=== PATIENT | female | born 1965 ===

== ENCOUNTER 2017-02-28 09:10 | Inpatient (IN) | payer OTHER, MEDICAID ==
[2017-02-28 09:15] VITALS: BMI 37.0
--- NOTE | 2017-02-28 09:19 | ED PDOC ---
Arrival/HPI - General Time Seen by Provider: 02/28/17 09:13 Historian: Patient - History of Present Illness Narrative History of Present Illness (Text): 02/28/17 09:18 51 y/o female, pmh including htn/open heart surgery with mechanical valve in 2006 which she is on the coumadin, nkda, c/o abdominal/chest pain with diarrhea and left leg pain with no fall or trauma, no recent traveling or use any oral antibiotic for the past 2-3 weeks. Pt. stated that she woke up yesterday morning around 7am, feeling nauseous/chest pain with multiple episodes of waterry stool throughout the day which the diarrhea has decrease today, no dizziness, no headache, no numbness or tingling but she started to developed lt. lower leg pain but able to bear weight and walk to the ER without limping. Pt. has no palpitation, no other medical or psychological complaints. Past Medical History - Provider Review Nursing Documentation Reviewed: Yes - Infectious Disease Hx of Infectious Diseases: None - Tetanus Immunization Tetanus Immunization: Unknown - Cardiac Hx Cardiac Disorders: Yes Hx Internal Defibrillator: Yes Hx Mitral Valve Prolapse: Yes Other/Comment: LEFT CHEST WALL IMPLANT FOR ARRYTHMIAS - Pulmonary Hx Respiratory Disorders: Yes Hx Sleep Apnea: Yes - Neurological Hx Neurological Disorder: No - HEENT Hx HEENT Disorder: No - Renal Hx Renal Disorder: No - Endocrine/Metabolic Hx Endocrine Disorders: No - Hematological/Oncological Hx Blood Disorders: Yes Other/Comment: BLOOD TRANSFUSIONS - Integumentary Hx Dermatological Disorder: No - Musculoskeletal/Rheumatological Hx Falls: No - Gastrointestinal Hx Gastrointestinal Disorders: No - Genitourinary/Gynecological Hx Genitourinary Disorders: No - Psychiatric Hx Psychophysiologic Disorder: Yes Hx Depression: Yes Hx Substance Use: No - Surgical History Hx Hysterectomy: Yes Hx Open Heart Surgery: Yes Hx Valve Replacement: Yes - Anesthesia Hx Anesthesia Reactions: No Hx Malignant Hyperthermia: No - Suicidal Assessment Feels Threatened In Home Enviroment: No Family/Social History - Physician Review Nursing Documentation Reviewed: Yes Family/Social History: Unknown Family HX Smoking Status: Never Smoked Hx Alcohol Use: No Hx Substance Use: No Hx Substance Use Treatment: No Allergies/Home Meds Allergies/Adverse Reactions: Allergies No Known Allergies Allergy (Verified 02/28/17 09:18) Home Medications: Home Meds Medication Instructions Recorded Confirmed Warfarin [Coumadin] 5 mg PO DAILY 07/31/12 02/28/17 Acetaminophen/Oxycodone Hydr 1 tab PO PRN PRN 08/22/15 02/28/17 [Percocet 10/325 mg Tab] Furosemide [Lasix] 40 mg PO .THREETIMESPER WEEK PRN 08/22/15 02/28/17 Albuterol Sulfate [Proair Hfa] 1 inh INH PRN PRN 02/02/17 02/28/17 Carvedilol [Coreg] 3.125 mg PO BID 02/02/17 02/28/17 Lisinopril [Zestril] 5 mg PO DAILY 02/02/17 02/28/17 Zolpidem [Ambien] 10 mg PO HS 02/28/17 02/28/17 Review of Systems - Review of Systems Constitutional: Fatigue. absent: Fevers Eyes: absent: Vision Changes ENT: absent: Hearing Changes Respiratory: absent: SOB, Cough Cardiovascular: Chest Pain Gastrointestinal: Abdominal Pain, Diarrhea, Nausea. absent: Constipation, Vomiting, Hematochezia Genitourinary Female: absent: Dysuria, Frequency Musculoskeletal: Myalgias. absent: Arthralgias, Back Pain, Neck Pain, Joint Swelling Skin: absent: Rash, Pruritis, Skin Lesions, Laceration, Abscess, Ulcer, Cellulitis Neurological: absent: Headache, Dizziness, Focal Weakness, Gait Changes, Speech Changes, Facial Droop, Disequilibrium, Seizure Psychiatric: absent: Anxiety, Depression, Suicidal Ideation Physical Exam Vital Signs Reviewed: Yes Vital Signs Temp Pulse Resp BP Pulse Ox 02/28/17 13:00 86 18 113/79 98 02/28/17 11:00 111/85 98 02/28/17 09:59 111/83 02/28/17 09:15 97.9 F 92 H 16 99/76 L 97 Temperature: Afebrile Pulse: Regular Respiratory Rate: Normal Appearance: Positive for: Well-Appearing, Non-Toxic, Uncomfortable Pain Distress: Mild Mental Status: Positive for: Alert and Oriented X 3 - Systems Exam Head: Present: Atraumatic, Normocephalic Pupils: Present: PERRL Extroacular Muscles: Present: EOMI Conjunctiva: Present: Normal Mouth: Present: Moist Mucous Membranes Pharnyx: No: ERYTHEMA, EXUDATE, TONSILS ENLARGED, Uvular Deviation, Muffled/ Hoarse Voice, Soft Palate/Uvular Edema Nose (External): Present: Atraumatic. No: Abrasion, Contusion, Laceration Nose (Internal): Present: Normal Inspection. No: No Active Bleeding, Rhinorrhea , Septal Hematoma, Epistaxis Neck: Present: Normal Range of Motion, Trachea Midline. No: MIDLINE TENDERNESS , Lymphadenopathy Respiratory/Chest: Present: Clear to Auscultation, Good Air Exchange. No: Respiratory Distress, Accessory Muscle Use, Wheezes, Decreased Breath Sounds, Rales, Retracting, Rhonchi Cardiovascular: Present: Regular Rate and Rhythm, Normal S1, S2. No: Murmurs Abdomen: Present: Tenderness (mild epigastric and lt. sided abdominal tenderness ), Normal Bowel Sounds. No: Distention, Peritoneal Signs, Rebound, Guarding Back: Present: Normal Inspection. No: CVA Tenderness, Midline Tenderness Upper Extremity: Present: Normal Inspection. No: Cyanosis, Edema Lower Extremity: Present: Normal Inspection, Other (LLE: there is no joint bony tenderness or deformity, no ecchymosis, FROM without limitation, sensation intact, motor 5/5, +DPPT pulses, capillary refill< 2 seconds, neurovascular intact. ). No: Edema Neurological: Present: GCS=15, Speech Normal, Motor Func Grossly Intact, Gait Normal, Memory Normal Skin: Present: Warm, Dry, Normal Color. No: Rashes Lymphatic: No: Cervical Adenopathy Psychiatric: Present: Alert, Oriented x 3, Normal Insight, Normal Concentration Medical Decision Making ED Course and Treatment: 02/28/17 09:17 -labs/ua/influenza/inr level -chest x-ray/CT abdomen and pelvis/LLE venuous doppler -IVF/pepcid/zofran -Observe and reassess 02/28/17 09:48 -EKG: NSR @ 86 BPM, no ST elevation or depression, no T wave inversion, compared with previous ekg. -Chest x-ray show no active disease. -Influenza negative -Labs are non-significant except lactate dehydrogenase 1011 from 868, Troponin 0.03 from 0.01 which is indeterminate level, aspirin 325mg po ordered as the INR is 2.17 which is subtherapeutic for mechanical MVP. -UA show +UTI, IV rocephine and urine culture added. -Pt. request more pain med, IV morphine 4mg/2L nasal ordered for the patient. -Pt. will need admission to tele for further evaluation as she has indeterminate troponin level which will require series of cardiac enzyme. 02/28/17 12:42 -CT abdomen and pelvis: concerning for enteritis/colitis, IV flagyl with stool culture and c.diff added. -I offered morphine for pain medicine for her condition and problem. -I explained to the patient about the admission which she agreed to be admitted for further evaluation. -Hospitalist non destructive testing supervisor paged, pending for call back 02/28/17 13:01 -I spoke to Dr. Yuval Wood, discussed about the case/labs/radiology results, agreed on the admission to the tele floor due to troponin 0.03 which is indeterminant with normal ekg. -I discussed with DR. Vicente about the case and discussion with Dr. Wood, he will put in the admission. - Lab Interpretations Lab Results: 02/28/17 09:50 02/28/17 09:50 Lab Results 02/28/17 10:38: Urine Color Dark yellow, Urine Appearance Sl cloudy, Urine pH 5.5, Ur Specific [place] >= 1.030, Urine Protein Trace H, Urine Glucose (UA) Negative, Urine Ketones Trace H, Urine Blood Negative, Urine Nitrate Negative, Urine Bilirubin Negative, Urine Urobilinogen 0.2, Ur Leukocyte Esterase Trace H , Urine RBC 0 - 2, Urine WBC 20 - 25, Ur Epithelial Cells 6 - 8, Urine Bacteria Mod 02/28/17 09:50: WBC 6.2 D, RBC 5.18, Hgb 15.2, Hct 45.6, MCV 88.0, MCH 29.3, MCHC 33.3, RDW 15.6 H, Plt Count 279, MPV 11.4 H, Gran % 58.5, Lymph % (Auto) 30.5, Brown % (Auto) 8.1 H, Eos % (Auto) 2.3, Baso % (Auto) 0.6, Gran # 3.63, Lymph # 1.9, Brown # 0.5, Eos # 0.1, Baso # 0.04, PT 23.4 H, INR 2.17 H, APTT 43.6 H, Sodium 140, Potassium 4.2, Chloride 102, Carbon Dioxide 26, Anion Gap 16 , BUN 17, Creatinine 0.9, Est GFR ( Amer) > 60, Est GFR (Non-Af Amer) > 60, Random Glucose 79, Calcium 10.3, Total Bilirubin 0.7, AST 64 H, ALT 50, Alkaline Phosphatase 125, Lactate Dehydrogenase 1011 H, Total Creatine Kinase 78 , Troponin I 0.03 D, NT-Pro-B Natriuret Pep 185, Total Protein 9.3 H, Albumin 4.8, Globulin 4.5, Albumin/Globulin Ratio 1.1, Lipase 93, Influenza Typ A,B (EIA ) Negative for flu a/b - RAD Interpretation Radiology Orders: 02/28/17 09:35 ABD & PELVIS IV CONTRAST ONLY [CT] Stat 02/28/17 09:37 CHEST PORTABLE [RAD] Stat 02/28/17 09:40 DUPLEX LOWER EXTRM VEIN LEFT [US] Stat CT Abdomen and pelvis: PROCEDURE: CT Abdomen and Pelvis with contrast HISTORY: Generalized abdominal pain with diarrhea COMPARISON: None. TECHNIQUE: CT scan of the abdomen and pelvis was performed after intravenous administration of contrast. Oral contrast was not administered. Coronal and sagittal reformatted images were obtained. Contrast dose: 100 mL Omnipaque 350 Radiation dose: Total exam DLP = 1173.46 mGy-cm. This CT exam was performed using one or more of the following dose reduction techniques: Automated exposure control, adjustment of the mA and/or kV according to patient size, and/or use of iterative reconstruction technique. FINDINGS: LOWER THORAX: The lung bases are clear. LIVER: The liver is normal in size. There is homogeneous enhancement. There is mild intrahepatic biliary ductal dilatation and moderate diffuse dilatation of the common bile duct with smooth tapering without choledocholithiasis. GALLBLADDER AND BILE DUCTS: Surgically absent. PANCREAS: The pancreas is normal in size and there is homogeneous enhancement without ductal dilatation or focal mass. SPLEEN: The spleen is normal in size and there is homogeneous enhancement without focal lesion. ADRENALS: Both adrenal glands are normal in size without discrete nodule. KIDNEYS AND URETERS: Both kidneys are normal in size and there is homogeneous enhancement without hydronephrosis or nephrolithiasis. There is cortical scarring in the right lower pole. There are small cortical cysts in the left kidney. VASCULATURE: There are atherosclerotic aortoiliac calcifications. There is no aortic aneurysm. BOWEL: Status post gastric sleeve. The small bowel loops are normal in caliber and fluid-filled. There is apparent mild diffuse mural thickening and enhancement in the colon. There is no evidence of bowel obstruction. There is mild sigmoid diverticulosis without CT evidence for acute diverticulitis. APPENDIX: Normal appendix. PERITONEUM: No free fluid. No free air. LYMPH NODES: No enlarged lymph nodes. BLADDER: Partially decompressed. REPRODUCTIVE: The uterus is surgically absent. BONES: No acute fracture. Within normal limits for the patient's age. OTHER FINDINGS: There is a small sliding hiatal hernia be There is a small fat containing umbilical hernia. IMPRESSION: 1. Findings are concerning for nonspecific infectious/ inflammatory enteritis and colitis. 2. Mild intrahepatic biliary dilatation and moderate diffuse dilatation of the common bile duct is likely in keeping with postcholecystectomy status. Chest x-ray: HISTORY: medical clearance COMPARISON: 02/02/2017 FINDINGS: LUNGS: The lungs are well inflated and clear. PLEURA: No significant pleural effusion identified, no pneumothorax apparent. CARDIOVASCULAR: The heart is normal in size. Status post median sternotomy and prosthetic valve replacement. There is a left-sided transvenous permanent pacing device. OSSEOUS STRUCTURES: No significant abnormalities. VISUALIZED UPPER ABDOMEN: Normal. OTHER FINDINGS: None. IMPRESSION: No active pulmonary disease. Lt. lower venuous doppler: as per preliminary report: no acute DVT Photoengraving Machine Operator/Tender: Radiologist - EKG Interpretation EKG Interpretation (Text): 02/28/17 09:47 EKG: NSR @ 86 BPM, no ST elevation or depression, no T wave inversion, compared with previous ekg. Interpreted by ED Physician: Yes Type: 12 lead EKG Comparison: Com.w/previous EKG - Medication Orders Current Medication Orders: Sodium Chloride (Sodium Chloride 0.9%) 1,000 mls @ 500 mls/hr IV .Q2H ALYSA Last Admin: 02/28/17 10:09 Dose: 500 MLS/HR eMAR Start Stop Document 02/28/17 10:09 SS (Rec: 02/28/17 10:10 SS [id number]) Intravenous Solution Start Date 02/28/17 Start Time 10:10 End Date 02/28/17 End time 12:10 Total Infusion Time 120 Discontinued Medications Aspirin (Aspirin) 325 mg PO STAT STA Stop: 02/28/17 10:33 Last Admin: 02/28/17 11:27 Dose: 325 MG Famotidine (Pepcid) 20 mg PO STAT STA Stop: 02/28/17 09:36 Last Admin: 02/28/17 10:09 Dose: 20 MG Ceftriaxone Sodium (Rocephin 1 Gram Ivpb) 100 mls @ 200 mls/hr IVPB STAT STA PRN Reason: Protocol Stop: 02/28/17 12:05 Last Admin: 02/28/17 12:33 Dose: 200 MLS/HR eMAR Start Stop Document 02/28/17 12:33 SS (Rec: 02/28/17 12:34 SS [id number]) Intravenous Solution Start Date 02/28/17 Start Time 12:00 End Date 02/28/17 End time 12:30 Total Infusion Time 30 Metronidazole (Flagyl) 100 mls @ 100 mls/hr IVPB STAT STA PRN Reason: Protocol Stop: 02/28/17 13:35 Last Admin: 02/28/17 13:04 Dose: 100 MLS/HR eMAR Start Stop Document 02/28/17 13:04 SS (Rec: 02/28/17 13:05 SS [id number]) Intravenous Solution Start Date 02/28/17 Start Time 13:05 End Date 02/28/17 End time 14:05 Total Infusion Time 60 Iohexol (Omnipaque 350 100 Ml) Confirm Administered Dose 350 mg .ROUTE .STK-MED ONE Stop: 02/28/17 10:47 Morphine Sulfate (Morphine) 4 mg IVP STAT STA Stop: 02/28/17 10:29 Last Admin: 02/28/17 13:05 Dose: 4 MG MAR Pain Assessment Document 02/28/17 13:05 SS (Rec: 02/28/17 13:06 [id number][facility] Pain Reassessment Is this a pain reassessment? No Sleep Is patient sleeping during reassessment? No Presence of Pain Presence of Pain Yes Pain Scale Used Pain Scale Used Numeric Description Intensity of Pain at present 10 Pain Behavior Restlessness Alleviating Factors/Management Medication Techniques IVP Administration Document 02/28/17 13:05 SS (Rec: 02/28/17 13:06 [facility] [id number]) Charges for Administration # of IVP Administrations 1 Ondansetron HCl (Zofran Inj) 4 mg IVP STAT STA Stop: 02/28/17 09:36 Last Admin: 02/28/17 10:09 Dose: 4 MG IVP Administration Document 02/28/17 10:09 SS (Rec: 02/28/17 10:09 [facility] [id number]) Charges for Administration # of IVP Administrations 1 - PA / DUMPSTER OPERATOR / Resident Statement MD/DO has reviewed & agrees with the documentation as recorded. Disposition/Present on Arrival - Present on Arrival Any Indicators Present on Arrival: No History of DVT/PE: No History of Uncontrolled Diabetes: No Urinary Catheter: No History of Decub. Ulcer: No History Surgical Site Infection Following: None - Disposition Have Diagnosis and Disposition been Completed?: Yes Diagnosis: Chest pain, Colitis Disposition: HOSPITALIZED Disposition Time: 10:30 Patient Plan: Admission, Telemetry Patient Problems: Current Active Problems Problem Status Diagnosed Chest pain Acute Colitis Acute Condition: STABLE
[2017-02-28 10:01] LABS: ADD MANUAL DIFF? NO
[2017-02-28 10:05] LABS: BASO # 0.04 K/mm3 (0.0-2.0); BASO % 0.6 % (0.0-3.0); EOS # 0.1 (0.0-0.7); EOS % 2.3 % (1.5-5.0); GRAN # 3.63 (1.4-6.5); GRAN % 58.5 % (50.0-68.0); HEMATOCRIT 45.6 % (36.0-48.0); LYMPH # 1.9 (1.2-3.4); LYMPH % 30.5 % (22.0-35.0); MEAN CORPUSCULAR HEMOGLOBIN 29.3 pg (25.0-35.0); MEAN CORPUSCULAR HGB CONC 33.3 g/dl (31.0-37.0); MEAN PLATELET VOLUME 11.4 fl (7.0-11.0); MONO # 0.5 (0.1-0.6); MONO % 8.1 % (1.0-6.0); PLATELET COUNT 279 10^3/uL (120.0-450.0); RED CELL DISTRIBUTION WIDTH 15.6 % (11.5-14.5); WHITE BLOOD COUNT 6.2 10^3/ul (4.5-11.0)
[2017-02-28] MEDS: Sodium Chloride 0.9% 1,000 ML IV SCH ×2 (10:09→16:34)
[2017-02-28 10:14] LABS: ALB/GLOB RATIO 1.1 (1.1-1.8); ALKALINE PHOSPHATASE 125 U/L (38-133); ALT/SGPT 50 U/L (7-56); AST/SGOT 64 U/L (15-39); BILIRUBIN,TOTAL 0.7 mg/dL (0.2-1.3); BLOOD UREA NITROGEN 17 mg/dL (7-21); CALCIUM 10.3 mg/dL (8.4-10.5); CARBON DIOXIDE 26 mmol/L (21-33); CHLORIDE 102 mmol/L (98-107); GFR AFRICAN-AMERICAN > 60; GLUCOSE,RANDOM 79 mg/dL (70-110); LIPASE 93 U/L (23-300); POTASSIUM 4.2 mmol/L (3.6-5.0); SODIUM 140 mmol/L (132-148); TOTAL PROTEIN 9.3 g/dL (5.8-8.3)
[2017-02-28 10:15] LABS: INR 2.17 (0.93-1.08); PARTIAL THROMBOPLASTIN TIME 43.6 Seconds (23.7-30.8)
[2017-02-28 10:25] LABS: TROPONIN I 0.03 ng/mL
--- NOTE | 2017-02-28 10:34 | RAD ---
HISTORY: medical clearance COMPARISON: 02/02/2017 FINDINGS: LUNGS: The lungs are well inflated and clear. PLEURA: No significant pleural effusion identified, no pneumothorax apparent. CARDIOVASCULAR: The heart is normal in size. Status post median sternotomy and prosthetic valve replacement. There is a left-sided transvenous permanent pacing device. OSSEOUS STRUCTURES: No significant abnormalities. VISUALIZED UPPER ABDOMEN: Normal. OTHER FINDINGS: None. IMPRESSION: No active pulmonary disease.
[2017-02-28] MEDS ORDERED: Iohexol 350 MG/100 ML VIAL ONE (10:46)
[2017-02-28] MEDS: Morphine 4 mg/ml ISec IVP STA ×2 (10:48→13:05)
[2017-02-28 10:51] LABS: PH,URINE 5.5 (4.7-8.0); URINE APPEARANCE SL CLOUDY (CLEAR); URINE BILIRUBIN NEGATIVE (NEGATIVE); URINE BLOOD NEGATIVE (NEGATIVE); URINE COLOR DARK YELLOW (YELLOW); URINE GLUCOSE (UA) NEGATIVE (NEGATIVE); URINE KETONE TRACE mg/dL (NEGATIVE); URINE LEUKOCYTE ESTERASE TRACE Leu/uL (NEGATIVE); URINE PROTEIN TRACE mg/dL (<30 mg/dL); URINE UROBILINOGEN 0.2 E.U./dL (<1 E.U./dL)
[2017-02-28 11:05] LABS: URINE RBC 0 - 2 /hpf (0-2); URINE WBC 20 - 25 /hpf (0-6)
[2017-02-28 11:06] LABS: URINE BACTERIA MOD (NEG)
[2017-02-28] MEDS ORDERED: cefTRIAXone 1 gm 100 ML IVPB STA (11:36)
--- NOTE | 2017-02-28 12:25 | CT ---
PROCEDURE: CT Abdomen and Pelvis with contrast HISTORY: Generalized abdominal pain with diarrhea COMPARISON: None. TECHNIQUE: CT scan of the abdomen and pelvis was performed after intravenous administration of contrast. Oral contrast was not administered. Coronal and sagittal reformatted images were obtained. Contrast dose: 100 mL Omnipaque 350 Radiation dose: Total exam DLP = 1173.46 mGy-cm. This CT exam was performed using one or more of the following dose reduction techniques: Automated exposure control, adjustment of the mA and/or kV according to patient size, and/or use of iterative reconstruction technique. FINDINGS: LOWER THORAX: The lung bases are clear. LIVER: The liver is normal in size. There is homogeneous enhancement. There is mild intrahepatic biliary ductal dilatation and moderate diffuse dilatation of the common bile duct with smooth tapering without choledocholithiasis. GALLBLADDER AND BILE DUCTS: Surgically absent. PANCREAS: The pancreas is normal in size and there is homogeneous enhancement without ductal dilatation or focal mass. SPLEEN: The spleen is normal in size and there is homogeneous enhancement without focal lesion. ADRENALS: Both adrenal glands are normal in size without discrete nodule. KIDNEYS AND URETERS: Both kidneys are normal in size and there is homogeneous enhancement without hydronephrosis or nephrolithiasis. There is cortical scarring in the right lower pole. There are small cortical cysts in the left kidney. VASCULATURE: There are atherosclerotic aortoiliac calcifications. There is no aortic aneurysm. BOWEL: Status post gastric sleeve. The small bowel loops are normal in caliber and fluid-filled. There is apparent mild diffuse mural thickening and enhancement in the colon. There is no evidence of bowel obstruction. There is mild sigmoid diverticulosis without CT evidence for acute diverticulitis. APPENDIX: Normal appendix. PERITONEUM: No free fluid. No free air. LYMPH NODES: No enlarged lymph nodes. BLADDER: Partially decompressed. REPRODUCTIVE: The uterus is surgically absent. BONES: No acute fracture. Within normal limits for the patient's age. OTHER FINDINGS: There is a small sliding hiatal hernia be There is a small fat containing umbilical hernia. IMPRESSION: 1. Findings are concerning for nonspecific infectious/ inflammatory enteritis and colitis. 2. Mild intrahepatic biliary dilatation and moderate diffuse dilatation of the common bile duct is likely in keeping with postcholecystectomy status.
[2017-02-28] MEDS ORDERED: metroNIDAZOLE IV 500 mg/100 ml 100 ML IVPB STA (12:36)
--- NOTE | 2017-02-28 12:55 | US ---
PROCEDURE: Left lower extremity venous US HISTORY: Leg pain and swelling. Evaluate for DVT. PHYSICIAN(S): Naseem Blackburn MD. TECHNIQUE: Duplex sonography and color-flow Doppler with graded compression were used to evaluate the deep venous system of the left lower extremity. FINDINGS: The visualized deep venous system of the left lower extremity is sonographically normal and compressible. Normal wave forms and augmentation are seen. There is no sonographic evidence for deep venous thrombosis in the visualized segments of the left lower extremity. IMPRESSION: 1. No sonographic evidence for deep venous thrombosis in the visualized segments of the left lower extremity.
--- NOTE | 2017-02-28 13:45 | CARD ---
APPROVED REPORT EKG Measurement Heart [id number] <Conclusion> Normal sinus rhythm NSSTW changes Small Q in 3, F
[2017-02-28] MEDS ORDERED: HYDROmorphone 1 mg/ml ISec IVP PRN (14:27)
[2017-02-28] MEDS ORDERED: Albuterol 0.083% Inhal Sol (2.5 mg/3 mL) UD IH PRN (14:44)
[2017-02-28] MEDS ORDERED: Albuterol HFA 90 mcg/actuation (8 g) INH PRN (14:44)
--- NOTE | 2017-02-28 15:05 | CP.PCM.HP ---
<Ángel Gilman - Last Filed: 02/28/17 14:49> History of Present Illness - History of Present Illness History of Present Illness: CC: Diarrhea, nausea, vomiting HPI: Patient is a 51 y/o F with past medical hx of COPD, CHF, Rheumatic heart disease, s/p tricuspid valve repair and mitral valve replacement , cardiomyopathy, defibrillator placement, who presents with 2 days of nausea, vomiting, and diarrhea. She states she woke up yesterday morning with nausea and vomiting which was non-bloody, bilious, with food products. She continued to wretch and developed non-bloody, water, diarrhea. She reports having almost 30 bowel movements, abdominal cramping, chest heaviness, and was unable to keep down liquids. She reports she normally has bilateral edema; however due to the diarrhea, her leg swelling has improved. She reports taking an Imodium this morning which alleviated her diarrhea symptoms. She denies any changes in diet, sick contacts, or recent hospitalizations. She has not had any recent travel. A gastric sleeve was performed in 2013 and she continues to have a structured diet. She reports eating a banana, some buttered bread, and boiled chicken the night before she got sick. She complained of some left leg and back pain. She denies any SOB, new palpitations, leg swelling, headache, or fever but reports some chills and generalized weakness. PMD: Dr. Carl Saul Cardio: Dr. Moreno Quiros Pulm: Dr. Solis Past Medical hx: COPD, CHF, Rheumatic heart disease, cardiomyopathy, Surg hx: tricuspid valve repair and mitral valve replacement,defibrillator placement, cholecystectomy, gastric sleeve Family hx: DM and heart disease Social hx: denies tobacco, alcohol, or drug use Allergies: none Present on Admission - Present on Admission Any Indicators Present on Admission: No Review of Systems - Constitutional Constitutional: Chills, Weakness. absent: Fever - EENT Eyes: Change in Vision (vision getting worse over past 3 months) Ears: absent: Decreased Hearing, Tinnitus, Dizziness Nose/Mouth/Throat: Sore Throat (from vomiting). absent: Neck Pain, Neck Mass - Cardiovascular Cardiovascular: Leg Edema. absent: Chest Pain, Dyspnea - Respiratory Respiratory: Dyspnea on Exertion. absent: Cough, Dyspnea - Gastrointestinal Gastrointestinal: Abdominal Pain, Cramping, Diarrhea, Nausea, Vomiting. absent : Hematemesis, Hematochezia - Genitourinary Genitourinary: absent: Change in Urinary Stream, Difficulty Urinating, Dysuria - Musculoskeletal Musculoskeletal: Back Pain, Muscle Cramps (left leg). absent: Neck Pain, Stiffness - Integumentary Integumentary: absent: Lesions, Rash - Neurological Neurological: Weakness. absent: Dizziness, Vertigo - Psychiatric Psychiatric: absent: Anxiety, Depression - Endocrine Endocrine: Palpitations Past Patient History - Infectious Disease Hx of Infectious Diseases: None - Tetanus Immunizations Tetanus Immunization: Unknown - Past Social History Smoking Status: Never Smoked Alcohol: None Drugs: Denies Home Situation {Lives}: With Family - CARDIAC Hx Cardiac Disorders: Yes Hx Internal Defibrillator: Yes Hx Mitral Valve Prolapse: Yes Other/Comment: LEFT CHEST WALL IMPLANT FOR ARRYTHMIAS - PULMONARY Hx Respiratory Disorders: Yes Hx Sleep Apnea: Yes - NEUROLOGICAL Hx Neurological Disorder: No - HEENT Hx HEENT Problems: No - RENAL Hx Chronic Kidney Disease: No - ENDOCRINE/METABOLIC Hx Endocrine Disorders: No - HEMATOLOGICAL/ONCOLOGICAL Hx Blood Disorders: Yes Other/Comment: BLOOD TRANSFUSIONS - INTEGUMENTARY Hx Dermatological Problems: No - MUSCULOSKELETAL/RHEUMATOLOGICAL Hx Falls: No - GASTROINTESTINAL Hx Gastrointestinal Disorders: No - GENITOURINARY/GYNECOLOGICAL Hx Genitourinary Disorders: No - PSYCHIATRIC Hx Psychophysiologic Disorder: Yes Hx Depression: Yes Hx Substance Use: No - SURGICAL HISTORY Hx Hysterectomy: Yes Hx Open Heart Surgery: Yes Hx Valve Replacement: Yes - ANESTHESIA Hx Anesthesia Reactions: No Hx Malignant Hyperthermia: No Meds Allergies/Adverse Reactions: Allergies Allergy/AdvReac Type Severity Reaction Status Date / Time No Known Allergies Allergy Verified 02/28/17 09:18 Physical Exam - Constitutional Appears: Non-toxic, No Acute Distress, Other (overweight) - Head Exam Head Exam: ATRAUMATIC, NORMOCEPHALIC - Eye Exam Eye Exam: EOMI, Normal appearance, PERRL. absent: Conjunctival injection, Scleral icterus Pupil Exam: NORMAL ACCOMODATION, PERRL - Neck Exam Neck exam: Positive for: Lymphadenopathy (submandibular nodes swollen). Negative for: Tenderness, Thyromegaly - Respiratory Exam Respiratory Exam: NORMAL BREATHING PATTERN. absent: Rales, Rhonchi, Wheezes - Cardiovascular Exam Cardiovascular Exam: REGULAR RHYTHM, +S1, +S2 Additional comments: prominent heart sounds due to valve replacement - GI/Abdominal Exam GI & Abdominal Exam: Normal Bowel Sounds, Soft, Tenderness (suprapubic and epigastric) - Extremities Exam Extremities exam: Positive for: normal capillary refill, tenderness (left thigh and calf), pedal pulses present. Negative for: pedal edema - Back Exam Back exam: NORMAL INSPECTION. absent: rash noted, tenderness - Neurological Exam Neurological exam: Alert, CN II-XII Intact, Oriented x3 - Psychiatric Exam Psychiatric exam: Normal Affect, Normal Mood - Skin Skin Exam: Dry, Intact, Warm Results - Vital Signs Recent Vital Signs: Last Vital Signs Temp 97.9 F 02/28/17 09:15 Pulse 86 02/28/17 13:00 Resp 18 02/28/17 13:00 BP 113/79 02/28/17 13:00 Pulse Ox 98 02/28/17 13:00 - Labs Result Diagrams: 02/28/17 09:50 02/28/17 09:50 Assessment & Plan - Assessment and Plan (Free Text) Assessment: 51 y/o F with past medical hx of COPD, CHF, Rheumatic heart disease, s /p tricuspid valve repair and mitral valve replacement, cardiomyopathy, defibrillator placement, gastric sleeve, who presents with 2 days of nausea, vomiting, and diarrhea with diffuse abdominal and chest pain. Ct showed findings concerning for colitis/ enteritis. Plan: 1) Enteritis/Colitis * CT of the abdomen: finding concerning for nonspecific infectious/inflammatory enteritis and colitis, mild intrahepatic biliary diliateion and moderate diffuse dilation of the common bile duct [see full report] * Started on IV fluid hydration Ns 80mls/hr * Start Flagyl 500mg IVPB Q8H, and Rocephin 1gm IVPB daily * Zofran for nausea * clear liquid diet * f/u stool cultures, c. diff, and ova/parasites 2) Chest pain * Patient has extensive cardiac history * Cardiolgy consulted, help appreciated * Initial torponin negative, continue to trend * EKG showed NSR w NSSTW changes * Chest xray showed no active pulmonary disease * Continue home Coreg and Zofran * Continue home coumadin * F/u INR * F/U lipid panel * F/U thyroid function 3) UTI * urinalysis +LE and WBC * F/U urine culture * started on Rocephin IVPB daily 4) COPD * Continue home proair and Ventolin 5) Leg pain * Ultrasound showed no evidence of DVT [see full report] * pain control with tylenol 650mg mild pain, Morphine 1mg IVP moderate pain 6) PPX * anticoagulated on coumadin * SCD's * Protonix Assessment and plan discussed with attending physician. <Abhi Williamson - Last Filed: 02/28/17 15:41> Results - Vital Signs Recent Vital Signs: Last Vital Signs Temp 97.9 F 02/28/17 09:15 Pulse 86 02/28/17 13:00 Resp 18 02/28/17 13:00 BP 113/79 02/28/17 13:00 Pulse Ox 98 02/28/17 13:00 - Labs Result Diagrams: 02/28/17 09:50 02/28/17 09:50 Attending/Attestation - Attestation I have personally seen and examined this patient.: Yes I have fully participated in the care of the patient.: Yes I have reviewed all pertinent clinical information: Yes Notes (Text): 02/28/17 15:35 51 year old females with past medical history of CHF, RHD, history of cardiomyopathy s/p defribrillator, s/p tricuspid and mitral valve replacement, s /p gastric sleeve and COPD who presents with complaint of nausea, vomiting, abdominal pain and diarrhea x [address] abd/pelvis showed findings of colitis/ enteritis. Will start on iv fluids, antiemetics and antibiotics with liquid diet for now and advance as tolerated. Stool workup is ordered. UA shows trace LE with 20-25 wbcs. Continue with antibiotics while awaiting urine culture. She also complains of chest pain and palpitations. Will obtain serial cardiac enzymes and request cardiology evaluation. TSH level is also ordered. Continue with home medications for COPD. She is on coumadin for anticoagulation. Abhi Williamson MD Hospitalist.
[2017-02-28] MEDS ORDERED: Pneumococcal 23-Valent Vaccine IM ONE (16:10)
[2017-02-28] MEDS: Morphine 2 mg/ml ISec IVP PRN ×2 (16:34→21:48)
[2017-02-28 18:54] LABS: TROPONIN I 0.02 ng/mL
[2017-02-28 19:21] LABS: FREE T4 0.98 ng/dL (0.78-2.19)
[2017-02-28 19:34] LABS: THYROID STIMULATING HORMONE 3.4 mIU/mL (0.46-4.68)
[2017-02-28] MEDS: metroNIDAZOLE IV 500 mg/100 ml 100 ML IVPB SCH (21:49)
[2017-03-01 02:32] LABS: TROPONIN I 0.02 ng/mL
[2017-03-01] MEDS: Morphine 2 mg/ml ISec IVP PRN ×4 (05:06→21:43)
[2017-03-01] MEDS: metroNIDAZOLE IV 500 mg/100 ml 100 ML IVPB SCH ×3 (05:22→22:14)
[2017-03-01 06:23] LABS: ADD MANUAL DIFF? NO
[2017-03-01 06:46] LABS: ALB/GLOB RATIO 1.2 (1.1-1.8); ALKALINE PHOSPHATASE 92 U/L (38-133); ALT/SGPT 47 U/L (7-56); AST/SGOT 44 U/L (15-39); BILIRUBIN,TOTAL 0.4 mg/dL (0.2-1.3); BLOOD UREA NITROGEN 12 mg/dL (7-21); CALCIUM 8.8 mg/dL (8.4-10.5); CARBON DIOXIDE 25 mmol/L (21-33); CHLORIDE 106 mmol/L (95-110); CHOLESTEROL 170 mg/dL (130-200); GFR AFRICAN-AMERICAN > 60; GLUCOSE,RANDOM 66 mg/dL (70-110); MAGNESIUM 1.8 mg/dL (1.7-2.2); PHOSPHOROUS 3.6 mg/dL (2.5-4.5); SODIUM 139 mmol/L (132-148); TOTAL PROTEIN 6.7 g/dL (5.8-8.3)
[2017-03-01 06:47] LABS: INR 2.53 (0.93-1.08); PARTIAL THROMBOPLASTIN TIME 43.7 Seconds (23.7-30.8)
[2017-03-01 06:54] LABS: BASO # 0.03 K/mm3 (0.0-2.0); BASO % 0.6 % (0.0-3.0); EOS # 0.2 (0.0-0.7); EOS % 3.6 % (1.5-5.0); GRAN # 1.89 (1.4-6.5); GRAN % 40.4 % (50.0-68.0); HEMATOCRIT 39.6 % (36.0-48.0); LYMPH # 2.1 (1.2-3.4); LYMPH % 43.9 % (22.0-35.0); MEAN CORPUSCULAR HEMOGLOBIN 28.4 pg (25.0-35.0); MEAN CORPUSCULAR HGB CONC 32.3 g/dl (31.0-37.0); MEAN PLATELET VOLUME 12.1 fl (7.0-11.0); MONO # 0.5 (0.1-0.6); MONO % 11.5 % (1.0-6.0); PLATELET COUNT 229 10^3/uL (120.0-450.0); RED CELL DISTRIBUTION WIDTH 15.8 % (11.5-14.5); WHITE BLOOD COUNT 4.7 10^3/ul (4.5-11.0)
[2017-03-01] MEDS: Sodium Chloride 0.9% 1,000 ML IV SCH ×3 (07:34→17:09)
[2017-03-01] MEDS ORDERED: cefTRIAXone 1 gm 100 ML IVPB ONE (08:00)
[2017-03-01] MEDS ORDERED: metroNIDAZOLE IV 500 mg/100 ml 100 ML IVPB ONE (08:00)
--- NOTE | 2017-03-01 08:23 | CON ---
DATE: 02/28/2017 REASON FOR CONSULTATION: Cardiac evaluation for chest pain; history of MVR, mechanical, and tricuspi d repair; admitted with diarrhea, nausea and chest pain. BRIEF CLINICAL HISTORY: This is a 51-year-old Telugu-speaking female with past medical history sign ificant for COPD, CHF, rheumatic heart disease, status post tricuspid valve repair and mechanical hui ral valve replacement, cardiomyopathy, status post defibrillator in 06/2016, history of a loop record er link placement on 08/25/2015, who since yesterday has been feeling nauseous and abdominal pain, cr amps and 30 times she went into the bathroom so came to the Emergency Room. She lost 10 pounds of we ight since yesterday. Denies any chest pain but feels a discomfort in the chest starting from abdome n and goes to the chest. Denies any shortness of breath, any palpitation. PAST MEDICAL HISTORY: Significant for status post tricuspid repair, status post mechanical mitral va lve replacement in 2007, open heart surgery. Normal coronaries at that time. Cardiomyopathy, rheuma tic heart valve disease, cardiomyopathy, defibrillator since 06/[address] Moreno Quiros and since the n the defibrillator went off 3 times, status post link loop recorder placement by va on 08/25/2015 at [facility], cardiomyopathy. CARDIAC WORKUP: The patient had echo on 07/2015: Ejection fraction 50%, mild MR, mild TR, MILD AR. Bilateral carotid 07/2015 showed 20-39% bilateral carotid artery noted. A stress test of 07/2015: Preserved LV function, no reversible ischemia, dated 07/2015. A right heart catheterization in 11/09 15: Pulmonary hypertension was reported. No details is available. CURRENT MEDICATIONS: The patient is taking Ambien, warfarin, lisinopril, Lasix, Coreg 3.125 mg, Prov entil inhaler. SOCIAL HISTORY: Denies smoking. Denies any history of alcohol abuse. PAST SURGICAL HISTORY: Significant for open heart surgery 2007, mechanical mitral valve replacement, tricuspid repair; cholecystectomy, gastric sleeve operation; status post loop recorder, ____ placeme nt on 08/25/2015, status post defibrillator done by Dr. Moreno Quiros at [facility] in 06/2016. REVIEW OF SYSTEMS: As per HPI. PHYSICAL EXAMINATION: VITAL SIGNS: Temperature afebrile, heart rate 86, blood pressure 113/79. HEENT: PERRLA. Extraocular muscles intact. NECK: Supple. No carotid bruits. No thyromegaly. CHEST: Clear to auscultation. HEART: S1, S2 regular. ABDOMEN: Soft. EXTREMITIES: Clubbing and cyanosis negative. BLOOD WORKUP: WBC 6.2, hemoglobin 15.____, hematocrit 45.6, platelet count 279. Chemistry shows sod ium 140, potassium 4.2, chloride 102, carbon dioxide 26, anion gap of 16, BUN 17, creatinine 0.9. La ctate 1011. Troponin 0.3. IMPRESSION: Obesity, body mass 37 kg/m2; diarrhea, rule out gastroenteritis. No documented coronary artery disease, status post open heart surgery for valvular dysfunction secondary to rheumatic heart disease; mechanical mitral valve placement, tricuspid repair 2007, status post arrhythmia, defibrill ator shock 3 times, status post defibrillator placed in 06/2016, status post loop recorder on 015; hypertension, hyperlipidemia. EKG shows normal sinus. No acute ST-T changes noted. RECOMMENDATION: Continue IV fluid. Check for orthostatic hypotension. Continue anticoagulation. T he patient has mechanical valve. INR is 2. Follow up INR with antibiotic to prevent overshooting. Will get echo to assess LV function. GI workup as per GI health management consultant. We will follow with you. Thank you, Dr. Yuval Wood, for providing this opportunity in taking care of this patient. At this t vicki, it does not sound as any acute cardiac problem. Will follow closely. Will follow with you. Moreno Chauhan MD cc: [id number] TT: 02/28/2017 18:43:32 Confirmation # [id number] Dictation # [id number] mn 03/01/2017 07:22:55
[2017-03-01] MEDS: Pantoprazole 40 mg EC Tab PO SCH (09:13)
[2017-03-01] MEDS: cefTRIAXone 1 gm 100 ML IVPB SCH (09:15)
--- NOTE | 2017-03-01 11:57 | PN ---
DATE: 03/01/2017 REASON FOR CONSULTATION AND FOLLOWUP: Cardiac evaluation for chest pain, history of MVR, mechanical tricuspid valve, admitted with diarrhea, nausea and abdominal pain radiating to the chest. BRIEF CLINICAL HISTORY: This is a 51-year-old Cymraes-speaking female with a past medical history si gnificant for COPD, CHF, rheumatic heart disease, status post mitral mechanical valve replacement and tricuspid repair in 2007, status post defibrillator done 08/25/2015, admitted with diarrhea. Denies any chest pain, shortness of breath, any palpitation. PHYSICAL EXAMINATION: VITAL SIGNS: Temperature afebrile, heart rate 57, blood pressure 119/49. HEENT: PERRLA. Extraocular muscles intact. NECK: Supple. No carotid bruits. No thyromegaly. CHEST: Clear to auscultation. HEART: S1, S2 regular. ABDOMEN: Soft. EXTREMITIES: Clubbing and cyanosis negative. LABORATORY DATA: Blood workup as follows: WBC 4.3, hemoglobin 12.8, hematocrit 39.6, platelet count 229. Chemistry shows sodium 130, potassium 4, chloride 106, carbon dioxide 25, anion gap of 12, BUN 12, creatinine 0.7. Troponin remains negative. IMPRESSION: Atypical chest pain, diarrhea, pain radiated from the epigastrium, cardiomyopathy, statu s post automatic implantable cardioverter-defibrillator, history of rheumatic heart valve disease, st atus post mitral mechanical valve replacement, tricuspid repair. INR therapeutic. RECOMMENDATION: Continue IV fluid, continue antibiotic. GI evaluation. We will discontinue telemet ry. We will decrease the dose of Coumadin because the patient is on ceftriaxone and Keflex. It will cause ____ and increase the Coumadin level, so we will decrease to 3 mg today and we will check PT/I NR tomorrow. Moreno Chauhan MD cc: [id number] TT: 03/01/2017 11:56:00 Confirmation # [id number] Dictation # [id number] tn
[2017-03-01 14:40] VITALS: RESP 20
--- NOTE | 2017-03-01 16:10 | CP.PCM.PN ---
Addendum entered and electronically signed by Ángel Gilman DO 03/01/17 16:25: Zestril held due to hypotension. Patient no longer on telemetry. C.diff negative. Original Note: <Ángel Gilman - Last Filed: 03/01/17 16:04> Subjective - Date & Time of Evaluation Date of Evaluation: 03/01/17 Time of Evaluation: 07:30 - Subjective Subjective: Dr. Gilman PGY 1 Hospitalist note Patient seen and evaluated at bedside. She states she did not sleep well over night due to frequent labs and vitals being taken. She complains of diffuse abdominal pain which has improved but continues to have waves of nausea and dizziness. She reports having a bowel movement that was more formed today as well as dark urine. She says she has difficulty drinking drinking fluids as she becomes nauseous. She currently denies any chest pain, SOB, cough, fever, or chills. She was reassured about her lab results. No adverse events were reported by nursing. Objective - Vital Signs/Intake and Output Vital Signs (last 24 hours): Temp Pulse Resp BP Pulse Ox 98 F 66 20 99/69 L 95 03/01/17 12:00 03/01/17 12:00 03/01/17 12:00 03/01/17 12:00 03/01/17 06:00 Intake and Output: 03/01/17 03/01/17 06:59 18:59 Intake Total 180 1260 Output Total 400 300 Balance -220 960 - Medications Medications: Current Medications Acetaminophen (Tylenol 325mg Tab) 650 mg PO Q6 PRN PRN Reason: Pain, Mild (1-3) Albuterol Sulfate (Albuterol 0.083% Inhal Ronda (2.5 Mg/3 Ml) Ud) 2.5 mg IH [id number] PRN PRN Reason: Wheezing Carvedilol (Coreg) 3.125 mg PO BID [facility] Last Admin: 03/01/17 09:13 Dose: 3.125 mg Sodium Chloride (Sodium Chloride 0.9%) 1,000 mls @ 80 mls/hr IV .[id number] [facility] Last Admin: 03/01/17 07:34 Dose: Not Given Ceftriaxone Sodium (Rocephin 1 Gram Ivpb) 100 mls @ 100 mls/hr IVPB DAILY [facility] PRN Reason: Protocol Last Admin: 03/01/17 09:15 Dose: 100 mls/hr Metronidazole (Flagyl) 100 mls @ 100 mls/hr IVPB Q8 [facility] PRN Reason: Protocol Last Admin: 03/01/17 14:32 Dose: 100 mls/hr Lisinopril (Zestril) 5 mg PO DAILY [facility] Last Admin: 03/01/17 09:13 Dose: 5 mg Morphine Sulfate (Morphine) 2 mg IVP Q6H PRN PRN Reason: Pain, severe (8-10) Last Admin: 03/01/17 11:13 Dose: 2 mg Ondansetron HCl (Zofran Inj) 4 mg IVP Q4 PRN PRN Reason: Nausea/Vomiting Pantoprazole Sodium (Protonix Ec Tab) 40 mg PO DAILY [facility] Last Admin: 03/01/17 09:13 Dose: 40 mg Warfarin Sodium (Coumadin) 3 mg PO 1800 [facility] PRN Reason: Protocol Zolpidem Tartrate (Ambien) 5 mg PO HS [facility] PRN Reason: Protocol Last Admin: 02/28/17 23:47 Dose: 5 mg - Labs Labs: 03/01/17 06:00 03/01/17 06:00 PT 27.3 Seconds (9.9-11.8) H 03/01/17 06:00 INR 2.53 (0.93-1.08) H 03/01/17 06:00 APTT 43.7 Seconds (23.7-30.8) H 03/01/17 06:00 - Constitutional Appears: Non-toxic, No Acute Distress - Head Exam Head Exam: ATRAUMATIC, NORMOCEPHALIC - Eye Exam Eye Exam: EOMI, Normal appearance, PERRL Pupil Exam: NORMAL ACCOMODATION, PERRL - ENT Exam ENT Exam: Mucous Membranes Moist, Normal Exam - Neck Exam Neck Exam: Normal Inspection - Respiratory Exam Respiratory Exam: Clear to Ausculation Bilateral, NORMAL BREATHING PATTERN. absent: Rales, Rhonchi, Wheezes - Cardiovascular Exam Cardiovascular Exam: REGULAR RHYTHM, +S1, +S2, Murmur Additional comments: audible valve replacement - GI/Abdominal Exam GI & Abdominal Exam: Soft, Tenderness (epigastric region), Normal Bowel Sounds - Extremities Exam Extremities Exam: Full ROM, Normal Capillary Refill, Normal Inspection. absent : Pedal Edema, Tenderness - Back Exam Back Exam: NORMAL INSPECTION. absent: CVA tenderness (L), CVA tenderness (R), tenderness, vertebral tenderness - Neurological Exam Neurological Exam: Alert, Awake, CN II-XII Intact - Psychiatric Exam Psychiatric exam: Normal Affect, Normal Mood - Skin Skin Exam: Dry, Intact, Normal Color, Warm Assessment and Plan - Assessment and Plan (Free Text) Assessment: 51 y/o F with past medical hx of COPD, CHF, Rheumatic heart disease, s /p tricuspid valve repair and mitral valve replacement, cardiomyopathy, defibrillator placement, gastric sleeve, who presents with 2 days of nausea, vomiting, and diarrhea with diffuse abdominal and chest pain. Ct showed findings concerning for colitis/ enteritis. Patient's nausea, vomiting, and diarrhea improving. She continue to be hypotensive and requiring IV fluid hydration. Plan: 1) Enteritis/Colitis * CT of the abdomen: finding concerning for nonspecific infectious/inflammatory enteritis and colitis, mild intrahepatic biliary diliateion and moderate diffuse dilation of the common bile duct [see full report] * Patient is afebrile without leukocytosis but elevated lymphocytes * Continue IV fluid hydration Ns 80mls/hr * Continue Flagyl 500mg IVPB Q8H, and Rocephin 1gm IVPB daily * Zofran for nausea- increased dose to 4mg Q4H PRN * Advance diet as tolerated * f/u stool cultures, c. diff * Influenza negative 2) Chest pain * Patient has extensive cardiac history * Cardiolgy consulted, help appreciated * Cardiac enzymes negative x3 * EKG showed NSR w NSSTW changes * Chest xray showed no active pulmonary disease * Continue home Coreg and Zestril * Continue home coumadin * Coumadin decreased by cardiology to 3mg PO daily * INR 2.5 today * Lipid panel wnl * TSH and T4 wnl * F/U official echo report 3) UTI * urinalysis +LE and WBC * F/U urine culture * started on Rocephin IVPB daily 4) COPD * Continue home proair and Ventolin 5) Leg pain * Ultrasound showed no evidence of DVT [see full report] * pain control with tylenol 650mg mild pain, Morphine 2mg IVP severe pain 6) PPX * anticoagulated on coumadin * SCD's * Protonix Assessment and plan discussed with attending physician. <Teri,Anwar A - Last Filed: 03/01/17 16:33> Objective - Vital Signs/Intake and Output Vital Signs (last 24 hours): Temp Pulse Resp BP Pulse Ox 98 F 66 20 99/69 L 95 03/01/17 12:00 03/01/17 12:00 03/01/17 12:00 03/01/17 12:00 03/01/17 06:00 Intake and Output: 03/01/17 03/01/17 06:59 18:59 Intake Total 180 1260 Output Total 400 300 Balance -220 960 - Medications Medications: Current Medications Acetaminophen (Tylenol 325mg Tab) 650 mg PO Q6 PRN PRN Reason: Pain, Mild (1-3) Albuterol Sulfate (Albuterol 0.083% Inhal Ronda (2.5 Mg/3 Ml) Ud) 2.5 mg IH [id number] PRN PRN Reason: Wheezing Carvedilol (Coreg) 3.125 mg PO BID [facility] Last Admin: 03/01/17 09:13 Dose: 3.125 mg Sodium Chloride (Sodium Chloride 0.9%) 1,000 mls @ 80 mls/hr IV .[id number] [facility] Last Admin: 03/01/17 07:34 Dose: Not Given Ceftriaxone Sodium (Rocephin 1 Gram Ivpb) 100 mls @ 100 mls/hr IVPB DAILY [facility] PRN Reason: Protocol Last Admin: 03/01/17 09:15 Dose: 100 mls/hr Metronidazole (Flagyl) 100 mls @ 100 mls/hr IVPB Q8 [facility] PRN Reason: Protocol Last Admin: 03/01/17 14:32 Dose: 100 mls/hr Lisinopril (Zestril) 5 mg PO DAILY [facility] Last Admin: 03/01/17 09:13 Dose: 5 mg Morphine Sulfate (Morphine) 2 mg IVP Q6H PRN PRN Reason: Pain, severe (8-10) Last Admin: 03/01/17 11:13 Dose: 2 mg Ondansetron HCl (Zofran Inj) 4 mg IVP Q4 PRN PRN Reason: Nausea/Vomiting Pantoprazole Sodium (Protonix Ec Tab) 40 mg PO DAILY [facility] Last Admin: 03/01/17 09:13 Dose: 40 mg Warfarin Sodium (Coumadin) 3 mg PO 1800 [facility] PRN Reason: Protocol Zolpidem Tartrate (Ambien) 5 mg PO HS [facility] PRN Reason: Protocol Last Admin: 02/28/17 23:47 Dose: 5 mg - Labs Labs: 03/01/17 06:00 03/01/17 06:00 PT 27.3 Seconds (9.9-11.8) H 03/01/17 06:00 INR 2.53 (0.93-1.08) H 03/01/17 06:00 APTT 43.7 Seconds (23.7-30.8) H 03/01/17 06:00 Attending/Attestation - Attestation I have personally seen and examined this patient.: Yes I have fully participated in the care of the patient.: Yes I have reviewed all pertinent clinical information, including history, physical exam and plan: Yes Notes (Text): 03/01/17 16:30 51 year old females with past medical history of CHF, RHD, history of cardiomyopathy s/p defribrillator, s/p tricuspid and mitral valve replacement, s /p gastric sleeve and COPD who presented with complaint of nausea, vomiting, abdominal pain and diarrhea x [address] abd/pelvis was suggestive of colitis/ enteritis. She is on iv fluids, antiemetics and antibiotics. She is on clear liquid diet. Today she still complaints of nausea, poor po intake and dizziness. Will continue with iv fluids and hold zestril. Stool for cdif was negative. Advance diet possibly to full liquid at dinner if she tolertes. UA showed trace LE with 20-25 wbcs. She is on antibiotics while awaiting urine culture. Chest pain and palpitations have resolved. Serial cardiac enzymes were negative. TFTs were normal. Cardiology evaluation was appreciated. Echocariogram is pending. Continue with home medications for COPD. She is on coumadin for anticoagulation. Abhi Williamson MD Hospitalist.
[2017-03-02] MEDS: Sodium Chloride 0.9% 1,000 ML IV SCH (05:07)
[2017-03-02] MEDS: metroNIDAZOLE IV 500 mg/100 ml 100 ML IVPB SCH ×2 (05:17→13:42)
[2017-03-02 06:40] LABS: HEMATOCRIT 36.1 % (36.0-48.0); MEAN CELL VOLUME 87.2 fL (80.0-105.0); MEAN CORPUSCULAR HEMOGLOBIN 28.5 pg (25.0-35.0); MEAN CORPUSCULAR HGB CONC 32.7 g/dl (31.0-37.0); MEAN PLATELET VOLUME 11.3 fl (7.0-11.0); PLATELET COUNT 202 10^3/uL (120.0-450.0); RED CELL DISTRIBUTION WIDTH 15.7 % (11.5-14.5); WHITE BLOOD COUNT 4.3 10^3/ul (4.5-11.0)
[2017-03-02 06:47] LABS: INR 2.81 (0.93-1.08)
[2017-03-02 06:50] LABS: ALB/GLOB RATIO 1.2 (1.1-1.8); ALKALINE PHOSPHATASE 83 U/L (38-133); ALT/SGPT 43 U/L (7-56); AST/SGOT 33 U/L (15-39); BILIRUBIN,TOTAL 0.3 mg/dL (0.2-1.3); BLOOD UREA NITROGEN 8 mg/dL (7-21); CALCIUM 8.4 mg/dL (8.4-10.5); CARBON DIOXIDE 26 mmol/L (21-33); CHLORIDE 106 mmol/L (95-110); GFR AFRICAN-AMERICAN > 60; GLUCOSE,RANDOM 68 mg/dL (70-110); POTASSIUM 3.7 mmol/L (3.6-5.0); SODIUM 140 mmol/L (132-148); TOTAL PROTEIN 6.2 g/dL (5.8-8.3)
[2017-03-02 06:59] LABS: ADD MANUAL DIFF? YES
[2017-03-02 07:19] VITALS: BP 107/70; PULSE 56; TEMP 98.2; O2SAT 98
[2017-03-02 08:22] LABS: EOSINOPHIL 2 % (0.0-3.0); NEUTROPHIL 38 % (50.0-70.0)
[2017-03-02 08:23] LABS: ANISOCYTOSIS SLIGHT; HYPOCHROMIA SLIGHT; PLATELET ESTIMATE NORMAL (NORMAL)
[2017-03-02] MEDS: cefTRIAXone 1 gm 100 ML IVPB SCH (09:06)
[2017-03-02] MEDS: Morphine 2 mg/ml ISec IVP PRN (09:13)
[2017-03-02] MEDS: Pantoprazole 40 mg EC Tab PO SCH (09:14)
--- NOTE | 2017-03-02 12:53 | PN ---
DATE: 03/02/2017 The patient in room 261, bed 2. REASON FOR CONSULTATION AND FOLLOWUP: Chest pain, history of mitral valve replacement, tricuspid matt ve repair. Admitted with diarrhea, nausea and abdominal pain radiating to the chest. HISTORY OF PRESENT ILLNESS: The patient is a 51-year-old Kinyar[place]-speaking female with past medical h istory significant for COPD, CHF, rheumatic heart disease, status post replacement of mitral valve wi th mechanical valve and the repair of tricuspid valve in 2007, status post AICD insertion 08/25/2015. Admitted with diarrhea, abdominal discomfort. Denies any chest pain, shortness of breath, or palpi tation. The patient is sitting comfortably in bed at present without any cardiac symptoms. PHYSICAL EXAMINATION: VITAL SIGNS: Blood pressure 107/70, respirations 20, pulse 56, temperature 98.2. HEAD: Normocephalic. EYES: Pupils normal. Conjunctivae normal. NOSE AND THROAT: Normal. NECK: JVP low. Carotid equal. THORAX: AP diameter normal. LUNGS: Clear. CARDIOVASCULAR: S1, S2, mechanical cardiac mitral valve sounds. No rub. ABDOMEN: Soft, no tenderness, no organomegaly. EXTREMITIES: No clubbing, no cyanosis. LABORATORY DATA: WBC 4.3, hemoglobin 11.8, hematocrit 36.1, platelet 202, sodium 140, potassium 3.7, BUN 8, creatinine 0.7. AST, ALT normal. Total protein and albumin normal. DIAGNOSES: Abdominal pain with diarrhea with atypical chest pain. Actually, pain radiated from the epigastrium toward the chest so this is gastrointestinal origin pain, cardiomyopathy, status post aut omatic implantable cardioverter-defibrillator insertion, history of rheumatic heart disease, status p ost replacement of mitral valve with mechanical valve and repair of tricuspid valve. The patient's p rothrombin time 30.3, INR 2.81, which is therapeutic. PLAN: The patient has therapeutic INR and prothrombin time. Continue Coreg 3.125 b.i.d., warfarin 3 mg p.o. daily, metronidazole 500 mg IV q.8 hours, Protonix 40 daily, Rocephin 1 gram IV daily, lisin opril 5 mg daily. The patient getting IV fluid therapy. The patient had echo yesterday, report is p ending. We will follow with you. Moreno Gallegos MD cc: [id number] TT: 03/02/2017 12:52:38 Confirmation # [id number] Dictation # [id number] sn
--- NOTE | 2017-03-02 13:34 | CP.PCM.DIS ---
<Ángel Gilman - Last Filed: 03/02/17 16:49> Provider - Provider Date of Admission: 03/01/17 14:25 Attending physician: Abhi Williamson MD Primary care physician: Carl Saul MD Consults: Dr. Moreno Chauhan Time Spent in preparation of Discharge (in minutes): 35 Hospital Course - Lab Results Lab Results: Most Recent Lab Values WBC 4.3 10^3/ul (4.5-11.0) L 03/02/17 06:00 RBC 4.14 10^6/uL (3.5-6.1) 03/02/17 06:00 Hgb 11.8 gm/dL (12.0-16.0) L 03/02/17 06:00 Hct 36.1 % (36.0-48.0) 03/02/17 06:00 MCV 87.2 fL (80.0-105.0) 03/02/17 06:00 MCH 28.5 pg (25.0-35.0) 03/02/17 06:00 MCHC 32.7 g/dl (31.0-37.0) 03/02/17 06:00 RDW 15.7 % (11.5-14.5) H 03/02/17 06:00 Plt Count 202 10^3/uL (120.0-450.0) 03/02/17 06:00 MPV 11.3 fl (7.0-11.0) H 03/02/17 06:00 Gran % 40.4 % (50.0-68.0) L 03/01/17 06:00 Lymph % (Auto) 43.9 % (22.0-35.0) H 03/01/17 06:00 [place] % (Auto) 11.5 % (1.0-6.0) H 03/01/17 06:00 Eos % (Auto) 3.6 % (1.5-5.0) 03/01/17 06:00 Baso % (Auto) 0.6 % (0.0-3.0) 03/01/17 06:00 Gran # 1.89 (1.4-6.5) 03/01/17 06:00 Lymph # 2.1 (1.2-3.4) 03/01/17 06:00 [place] # 0.5 (0.1-0.6) 03/01/17 06:00 Eos # 0.2 (0.0-0.7) 03/01/17 06:00 Baso # 0.03 K/mm3 (0.0-2.0) 03/01/17 06:00 Neutrophils % (Manual) 38 % (50.0-70.0) L 03/02/17 06:00 Lymphocytes % (Manual) 52 % (22.0-35.0) H 03/02/17 06:00 Monocytes % (Manual) 8 % (1.0-6.0) H 03/02/17 06:00 Eosinophils % (Manual) 2 % (0.0-3.0) 03/02/17 06:00 Platelet Evaluation Normal (NORMAL) 03/02/17 06:00 Hypochromasia Slight 03/02/17 06:00 Anisocytosis (manual) Slight 03/02/17 06:00 PT 30.3 Seconds (9.9-11.8) H* 03/02/17 06:00 INR 2.81 (0.93-1.08) H 03/02/17 06:00 APTT 43.7 Seconds (23.7-30.8) H 03/01/17 06:00 Sodium 140 mmol/L (132-148) 03/02/17 06:00 Potassium 3.7 mmol/L (3.6-5.0) 03/02/17 06:00 Chloride 106 mmol/L (95-110) 03/02/17 06:00 Carbon Dioxide 26 mmol/L (21-33) 03/02/17 06:00 Anion Gap 12 (10-20) 03/02/17 06:00 BUN 8 mg/dL (7-21) 03/02/17 06:00 Creatinine 0.7 mg/dL (0.5-1.4) 03/02/17 06:00 Est GFR ( Amer) > 60 03/02/17 06:00 Est GFR (Non-Af Amer) > 60 03/02/17 06:00 Random Glucose 68 mg/dL (70-110) L 03/02/17 06:00 Hemoglobin A1c 5.6 % (4.2-6.5) 03/01/17 06:00 Calcium 8.4 mg/dL (8.4-10.5) 03/02/17 06:00 Phosphorus 3.6 mg/dL (2.5-4.5) 03/01/17 06:00 Magnesium 1.8 mg/dL (1.7-2.2) 03/01/17 06:00 Total Bilirubin 0.3 mg/dL (0.2-1.3) 03/02/17 06:00 AST 33 U/L (15-39) 03/02/17 06:00 ALT 43 U/L (7-56) 03/02/17 06:00 Alkaline Phosphatase 83 U/L (38-133) 03/02/17 06:00 Lactate Dehydrogenase 758 U/L (333-699) H 03/01/17 02:00 Total Creatine Kinase 70 U/L (35-230) 03/01/17 02:00 Troponin I 0.02 ng/mL 03/01/17 02:00 NT-Pro-B Natriuret Pep 185 pg/mL (0-450) 02/28/17 09:50 Total Protein 6.2 g/dL (5.8-8.3) 03/02/17 06:00 Albumin 3.3 g/dL (3.0-4.8) 03/02/17 06:00 Globulin 2.9 gm/dL 03/02/17 06:00 Albumin/Globulin Ratio 1.2 (1.1-1.8) 03/02/17 06:00 Triglycerides 49 mg/dL (35-160) 03/01/17 06:00 Cholesterol 170 mg/dL (130-200) 03/01/17 06:00 LDL Cholesterol Direct 121 mg/dL (0-129) 03/01/17 06:00 HDL Cholesterol 39 mg/dL (29-60) 03/01/17 06:00 Lipase 93 U/L (23-300) 02/28/17 09:50 Free T4 0.98 ng/dL (0.78-2.19) 02/28/17 18:28 TSH 3rd Generation 3.40 mIU/mL (0.46-4.68) 02/28/17 18:28 Urine Color Dark yellow (YELLOW) 02/28/17 10:38 Urine Appearance Sl cloudy (CLEAR) 02/28/17 10:38 Urine pH 5.5 (4.7-8.0) 02/28/17 10:38 Ur Specific [place] >= 1.030 (1.005-1.035) 02/28/17 10:38 Urine Protein Trace mg/dL (<30 mg/dL) H 02/28/17 10:38 Urine Glucose (UA) Negative mg/dL (NEGATIVE) 02/28/17 10:38 Urine Ketones Trace mg/dL (NEGATIVE) H 02/28/17 10:38 Urine Blood Negative (NEGATIVE) 02/28/17 10:38 Urine Nitrate Negative (NEGATIVE) 02/28/17 10:38 Urine Bilirubin Negative (NEGATIVE) 02/28/17 10:38 Urine Urobilinogen 0.2 E.U./dL (<1 E.U./dL) 02/28/17 10:38 Ur Leukocyte Esterase Trace Noah/uL (NEGATIVE) H 02/28/17 10:38 Urine RBC 0 - 2 /hpf (0-2) 02/28/17 10:38 Urine WBC 20 - 25 /hpf (0-6) 02/28/17 10:38 Ur Epithelial Cells 6 - 8 /hpf (0-5) 02/28/17 10:38 Urine Bacteria Mod (NEG) 02/28/17 10:38 Influenza Typ A,B (EIA) Negative for flu a/b (NEGATIVE) 02/28/17 09:50 - Hospital Course Hospital Course: HPI: Patient is a 51 y/o F with past medical hx of COPD, CHF, Rheumatic heart disease, s/p tricuspid valve repair and mitral valve replacement , cardiomyopathy, defibrillator placement, who presents with 2 days of nausea, vomiting, and diarrhea. She states she woke up yesterday morning with nausea and vomiting which was non-bloody, bilious, with food products. She continued to wretch and developed non-bloody, water, diarrhea. She reports having almost 30 bowel movements, abdominal cramping, chest heaviness, and was unable to keep down liquids. She reports she normally has bilateral edema; however due to the diarrhea, her leg swelling has improved. She reports taking an Imodium this morning which alleviated her diarrhea symptoms. She denies any changes in diet, sick contacts, or recent hospitalizations. She has not had any recent travel. A gastric sleeve was performed in 2013 and she continues to have a structured diet. She reports eating a banana, some buttered bread, and boiled chicken the night before she got sick. She complained of some left leg and back pain. She denies any SOB, new palpitations, leg swelling, headache, or fever but reports some chills and generalized weakness. Patient is a 51 y/o F who presnted to the hospital with complaint of nausea, vomiting, diarrhea, and diffuse abdominal pain. A CT of the abdomen showed findings concerning for nonspecific infectious/inflammatory enteritis and colitis, mild intrahepatic biliary dilation and moderate diffuse dilation of the common bile duct. He she was started on Iv fluid hydration for dehydration, Flagyl, and Rocephin. A urinalysis was performed positive for leukocyte esterase and WBC, however she was asymptomatic for UTI. She complained of leg pain and an ultrasound was performed showing no evidence of DVT. Due to her extensive cardiac history, cardiology was consulted. An initial EKG showed NSR with non-specific ST wave changes. Her cardiac enzymes were negative. During her stay, she remained afebrile without leukocytosis. Stool cultures were negative and she was negative for c.diff. Evidence pointed to viral gastro-enteritis as lymphocytes were mildly elevated. Her symptoms improved with IV hydration and was able to tolerate a full liquid diet. She was determined medically stable for discharge. As her condition was likely viral and her urine culture had multiple species and she was asymptomatic for UTI, she did not require antibiotic. She was advised to:follow-up with her primary care physician and personal care worker within a week; follow up with Dr. Chauhan for Cardiology; discharged home with prescription for Zofran; take as prescribed only when needed for nausea;resume home medications; and if her condition worsens or new symptoms arise, please return to the emergency room. She verbalized understanding and was discharged home. - Date & Time of H&P Date of H&P: 02/28/17 Time of H&P: 14:49 Discharge Exam - Head Exam Head Exam: ATRAUMATIC, NORMOCEPHALIC Discharge Plan - Discharge Medications Prescriptions: Ondansetron ODT [Zofran ODT] 4 mg PO Q4H PRN #18 odt PRN Reason: Nausea/Vomiting - Follow Up Plan Condition: STABLE Disposition: HOME/ ROUTINE Instructions: Chest Pain (DC), Clear Liquid Diet (DC), Ulcerative Colitis (DC) , Full Liquid Diet (DC) Additional Instructions: You are medically stable for discharge. Please follow-up with your primary care physician and personal care worker within a week. You may also follow up with Dr. Chauhan for Cardiology. You are discharged home with prescription for Zofran. Please take as prescribed only when needed for nausea. Please resume home medications. If your condition worsens or new symptoms arise, please return to the emergency room. Referrals: Moreno Chauhan MD [Staff Provider] - Carl Saul MD [Primary Care Provider] - <Abhi Williamson - Last Filed: 03/02/17 17:23> Provider - Provider Date of Admission: 03/01/17 14:25 Attending physician: Abhi Williamson MD Primary care physician: Carl Saul MD Hospital Course - Lab Results Lab Results: Most Recent Lab Values WBC 4.3 10^3/ul (4.5-11.0) L 03/02/17 06:00 RBC 4.14 10^6/uL (3.5-6.1) 03/02/17 06:00 Hgb 11.8 gm/dL (12.0-16.0) L 03/02/17 06:00 Hct 36.1 % (36.0-48.0) 03/02/17 06:00 MCV 87.2 fL (80.0-105.0) 03/02/17 06:00 MCH 28.5 pg (25.0-35.0) 03/02/17 06:00 MCHC 32.7 g/dl (31.0-37.0) 03/02/17 06:00 RDW 15.7 % (11.5-14.5) H 03/02/17 06:00 Plt Count 202 10^3/uL (120.0-450.0) 03/02/17 06:00 MPV 11.3 fl (7.0-11.0) H 03/02/17 06:00 Gran % 40.4 % (50.0-68.0) L 03/01/17 06:00 Lymph % (Auto) 43.9 % (22.0-35.0) H 03/01/17 06:00 [place] % (Auto) 11.5 % (1.0-6.0) H 03/01/17 06:00 Eos % (Auto) 3.6 % (1.5-5.0) 03/01/17 06:00 Baso % (Auto) 0.6 % (0.0-3.0) 03/01/17 06:00 Gran # 1.89 (1.4-6.5) 03/01/17 06:00 Lymph # 2.1 (1.2-3.4) 03/01/17 06:00 [place] # 0.5 (0.1-0.6) 03/01/17 06:00 Eos # 0.2 (0.0-0.7) 03/01/17 06:00 Baso # 0.03 K/mm3 (0.0-2.0) 03/01/17 06:00 Neutrophils % (Manual) 38 % (50.0-70.0) L 03/02/17 06:00 Lymphocytes % (Manual) 52 % (22.0-35.0) H 03/02/17 06:00 Monocytes % (Manual) 8 % (1.0-6.0) H 03/02/17 06:00 Eosinophils % (Manual) 2 % (0.0-3.0) 03/02/17 06:00 Platelet Evaluation Normal (NORMAL) 03/02/17 06:00 Hypochromasia Slight 03/02/17 06:00 Anisocytosis (manual) Slight 03/02/17 06:00 PT 30.3 Seconds (9.9-11.8) H* 03/02/17 06:00 INR 2.81 (0.93-1.08) H 03/02/17 06:00 APTT 43.7 Seconds (23.7-30.8) H 03/01/17 06:00 Sodium 140 mmol/L (132-148) 03/02/17 06:00 Potassium 3.7 mmol/L (3.6-5.0) 03/02/17 06:00 Chloride 106 mmol/L (95-110) 03/02/17 06:00 Carbon Dioxide 26 mmol/L (21-33) 03/02/17 06:00 Anion Gap 12 (10-20) 03/02/17 06:00 BUN 8 mg/dL (7-21) 03/02/17 06:00 Creatinine 0.7 mg/dL (0.5-1.4) 03/02/17 06:00 Est GFR ( Amer) > 60 03/02/17 06:00 Est GFR (Non-Af Amer) > 60 03/02/17 06:00 Random Glucose 68 mg/dL (70-110) L 03/02/17 06:00 Hemoglobin A1c 5.6 % (4.2-6.5) 03/01/17 06:00 Calcium 8.4 mg/dL (8.4-10.5) 03/02/17 06:00 Phosphorus 3.6 mg/dL (2.5-4.5) 03/01/17 06:00 Magnesium 1.8 mg/dL (1.7-2.2) 03/01/17 06:00 Total Bilirubin 0.3 mg/dL (0.2-1.3) 03/02/17 06:00 AST 33 U/L (15-39) 03/02/17 06:00 ALT 43 U/L (7-56) 03/02/17 06:00 Alkaline Phosphatase 83 U/L (38-133) 03/02/17 06:00 Lactate Dehydrogenase 758 U/L (333-699) H 03/01/17 02:00 Total Creatine Kinase 70 U/L (35-230) 03/01/17 02:00 Troponin I 0.02 ng/mL 03/01/17 02:00 NT-Pro-B Natriuret Pep 185 pg/mL (0-450) 02/28/17 09:50 Total Protein 6.2 g/dL (5.8-8.3) 03/02/17 06:00 Albumin 3.3 g/dL (3.0-4.8) 03/02/17 06:00 Globulin 2.9 gm/dL 03/02/17 06:00 Albumin/Globulin Ratio 1.2 (1.1-1.8) 03/02/17 06:00 Triglycerides 49 mg/dL (35-160) 03/01/17 06:00 Cholesterol 170 mg/dL (130-200) 03/01/17 06:00 LDL Cholesterol Direct 121 mg/dL (0-129) 03/01/17 06:00 HDL Cholesterol 39 mg/dL (29-60) 03/01/17 06:00 Lipase 93 U/L (23-300) 02/28/17 09:50 Free T4 0.98 ng/dL (0.78-2.19) 02/28/17 18:28 TSH 3rd Generation 3.40 mIU/mL (0.46-4.68) 02/28/17 18:28 Urine Color Dark yellow (YELLOW) 02/28/17 10:38 Urine Appearance Sl cloudy (CLEAR) 02/28/17 10:38 Urine pH 5.5 (4.7-8.0) 02/28/17 10:38 Ur Specific [place] >= 1.030 (1.005-1.035) 02/28/17 10:38 Urine Protein Trace mg/dL (<30 mg/dL) H 02/28/17 10:38 Urine Glucose (UA) Negative mg/dL (NEGATIVE) 02/28/17 10:38 Urine Ketones Trace mg/dL (NEGATIVE) H 02/28/17 10:38 Urine Blood Negative (NEGATIVE) 02/28/17 10:38 Urine Nitrate Negative (NEGATIVE) 02/28/17 10:38 Urine Bilirubin Negative (NEGATIVE) 02/28/17 10:38 Urine Urobilinogen 0.2 E.U./dL (<1 E.U./dL) 02/28/17 10:38 Ur Leukocyte Esterase Trace Noah/uL (NEGATIVE) H 02/28/17 10:38 Urine RBC 0 - 2 /hpf (0-2) 02/28/17 10:38 Urine WBC 20 - 25 /hpf (0-6) 02/28/17 10:38 Ur Epithelial Cells 6 - 8 /hpf (0-5) 02/28/17 10:38 Urine Bacteria Mod (NEG) 02/28/17 10:38 Influenza Typ A,B (EIA) Negative for flu a/b (NEGATIVE) 02/28/17 09:50 Attending/Attestation - Attestation I have personally seen and examined this patient.: Yes I have fully participated in the care of the patient.: Yes I have reviewed all pertinent clinical information, including history, physical exam and plan: Yes Notes (Text): 03/02/17 17:19 51 year old females with past medical history of CHF, RHD, history of cardiomyopathy s/p defribrillator, s/p tricuspid and mitral valve replacement, s /p gastric sleeve and COPD who presented with complaint of nausea, vomiting, abdominal pain and diarrhea x [address] abd/pelvis was suggestive of colitis/ enteritis. She was treated with iv fluids, antiemetics and antibiotics. She was on liquid diet. Her symptoms slowly improved. Vomiting/diarrhea resolved. UCx was contaminated; stool was negative for C dif. Symptoms were likely secondary to viral enteritis and antibiotics were discontinued. She was also seen by cardiology for chest pain and palpitations which resolved. Serial cardiac enzymes were negative and TFTs were normal. She is on coumadin for anticoagulation and she was encouraged to monitor INR levels closely as outpatient. Patient is discharged home to follow up with pmd and personal care worker. Recommend to advance diet as tolerated at home. Abhi Williamson MD Hospitalist.
--- NOTE | 2017-03-02 17:28 | CARD ---
APPROVED REPORT EXAM: Two-dimensional and M-mode echocardiogram with Doppler and color Doppler. INDICATION Chest Pain LVFX 2D DIMENSIONS Left Atrium (2D)4.4 (1.6-4.0cm)IVSd1.1 (0.7-1.1cm) LVDd4.0 (3.9-5.9cm)PWd1.2 (0.7-1.1cm) LVDs2.8 (2.5-4.0cm)FS (%) 30.7 % LVEF (%)58.8 (>50%) M-Mode DIMENSIONS Aortic Root2.70 (2.2-3.7cm)Aortic Cusp Exc.1.50 (1.5-2.0cm) Aortic Valve AoV Peak Hisjzumi805.0cm/Abhilash Peak GR.14mmHgLVOT Peak Hmsylnyj90.3cm/s LVOT VTI23.00cm Mitral Valve MV E Zquyyyrb709.0cm/sMV A Fdhjdwck02.7cm/sE/A ratio1.2 TDI Lateral E' Peak V8.29cm/sMedial E' Peak V7.80cm/sE/Lateral E'13.6 E/Medial E'14.5 Pulmonary Valve PV Peak Ziywpmut16.6cm/sPV Peak Grad.2mmHg Tricuspid Valve TR Peak Pglrplkf859oa/sRAP OULSCDJT28paMmSU Peak Gr.33mmHg APSO20riWx LEFT VENTRICLE The left ventricle is normal size. There is borderline to mild concentric left ventricular hypertrophy. The left ventricular function is normal.EF-55-60% There is normal LV segmental wall motion. Transmitral Doppler flow pattern is Grade II-pseudonormal filling dynamics. No left ventricle thrombus noted on this study. There is no ventricular septal defect visualized. There is no left ventricular aneurysm. There is no mass noted in the left ventricle. RIGHT VENTRICLE The right ventricle is normal size. There is normal right ventricular wall thickness. The right ventricular systolic function is normal. ATRIA The left atrium is mildly dilated. The right atrium size is normal. The interatrial septum is intact with no evidence for an atrial septal defect. AORTIC VALVE The aortic valve is thickened but opens well. There is trace to mild aortic regurgitation. There is no aortic valvular stenosis. There is no aortic valvular vegetation. MITRAL VALVE Prosthetic mitral valve appears normal. There are no vegetationspresent on this prosthetic mitral valve. TRICUSPID VALVE The tricuspid valve leaflets are thickened , but open well. There is mild to moderate tricuspid regurgitation.RVSP-42 mmof Hg. There is no tricuspid valve stenosis. There is no tricuspid valve prolapse or vegetation. PULMONIC VALVE The pulmonic valve is borderline thickened. There is trace to mild pulmonic valvular regurgitation. There is no pulmonic valvular stenosis. GREAT VESSELS The aortic root is normal in size. The ascending aorta is normal in size. The pulmonary artery is normal. The IVC is normal in size and collapses >50% with inspiration. PERICARDIAL EFFUSION There is no pleural effusion. There is no pericardial effusion. <Conclusion> The left ventricle is normal size. There is borderline to mild concentric left ventricular hypertrophy. The left ventricular function is normal.EF-55-60% There is trace to mild aortic regurgitation. There is no aortic valvular stenosis. Prosthetic mitral valve appears normal. There are no vegetationspresent on this prosthetic mitral valve. There is mild to moderate tricuspid regurgitation.RVSP-42 mmof Hg. There is no tricuspid valve stenosis. The IVC is normal in size and collapses >50% with inspiration. There is no pericardial effusion.
== END 2017-03-02 14:01 | disposition home or self-care (01) | DRG 392 ==
LOC: ED 09:10 → ERH 13:04 → 2RNO 14:38 → OBSVTOIN 03-01 14:25 → 5RNO 03-01 21:48
PROVIDERS: ADMIT Hospitalist; ATTEND Internal Medicine
DX: A08.4 Viral intestinal infection, unspecified (principal); I11.0 Hypertensive heart disease with heart failure; I42.9 Cardiomyopathy, unspecified; I95.9 Hypotension, unspecified; I27.2 Other secondary pulmonary hypertension; I50.9 Heart failure, unspecified; N39.0 Urinary tract infection, site not specified; E78.5 Hyperlipidemia, unspecified; E66.9 Obesity, unspecified; Z68.37 Body mass index [BMI] 37.0-37.9, adult; E86.0 Dehydration; G47.30 Sleep apnea, unspecified; I09.9 Rheumatic heart disease, unspecified; I34.1 Nonrheumatic mitral (valve) prolapse; J44.9 Chronic obstructive pulmonary disease, unspecified; Z79.01 Long term (current) use of anticoagulants; Z79.899 Other long term (current) drug therapy; Z83.3 Family history of diabetes mellitus; Z90.710 Acquired absence of both cervix and uterus; Z95.2 Presence of prosthetic heart valve; Z95.810 Presence of automatic (implantable) cardiac defibrillator; Z98.84 Bariatric surgery status; R40.2412 Glasgow coma scale score 13-15, at arrival to emergency department; K44.9 Diaphragmatic hernia without obstruction or gangrene; K42.9 Umbilical hernia without obstruction or gangrene; F32.89 Other specified depressive episodes; M79.605 Pain in left leg; R07.89 Other chest pain

== ENCOUNTER 2017-03-24 18:39 | Observation (INO) | payer OTHER, MEDICAID ==
[2017-03-24 18:56] VITALS: BMI 35.4
--- NOTE | 2017-03-24 19:51 | ED PDOC ---
Arrival/HPI - General Chief Complaint: Lower Extremity Problem/Injury Time Seen by Provider: 03/24/17 19:11 Historian: Patient - History of Present Illness Narrative History of Present Illness (Text): 03/24/17 19:50 51 y.o. female whose PMHx includes Rheumatic Heart Disease s/p mitral and tricuspid valve repair, cardiomyopthy/CHF with AICD placement, and COPD who was recently hospitalized and discharged about 3 weeks ago who now returns with persisting LLE pain that she says is worse with walking and elevation and improves mildly with rest and lowering it to the ground. She says it has been swollen x 4-5 days. She has also been having upper epigastric / lower chest pain associated with palpitations, sob, and SAINI. No n/v/d or headache or fever. Past Medical History - Infectious Disease Hx of Infectious Diseases: None - Tetanus Immunization Tetanus Immunization: Unknown - Cardiac Hx Cardiac Disorders: Yes Hx Cardiac Arrhythmia: Yes Hx Hypertension: Yes Hx Internal Defibrillator: Yes (06/2016) Hx Mitral Valve Prolapse: Yes Other/Comment: open heart for tricispid valve repair, mitral valve replacement [facility] [place] 09/18/2008, hx rheumatic fever as a child, pt has a non functioning loop recorder in lower left chest - Pulmonary Hx Respiratory Disorders: Yes Hx Asthma: Yes Hx Sleep Apnea: Yes Other/Comment: has not been using home cpap, no snoring after gastric sleeve sx 2013 - Neurological Hx Neurological Disorder: No - HEENT Hx HEENT Disorder: No - Renal Hx Renal Disorder: No - Endocrine/Metabolic Hx Endocrine Disorders: No - Hematological/Oncological Hx Blood Disorders: Yes Other/Comment: BLOOD TRANSFUSIONS 2008 - Integumentary Hx Dermatological Disorder: No - Musculoskeletal/Rheumatological Hx Falls: Yes (2009) - Gastrointestinal Hx Gastroesophageal Reflux: Yes - Genitourinary/Gynecological Hx Genitourinary Disorders: No - Psychiatric Hx Psychophysiologic Disorder: Yes Hx Depression: Yes Hx Substance Use: No - Surgical History Hx Hysterectomy: Yes (2010) Hx Open Heart Surgery: Yes Hx Valve Replacement: Yes Other/Comment: gastric sleeve 2013, pt fell and shattered r ankle 2009 had plate and 16 screws inplanted 10 screws have since been removed - Anesthesia Hx Anesthesia Reactions: No Hx Malignant Hyperthermia: No - Suicidal Assessment Feels Threatened In Home Enviroment: No Family/Social History Family/Social History: Unknown Family HX Smoking Status: Never Smoked Hx Alcohol Use: No Hx Substance Use: No Hx Substance Use Treatment: No Allergies/Home Meds Allergies/Adverse Reactions: Allergies No Known Allergies Allergy (Verified 03/24/17 18:56) Home Medications: Home Meds Medication Instructions Recorded Confirmed Warfarin [Coumadin] 5 mg PO DAILY 07/31/12 02/28/17 Acetaminophen/Oxycodone Hydr 1 tab PO PRN PRN 08/22/15 02/28/17 [Percocet 10/325 mg Tab] Furosemide [Lasix] 40 mg PO .THREETIMESPER WEEK PRN 08/22/15 02/28/17 Albuterol Sulfate [Proair Hfa] 1 inh INH PRN PRN 02/02/17 02/28/17 Carvedilol [Coreg] 3.125 mg PO BID 02/02/17 02/28/17 Lisinopril [Zestril] 5 mg PO DAILY 02/02/17 02/28/17 Zolpidem [Ambien] 10 mg PO HS 02/28/17 02/28/17 Review of Systems - Review of Systems Constitutional: absent: Fevers Eyes: Normal ENT: Normal Respiratory: SOB. absent: Cough Cardiovascular: Chest Pain Gastrointestinal: absent: Abdominal Pain, Diarrhea, Nausea, Vomiting Genitourinary Female: absent: Dysuria Musculoskeletal: Other (LLE pain) Neurological: Dizziness. absent: Headache Endocrine: Normal Physical Exam Vital Signs Temp Pulse Resp BP Pulse Ox 03/24/17 18:57 98.5 F 75 16 160/99 H 98 Temperature: Afebrile Blood Pressure: Hypertensive Pulse: Regular Respiratory Rate: Normal Appearance: Positive for: Well-Appearing, Non-Toxic, Comfortable Pain Distress: None Mental Status: Positive for: Alert and Oriented X 3 - Systems Exam Head: Present: Atraumatic, Normocephalic Pupils: Present: PERRL Conjunctiva: Present: Normal Mouth: Present: Moist Mucous Membranes Pharnyx: Present: Normal. No: ERYTHEMA, EXUDATE Neck: Present: Normal Range of Motion Respiratory/Chest: Present: Clear to Auscultation, Good Air Exchange. No: Respiratory Distress, Accessory Muscle Use Cardiovascular: Present: Regular Rate and Rhythm, Murmurs, Normal S1, S2 Abdomen: Present: Normal Bowel Sounds. No: Tenderness, Distention, Peritoneal Signs Back: Present: Normal Inspection Upper Extremity: Present: Normal Inspection. No: Cyanosis, Edema Lower Extremity: Present: Normal Inspection, Edema (trace), NORMAL PULSES Neurological: Present: GCS=15, CN II-XII Intact, Speech Normal Skin: Present: Warm, Dry, Normal Color. No: Rashes Psychiatric: Present: Alert, Oriented x 3, Normal Insight, Normal Concentration Medical Decision Making ED Course and Treatment: 03/24/17 21:33 Patient with noted history of RHD with valve repair on coumadin and cardiomyopathy with AICD and leg pain. Patient has a palpable DP pulse, but symptoms include claudication and rest pain and will need vascular consult. LE doppler is negative for DVT and CXR is unremarkable. Labs are nondiagnostic. EKG is nondiagnostic as well. Given chest pain and palpitations with AICD history; she will need cardiology eval and AICD interrogation. She will also need a vascular consult for her leg given her symptoms. Case was discussed with Dr. Buitrago, covering the on-call medicine physician, Dr. Geller. - Lab Interpretations Lab Results: 03/24/17 19:48 03/24/17 19:48 Lab Results 03/24/17 20:53: Urine Color Yellow, Urine Appearance Cloudy, Urine pH 6.5, Ur Specific [place] 1.025, Urine Protein Negative, Urine Glucose (UA) Negative, Urine Ketones Negative, Urine Blood Negative, Urine Nitrate Negative, Urine Bilirubin Negative, Urine Urobilinogen 1.0 H, Ur Leukocyte Esterase Small H, Urine RBC 0 - 2, Urine WBC 20 - 25, Ur Epithelial Cells 1 - 3, Urine Bacteria Few 03/24/17 19:48: Sodium 141, Potassium 4.6, Chloride 102, Carbon Dioxide 31, Anion Gap 13, BUN 17, Creatinine 0.8, Est GFR ( Amer) > 60, Est GFR (Non- Af Amer) > 60, Random Glucose 79, Calcium 9.4, Magnesium 2.1, Total Bilirubin 0.8, AST 43 H, ALT 31, Alkaline Phosphatase 92, Lactate Dehydrogenase 1006 H, Total Creatine Kinase 94, Troponin I 0.02, NT-Pro-B Natriuret Pep 368, Total Protein 8.5 H, Albumin 4.6, Globulin 3.9, Albumin/Globulin Ratio 1.2, Lipase 279 03/24/17 19:48: PT 27.6 H, INR 2.56 H, APTT 42.2 H 03/24/17 19:48: WBC 7.8 D, RBC 4.58, Hgb 13.2, Hct 40.6, MCV 88.6, MCH 28.8, MCHC 32.5, RDW 15.6 H, Plt Count 309, MPV 12.0 H, Gran % 45.6 L, Lymph % (Auto) 43.8 H, [place] % (Auto) 7.2 H, Eos % (Auto) 2.9, Baso % (Auto) 0.5, Gran # 3.56, Lymph # 3.4, [place] # 0.6, Eos # 0.2, Baso # 0.04 - RAD Interpretation Narrative RAD Interpretations (Text): 03/24/17 21:38 CXR: no change as read by me. Radiology Orders: 03/24/17 19:30 CHEST PORTABLE [RAD] Stat 03/24/17 19:31 DUPLEX LOWER EXTRM VEIN BILAT [US] Stat - EKG Interpretation EKG Interpretation (Text): 03/24/17 21:37 NSR @ 62; no ST/T changes; normal intervals, normal axis. Interpreted by ED Physician: Yes Type: 12 lead EKG - Medication Orders Current Medication Orders: Ceftriaxone Sodium (Rocephin 1 Gram Ivpb) 100 mls @ 200 mls/hr IV ONCE STA PRN Reason: Protocol Stop: 03/24/17 22:01 Discontinued Medications Oxycodone/Acetaminophen (Percocet 5/325 Mg Tab) 1 tab PO STAT STA Stop: 03/24/17 21:18 Disposition/Present on Arrival - Present on Arrival Any Indicators Present on Arrival: No History of DVT/PE: No History of Uncontrolled Diabetes: No Urinary Catheter: No History of Decub. Ulcer: No History Surgical Site Infection Following: None - Disposition Have Diagnosis and Disposition been Completed?: Yes Diagnosis: Chest pain, Urinary tract infection, Claudication Disposition: HOSPITALIZED Disposition Time: 21:20 Patient Plan: Observation, Telemetry Condition: FAIR Discharge Instructions (ExitCare): Chest Pain (ED) Referrals: Carl Saul MD [Primary Care Provider] - Follow up with primary
[2017-03-24 19:57] LABS: ADD MANUAL DIFF? NO
[2017-03-24 20:20] LABS: BASO # 0.04 K/mm3 (0.0-2.0); BASO % 0.5 % (0.0-3.0); EOS # 0.2 (0.0-0.7); EOS % 2.9 % (1.5-5.0); GRAN # 3.56 (1.4-6.5); GRAN % 45.6 % (50.0-68.0); HEMATOCRIT 40.6 % (36.0-48.0); LYMPH # 3.4 (1.2-3.4); LYMPH % 43.8 % (22.0-35.0); MEAN CELL VOLUME 88.6 fL (80.0-105.0); MEAN CORPUSCULAR HEMOGLOBIN 28.8 pg (25.0-35.0); MEAN CORPUSCULAR HGB CONC 32.5 g/dl (31.0-37.0); MONO # 0.6 (0.1-0.6); MONO % 7.2 % (1.0-6.0); PLATELET COUNT 309 10^3/uL (120.0-450.0); RED CELL DISTRIBUTION WIDTH 15.6 % (11.5-14.5); WHITE BLOOD COUNT 7.8 10^3/ul (4.5-11.0)
[2017-03-24 20:27] LABS: ALB/GLOB RATIO 1.2 (1.1-1.8); ALKALINE PHOSPHATASE 92 U/L (38-133); ALT/SGPT 31 U/L (7-56); AST/SGOT 43 U/L (15-39); BILIRUBIN,TOTAL 0.8 mg/dL (0.2-1.3); BLOOD UREA NITROGEN 17 mg/dL (7-21); CALCIUM 9.4 mg/dL (8.4-10.5); CARBON DIOXIDE 31 mmol/L (21-33); CHLORIDE 102 mmol/L (98-107); GFR AFRICAN-AMERICAN > 60; GLUCOSE,RANDOM 79 mg/dL (70-110); LIPASE 279 U/L (23-300); MAGNESIUM 2.1 mg/dL (1.7-2.2); SODIUM 141 mmol/L (132-148); TOTAL PROTEIN 8.5 g/dL (5.8-8.3)
[2017-03-24 20:28] LABS: POTASSIUM 4.6 mmol/L (3.6-5.0)
[2017-03-24 20:37] LABS: TROPONIN I 0.02 ng/mL
[2017-03-24 20:49] LABS: INR 2.56 (0.93-1.08); PARTIAL THROMBOPLASTIN TIME 42.2 Seconds (23.7-30.8)
[2017-03-24 21:12] LABS: PH,URINE 6.5 (4.7-8.0); URINE BILIRUBIN NEGATIVE (NEGATIVE); URINE BLOOD NEGATIVE (NEGATIVE); URINE GLUCOSE (UA) NEGATIVE (NEGATIVE); URINE KETONE NEGATIVE (NEGATIVE); URINE LEUKOCYTE ESTERASE SMALL Leu/uL (NEGATIVE); URINE PROTEIN NEGATIVE mg/dL (<30 mg/dL)
[2017-03-24] MEDS ORDERED: Oxycodone/Acetaminophen 5/325 mg Tab PO STA (21:17)
[2017-03-24 21:20] LABS: URINE APPEARANCE CLOUDY (CLEAR); URINE COLOR YELLOW (YELLOW)
[2017-03-24 21:27] LABS: URINE BACTERIA FEW (NEG); URINE RBC 0 - 2 /hpf (0-2); URINE WBC 20 - 25 /hpf (0-6)
[2017-03-24] MEDS ORDERED: cefTRIAXone 1 gm 1 GM/100 ML BAG IV STA (21:32)
--- NOTE | 2017-03-25 01:58 | CP.PCM.PN ---
Subjective - Date & Time of Evaluation Date of Evaluation: 03/25/17 Time of Evaluation: 01:57 - Subjective Subjective: Patient was seen at bedside because she requested few of her home meds that she has not had yet. States that she got percocet 5/325 for pain in her leg in the ER but it did not help much. She also requested her coumadin which she takes for her heart valve surgery. Also, she complains of insomnia. states that she takes ambien at home. She has left leg pain. Has no other complaints at this time. This 51 year old woman was admitted with left lower extremity pain,palpitation, sob,chest pain, UTI ,claudication. Has PMH of rheumatic heart disease, mitral & tricuspid valve repair, AICD, cardiomyopathy, COPD, HTN, asthma, obesity. Objective - Vital Signs/Intake and Output Vital Signs (last 24 hours): Temp Pulse Resp BP Pulse Ox 98.5 F 63 16 122/72 98 03/24/17 18:57 03/24/17 23:50 03/24/17 23:55 03/24/17 23:50 03/24/17 23:55 - Labs Labs: PT 27.6 Seconds (9.9-11.8) H 03/24/17 19:48 INR 2.56 (0.93-1.08) H 03/24/17 19:48 APTT 42.2 Seconds (23.7-30.8) H 03/24/17 19:48 - Constitutional Appears: Well, No Acute Distress - Head Exam Head Exam: ATRAUMATIC, NORMAL INSPECTION, NORMOCEPHALIC Additional comments: obese - Eye Exam Eye Exam: Normal appearance - ENT Exam ENT Exam: Normal External Ear Exam - Neck Exam Neck Exam: Normal Inspection - Respiratory Exam Respiratory Exam: NORMAL BREATHING PATTERN - Cardiovascular Exam Cardiovascular Exam: absent: JVD - GI/Abdominal Exam GI & Abdominal Exam: absent: Distended - Rectal Exam Rectal Exam: Deferred - Extremities Exam Extremities Exam: Calf Tenderness (Left side +), Pedal Edema (Left leg swollen.) , Tenderness (left leg positive.) - Back Exam Back Exam: NORMAL INSPECTION - Neurological Exam Neurological Exam: Alert, Oriented x3 - Psychiatric Exam Psychiatric exam: Normal Affect, Normal Mood - Skin Skin Exam: Normal Color Assessment and Plan - Assessment and Plan (Free Text) Assessment: A/P: Left leg pain. Insomnia. S/P MVR. HTN. Obesity. Ultram 50 mg PO x 1. Coumadin 5 mg PO x 1. Ambien 10 mg PO x 1.
[2017-03-25] MEDS ORDERED: Pneumococcal 23-Valent Vaccine IM ONE (02:13)
[2017-03-25 02:30] LABS: TROPONIN I 0.02 ng/mL
[2017-03-25] MEDS ORDERED: Oxycodone/Acetaminophen 10/325 mg Tab PO STA (05:24)
[2017-03-25 05:45] VITALS: O2SAT 99
--- NOTE | 2017-03-25 08:47 | RAD ---
HISTORY: palpitations, shortness of breath, chest pain COMPARISON: 02/02/2017. FINDINGS: LUNGS: The lungs are well inflated and clear. PLEURA: No significant pleural effusion identified, no pneumothorax apparent. CARDIOVASCULAR: There is persistent mild cardiomegaly. Status post CABG. There is stable position of a left-sided AICD. OSSEOUS STRUCTURES: No significant abnormalities. VISUALIZED UPPER ABDOMEN: Normal. OTHER FINDINGS: None. IMPRESSION: No acute findings.
--- NOTE | 2017-03-25 10:01 | CP.PCM.CON ---
<Adelso Hurley - Last Filed: 03/25/17 10:32> History of Present Illness - History of Present Illness History of Present Illness: PGY4 GI Fellow Consult Note Patient is a 51yo female with PMHx significant for rheumatic heart disease requiring mitral valve replacement (mechanical on coumadin) and tricuspid valve repair, CHF, COPD, PUD, diverticulosis, obesity who presented to the hospital with complaint of LLE pain as well as epigastric/chest pain. The patient was recently admitted and treated for acute enteritis 3 weeks prior to this admission. She returns with complaint of 4 days of pressure-like epigastric abdominal/chest pain. In this same time frame she admits to constipation with increased effort, need for pushing/straining during stooling. She has had similar symptoms in the past and uses omeprazole PRN but did not have much relief in the past few days. Admits to one episode of nausea/vomiting this morning after breakfast but has not regularly had this symptom. Denies any weight loss, hematochezia, melena, dysphagia, odynophagia. She does admit to a history of palpitations, dyspnea with onset of these symptoms. PMHx: See HPI PSHx: Mitral valve replacement (mechanical), Tricuspid valve repair, gastric sleeve, right ankle fracture repair, total abdominal hysterectomy, AICD, cholecystectomy FHx: Sister - cardiac disease; grandmother - leukemia; aunt - breast cancer Social: Denies tobacco, EtOH or illicit drug use Endo: Colonoscopy 2 years ago - diverticulosis; EGD prior to gastric sleeve - unremarkable Review of Systems - Constitutional Constitutional: absent: Anorexia, Chills, Fatigue, Fever - EENT Eyes: absent: Change in Vision Nose/Mouth/Throat: absent: Sore Throat - Cardiovascular Cardiovascular: absent: Chest Pain, Dyspnea, Edema - Respiratory Respiratory: absent: Cough, Dyspnea, Excessive Mucous Production - Gastrointestinal Gastrointestinal: Abdominal Pain, Nausea, Vomiting. absent: Bloating, Constipation, Cramping, Diarrhea, Dyspepsia, Dysphagia, Heartburn, Hematemesis, Hematochezia, Loose Stools, Melena - Genitourinary Genitourinary: absent: Dysuria, Urinary Frequency, Urinary Urgency - Musculoskeletal Musculoskeletal: absent: Back Pain, Neck Pain - Integumentary Integumentary: absent: New Lesions, Rash - Neurological Neurological: absent: Dizziness, Numbness, Focal Weakness - Psychiatric Psychiatric: absent: Anxiety, Depression - Endocrine Endocrine: absent: Polydipsia, Polyphagia, Polyuria - Hematologic/Lymphatic Hematologic: absent: Easy Bleeding, Easy Bruising, Lymphadenopathy Past Patient History - Infectious Disease Hx of Infectious Diseases: None - Tetanus Immunizations Tetanus Immunization: Unknown - Past Social History Smoking Status: Never Smoked - CARDIAC Hx Cardiac Disorders: Yes (Cardiomyopathy) Hx Congestive Heart Failure: Yes Hx Hypertension: Yes Hx Internal Defibrillator: Yes (06/2016) Hx Mitral Valve Prolapse: Yes Other/Comment: open heart for tricispid valve repair, mitral valve replacement [facility] [place] 09/18/2008, hx rheumatic fever as a child, pt has a non functioning loop recorder in lower left chest currently not recording. - PULMONARY Hx Respiratory Disorders: Yes Hx Asthma: Yes Hx Sleep Apnea: Yes (has not been using home cpap, no snoring after gastric sleeve sx 2013) - NEUROLOGICAL Hx Neurological Disorder: Yes Hx Dizziness: Yes - HEENT Hx HEENT Problems: Yes (Reading glasses) - RENAL Hx Chronic Kidney Disease: No - ENDOCRINE/METABOLIC Hx Endocrine Disorders: No - HEMATOLOGICAL/ONCOLOGICAL Hx Blood Disorders: Yes Other/Comment: BLOOD TRANSFUSION 2008 - INTEGUMENTARY Hx Dermatological Problems: No - MUSCULOSKELETAL/RHEUMATOLOGICAL Hx Falls: Yes - GASTROINTESTINAL Hx Gastrointestinal Disorders: Yes Hx Gastroesophageal Reflux: Yes - GENITOURINARY/GYNECOLOGICAL Hx Genitourinary Disorders: No - PSYCHIATRIC Hx Substance Use: No - SURGICAL HISTORY Hx Surgeries: Yes Hx Hysterectomy: Yes (2010) Hx Open Heart Surgery: Yes Hx Valve Replacement: Yes Other/Comment: gastric sleeve 2013, pt fell and shattered r ankle 2009 had plate and 16 screws inplanted 10 screws have since been removed - ANESTHESIA Hx Anesthesia Reactions: No Hx Malignant Hyperthermia: No Meds Allergies/Adverse Reactions: Allergies Allergy/AdvReac Type Severity Reaction Status Date / Time No Known Allergies Allergy Verified 03/24/17 18:56 - Medications Medications: Current Medications Carvedilol (Coreg) 3.125 mg PO BID [facility] Last Admin: 03/25/17 09:10 Dose: 3.125 mg Ketorolac Tromethamine (Toradol) 30 mg IVP Q6 PRN PRN Reason: Pain, moderate (4-7) Last Admin: 03/25/17 07:29 Dose: 30 mg Lisinopril (Zestril) 5 mg PO DAILY [facility] Last Admin: 03/25/17 09:11 Dose: 5 mg Pantoprazole Sodium (Protonix Ec Tab) 40 mg PO 0630 ALYSA Warfarin Sodium (Coumadin) 5 mg PO 1800 [facility] PRN Reason: Protocol Zolpidem Tartrate (Ambien) 5 mg PO HS ALYSA Physical Exam - Constitutional Appears: Non-toxic, No Acute Distress - Eye Exam Eye Exam: EOMI, PERRL - ENT Exam ENT Exam: Mucous Membranes Moist - Respiratory Exam Respiratory Exam: Clear to Auscultation Bilateral. absent: Rales, Rhonchi, Wheezes - Cardiovascular Exam Cardiovascular Exam: Clicks (left 2nd intercostal space), RRR, +S1, +S2 - GI/Abdominal Exam GI & Abdominal Exam: Normal Bowel Sounds, Soft. absent: Distended, Firm, Guarding, Organomegaly, Rigid, Tenderness - Extremities Exam Additional comments: left thigh swelling noted; 2+ pedal and post tib pulses - Neurological Exam Neurological exam: Alert, Oriented x3 - Psychiatric Exam Psychiatric exam: Normal Affect, Normal Mood - Skin Skin Exam: Dry, Warm Results - Vital Signs Recent Vital Signs: Last Vital Signs Temp 97.6 F 03/25/17 05:43 Pulse 69 03/25/17 09:11 Resp 20 03/25/17 05:43 BP 136/90 03/25/17 09:11 Pulse Ox 99 03/25/17 05:43 - Labs Result Diagrams: 03/24/17 19:48 03/24/17 19:48 Labs: Laboratory Results - last 24 hr 03/25/17 01:50 Lactate Dehydrogenase 806 H Total Creatine Kinase 76 Troponin I 0.02 Assessment & Plan - Assessment and Plan (Free Text) Assessment: Patient is a 51yo female with PMHx significant for rheumatic heart disease requiring mitral valve replacement (mechanical on coumadin) and tricuspid valve repair, CHF, COPD, PUD, diverticulosis, obesity who presented to the hospital with complaint of LLE pain as well as epigastric/chest pain -Dyspepsia; R/O underlying cardiac condition given extensive history Plan: -Protonix 40mg PO QAMAC, recommend continuation on daily basis -Diet as tolerated -Recommend cardiac work up as ordered to rule out any underlying cardiac condition -Follow up as outpatient; consider EGD if symptoms persist - Date & Time Date: 03/25/17 Time: 09:00 <Lenard Kenyon - Last Filed: 03/25/17 10:39> Meds - Medications Medications: Current Medications Carvedilol (Coreg) 3.125 mg PO BID [facility] Last Admin: 03/25/17 09:10 Dose: 3.125 mg Ketorolac Tromethamine (Toradol) 30 mg IVP Q6 PRN PRN Reason: Pain, moderate (4-7) Last Admin: 03/25/17 07:29 Dose: 30 mg Lisinopril (Zestril) 5 mg PO DAILY [facility] Last Admin: 03/25/17 09:11 Dose: 5 mg Pantoprazole Sodium (Protonix Ec Tab) 40 mg PO 0630 [facility] Warfarin Sodium (Coumadin) 5 mg PO 1800 [facility] PRN Reason: Protocol Zolpidem Tartrate (Ambien) 5 mg PO HS [facility] Results - Vital Signs Recent Vital Signs: Last Vital Signs Temp 97.6 F 03/25/17 05:43 Pulse 69 03/25/17 09:11 Resp 20 03/25/17 05:43 BP 136/90 03/25/17 09:11 Pulse Ox 99 03/25/17 05:43 - Labs Result Diagrams: 03/24/17 19:48 03/24/17 19:48 Labs: Laboratory Results - last 24 hr 03/25/17 01:50 Lactate Dehydrogenase 806 H Total Creatine Kinase 76 Troponin I 0.02 Attending/Attestation - Attestation I have personally seen and examined this patient.: Yes I have fully participated in the care of the patient.: Yes I have reviewed all pertinent clinical information: Yes Notes (Text): 03/25/17 10:36 51 year old female with h/o mechanical MV, CHF, COPD, Obesity, Diverticulosis, Sleeve gastrectomy admitted with chest pain/epigastric pain. 1. Dyspepsia Plan: -recommend empiric PPI therapy as above -no indication for urgent EGD -agree with planned cardiac evaluation -if symptoms persist as an outpatient despite PPI, an EGD could be considered at that time
--- NOTE | 2017-03-25 10:51 | HP ---
I saw her this morning in her bed in room 275. She tells me the left leg is bothering her. She is h aving indigestion and middle of the chest pain. She also has a UTI she tells me. She is a 51-year-o ld female who presents being recently hospitalized and discharged about 3 weeks ago with left lower e xtremity pain. She said she had lots of tests done (they were all negative) and that when she elevat es her leg it feels better. It has been swollen for 4-5 days and now she is here. There is a venous Doppler pending; I do not have the answer yet. She also has upper epigastric pain, lower chest pain , palpitations, shortness of breath and dyspnea on exertion. PAST MEDICAL HISTORY: Rheumatoid heart disease, status post tricuspid valve repair, cardiomyopathy, CHF, AICD placement, COPD, hypertension, asthma, sleep apnea (she stopped using the CPAP). She also had gastric sleeve surgery. She had blood transfusions in the past. She had fallen in the past. Kike newton has reflux, depression, hysterectomy, open heart surgery, heart valve replacement, gastric sleeve, right ankle surgery (she has plate and screws). FAMILY HISTORY: Hypertension in the family. SOCIAL HISTORY: She never smoked, no alcohol, no drugs. ALLERGIES: No known drug allergies. MEDICATIONS: She is on Coumadin, Percocet, Lasix, ProAir, Coreg, Zestril, Ambien. REVIEW OF SYSTEMS: No change in vision or hearing. No sore throat. She has shortness of breath. T here is chest pain. There is abdominal pain and indigestion. There is left leg pain. She tells me she has a urinary tract infection but no problems urinating. She has dizziness. No headache, no num bness or tingling. PHYSICAL EXAMINATION: VITAL SIGNS: She has a 98.5 temp, 75 pulse, 16 respiratory rate, 160/99 blood pressure which is very high (I will check the numbers again), and 98% O2 sat on room air. HEENT: Head is atraumatic, normocephalic. She is a well-appearing, nontoxic, comfortable, positive, alert and oriented x 3. Extraocular muscles are intact. Throat is moist, no erythema. NECK: Supple, no JVD. HEART: Regular rate. Normal S1, S2. LUNGS: Decreased breath sounds but clear to auscultation. No wheezes, no rhonchi, no rales. ABDOMEN: Soft, nontender, positive bowel sounds. No guarding, no rebound, no CVA tenderness. EXTREMITIES: Maybe a little bit swollen on the left leg compared to the right leg, but she moves all 4 extremities well. No redness. NEUROLOGIC: She has GCS of 15. Cranial nerves II-XII grossly intact. Speech is normal. Alert and oriented x 3. SKIN: Warm and dry. LYMPHATICS: Nonpalpable lymphadenopathy appreciated. Thyroid midline. LABORATORY DATA: She had multiple tests so far. She has a 7.8 white count, 13.2 hemoglobin, 40.6 he matocrit with 309 platelets. INR is 2.56; she is on Coumadin. Sodium 141, potassium 4.6, BUN 17, cr eatinine 0.8, GFR is greater than 60, sugar 79, calcium is 9.4, magnesium 2.1. Total bili is 0.8, T is 43, ALT is 31, alkaline phosphatase 92. Lactic dehydrogenase was 1000; it is down to 806. Trop onin was 0.02 and 0.02. BNP was 368. Total protein is 8.5, albumin is 4.6, globulin 3.9, lipase is 279. Urine was clear, so no urinary tract infection. She has a venous Doppler pending and a chest x -ray pending. She will have consults with orthopedics for the left leg, GI for this tummy, and Dr. Schneider for the hea rt. She will be put on her medications plus I will add back Protonix to help her stomach, and I give her Toradol IV for the pain. I am hoping we can find this out today. She is in observation status and hope the tests come out normal. I ordered physical therapy. If she can walk well and all the do ctors say she can go, we might be able to discharge her for outpatient workup. Otherwise, will keep her, make her an inpatient if we find something. The patient has abdominal pain and left leg pain. Aashish Geller DO cc: [id number] TT: 03/25/2017 10:51:07 [facility] # [id number] [place]
--- NOTE | 2017-03-25 11:17 | CON ---
DATE: 03/25/2017 REASON FOR CONSULTATION: Left leg pain. HISTORY OF PRESENT ILLNESS: A 51-year-old female with history of coronary artery disease, rheumatoid and on warfarin medication, has been complaining of atraumatic left leg pain over the past 3-4 week s. Localizes the pain diffusely over her anterior thigh radiating down her leg. Constant in nature. Symptoms are worse with ambulating and elevating of the leg. Pain is alleviated by letting the leg hang over the edge of the bed. The patient denies numbness, trauma or paresthesia. Denies any prob lems with the other contralateral leg. She does complain of chronic bilateral feet cold intolerance. PHYSICAL EXAMINATION: BILATERAL LOWER EXTREMITIES: Compartments are soft. No swelling. Bilateral hips full range of stacey on and full flexion, adduction and rotation. Full range of motion of the knees. No instability. Al so, full range of motion at the ankles. No instability. Sensation is intact throughout bilateral lo wer extremities. Reflexes are 2+. Distal pulses are decreased on bilateral pedal pulses. No ulcers . Skin is intact. ASSESSMENT: Left leg pain, most likely secondary to vascular claudication. PLAN: I discussed the above findings with the patient. I recommend a vascular consult for further e valuation and treatment options. No orthopedic intervention at this time needed. Carmine Cortes M.D. cc: [id number] TT: 03/25/2017 11:16:40 Confirmation # [id number] Dictation # [id number] tn
[2017-03-25 12:05] LABS: TROPONIN I 0.02 ng/mL
--- NOTE | 2017-03-25 13:01 | CON ---
DATE: 03/25/2017 HISTORY OF PRESENT ILLNESS: The patient is a 51-year-old woman who presents with pain in the left lo wer extremity when she walks. PAST MEDICAL HISTORY: Notable for history of rheumatic fever which subsequently resulted in mitral v alve and tricuspid valve repair. 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 Her keno writer is in [place]. The patient denies history of peripheral vascular disease. No chest pain noted. No shortness of james ath . The patient's past medical history is notable for hypertension in which she is on carvedilol as well as lisinopril and states that she has had an ICD placed which implies that she has had a cardiomyopat hy from her valvular heart disease. No evidence for CHF now. SOCIAL HISTORY: Negative smoker. REVIEW OF SYSTEMS: A 14-point review of systems was reviewed. There are no cardiac symptoms noted, only the left thigh pain and left calf pain both at rest and during walking. PHYSICAL EXAMINATION: VITAL SIGNS: Blood pressure is 136/90. The heart rate is in the 60s. NECK: Negative JVD. LUNGS: Without rales. HEART: Reveals S1, S2 with valvular clicking heard. EXTREMITIES: Without edema. Pulses are present with 2+ dorsalis pedis as well as posterior tibial i n the left lower extremity. EKG is unremarkable. LABORATORIES: Reveal troponins are negative x 3. Hemoglobin is 13.2. Chest x-ray was done which revealed no acute findings. Echocardiogram that was done last month revealed normal LV function with an EF of 55-60%. There is a prosthetic mitral valve. In addition, there was pulmonary hypertension noted. IMPRESSION: 1. Status post mitral valve repair and tricuspid valve repair. 2. History of rheumatic fever. 3. Pulmonary hypertension. 4. Nonspecific left lower leg extremity pain with no evidence for vascular disease on exam. Given these findings, we will obtain x-rays of the knee and hip to see whether these are related. No cardiac symptomatology is noted. We will discontinue telemetry today. Naseem Schneider MD cc: [id number] TT: 03/25/2017 13:00:55 Confirmation # [id number] Dictation # [id number] tn
[2017-03-25 13:13] VITALS: BP 142/81; PULSE 70; RESP 18; TEMP 98.7
--- NOTE | 2017-03-25 13:51 | RAD ---
PROCEDURE: Left Knee Radiographs. HISTORY: Pain. COMPARISON: None. FINDINGS: BONES: Normal. No fracture. JOINTS: Normal. No osteoarthritis. JOINT EFFUSION: None. OTHER FINDINGS: None. IMPRESSION: Normal radiographs of the left knee.
--- NOTE | 2017-03-25 13:52 | RAD ---
PROCEDURE: Radiographs of the pelvis and bilateral hips HISTORY: pain COMPARISON: None. FINDINGS: BONES: Pelvis: Unremarkable. Right hip:Unremarkable. Left hip:Unremarkable. JOINTS: Right hip: Unremarkable. Left hip: Unremarkable. Sacroiliac Joints: Unremarkable. Pubic symphysis: Unremarkable. SOFT TISSUES: Normal. OTHER FINDINGS: None. IMPRESSION: Unremarkable radiographs of the hips and pelvis.
--- NOTE | 2017-03-25 14:13 | US ---
HISTORY: Leg pain and swelling. Evaluate for DVT PHYSICIAN(S): Naseem Blackburn MD. TECHNIQUE: Duplex sonography and color-flow Doppler with graded compression were used to evaluate the deep venous systems of both lower extremities. FINDINGS: The visualized deep venous systems of both lower extremities are sonographically normal and compressible. Normal wave forms and augmentation are seen. There is no sonographic evidence for deep venous thrombosis in the visualized segments of both lower extremities. IMPRESSION: No sonographic evidence for deep venous thrombosis in the visualized segments of both lower extremities.
--- NOTE | 2017-03-25 17:12 | CARD ---
APPROVED REPORT EKG Measurement Heart [id number] AL [id number] <Conclusion> Normal sinus rhythm Normal ECG
[2017-03-26] MEDS ORDERED: Pantoprazole 40 mg EC Tab PO SCH (06:30)
--- NOTE | 2017-04-02 23:05 | DS ---
She came in with pain in the chest and lower extremities. She was put in observation. She had cardi ology evaluation. She had negative troponins. The special events director felt she could be discharged. Her e jection fraction was good at 55%-60%. She will follow up with her doctors on the outpatient at [facility] and she should do well and she was able to be discharged as far as cardiology is nicolas rned. Aashish Geller DO cc: [id number] TT: 04/02/2017 23:04:58 mn
== END 2017-03-25 15:12 | disposition home or self-care (01) ==
LOC: ED 18:39 → ERH 21:27 → 2RSO 03-25
PROVIDERS: ADMIT Family Medicine; ATTEND Family Medicine
DX: M79.605 Pain in left leg (principal); I11.0 Hypertensive heart disease with heart failure; I50.9 Heart failure, unspecified; K21.9 Gastro-esophageal reflux disease without esophagitis; F32.9 Major depressive disorder, single episode, unspecified; J44.9 Chronic obstructive pulmonary disease, unspecified; G47.00 Insomnia, unspecified; K57.90 Diverticulosis of intestine, part unspecified, without perforation or abscess without bleeding; I42.9 Cardiomyopathy, unspecified; I27.2 Other secondary pulmonary hypertension; R00.2 Palpitations; J45.909 Unspecified asthma, uncomplicated; G47.30 Sleep apnea, unspecified; E66.9 Obesity, unspecified; Z98.84 Bariatric surgery status; Z95.810 Presence of automatic (implantable) cardiac defibrillator; Z87.11 Personal history of peptic ulcer disease; Z79.01 Long term (current) use of anticoagulants; Z95.2 Presence of prosthetic heart valve; Z68.36 Body mass index [BMI] 36.0-36.9, adult
CPT/HCPCS: 36415; 71010; 73502; 73560; 80053; 81001; 82550; 83615; 83690; 83735; 83880; 84484; 84703; 85025; 85610; 85730; 87040; 87086; 93005; 93970; 97116; 97162; 99285; G0378; G8978; G8979; G8980; J0696; J1885

== ENCOUNTER 2018-11-03 12:59 | Observation (INO) | payer OTHER ==
[2018-11-03] MEDS ORDERED: Sodium Chloride 0.9% 500 ML IV STA (13:19)
--- NOTE | 2018-11-03 13:26 | ED PDOC ---
Arrival/HPI - General Chief Complaint: Dizziness/Lightheaded Time Seen by Provider: 11/03/18 13:08 Historian: Patient - History of Present Illness Narrative History of Present Illness (Text): 11/03/18 13:22 A 52 year old female, whose past medical history includes mitral valve surgery, COPD, has AICD and is on coumadin, presents to the emergency department complaining of worsening generalized weakness and dyspnea since earlier today. Patient reports experiencing associated light headedness and nausea. Patient denies any fever, chills, shortness of breath, chest pain, diarrhea, vomiting, urinary symptoms, back pain, neck pain, headache, dizziness, or any other complaints. PMD: Dr. Saul 11/03/18 17:21 Time/Duration: Other (earlier today) Symptom Onset: Gradual Activities at Onset: Light Context: Home Past Medical History - Provider Review Nursing Documentation Reviewed: Yes - Infectious Disease Hx of Infectious Diseases: None - Tetanus Immunization Tetanus Immunization: Unknown - Cardiac Hx Cardiac Disorders: Yes (Cardiomyopathy) Hx Congestive Heart Failure: Yes Hx Hypertension: Yes - Pulmonary Hx Respiratory Disorders: Yes Hx Asthma: Yes Hx Sleep Apnea: Yes (has not been using home cpap, no snoring after gastric sleeve sx 2013) - Neurological Hx Neurological Disorder: Yes Hx Dizziness: Yes - HEENT Hx HEENT Disorder: Yes (Reading glasses) - Renal Hx Renal Disorder: No - Endocrine/Metabolic Hx Endocrine Disorders: No - Hematological/Oncological Hx Blood Disorders: Yes Other/Comment: BLOOD TRANSFUSION 2008 - Integumentary Hx Dermatological Disorder: No - Musculoskeletal/Rheumatological Hx Falls: Yes - Gastrointestinal Hx Gastrointestinal Disorders: Yes Hx Gastroesophageal Reflux: Yes - Genitourinary/Gynecological Hx Genitourinary Disorders: No - Psychiatric Hx Psychophysiologic Disorder: No Hx Substance Use: No - Surgical History Hx Gastric Bypass Surgery: Yes (revision 09/2018) Hx Hysterectomy: Yes (2010) Hx Open Heart Surgery: Yes Hx Valve Replacement: Yes Other/Comment: gastric sleeve 2013, pt fell and shattered r ankle 2009 had plate and 16 screws inplanted 10 screws have since been removed - Anesthesia Hx Anesthesia: Yes Hx Anesthesia Reactions: No Hx Malignant Hyperthermia: No - Suicidal Assessment Feels Threatened In Home Enviroment: No Family/Social History - Physician Review Nursing Documentation Reviewed: Yes Family/Social History: No Known Family HX Smoking Status: Never Smoked Hx Alcohol Use: No Hx Substance Use: No Hx Substance Use Treatment: No Allergies/Home Meds Allergies/Adverse Reactions: Allergies No Known Allergies Allergy (Verified 11/03/18 13:11) Home Medications: Home Meds Medication Instructions Recorded Confirmed RX: Warfarin [Coumadin] 5 mg PO DAILY 07/31/12 03/25/17 RX: Carvedilol [Coreg] 3.125 mg PO BID 02/02/17 03/25/17 RX: Lisinopril [Zestril] 5 mg PO DAILY 02/02/17 03/25/17 RX: Zolpidem [Ambien] 10 mg PO HS 02/28/17 03/25/17 Review of Systems - Physician Review All systems were reviewed & negative as marked: Yes - Review of Systems Constitutional: absent: Fevers, Night Sweats Respiratory: Other (Dyspnea). absent: SOB Cardiovascular: absent: Chest Pain Gastrointestinal: Nausea. absent: Diarrhea, Vomiting Musculoskeletal: absent: Back Pain, Neck Pain Neurological: Other (generalized weakness and light headedness). absent: Headache, Dizziness Physical Exam Vital Signs Reviewed: Yes Vital Signs Temp Pulse Resp BP Pulse Ox 11/03/18 13:07 98 F 79 19 117/79 99 Temperature: Afebrile Blood Pressure: Normal Pulse: Regular Respiratory Rate: Normal Appearance: Positive for: Well-Appearing, Non-Toxic Mental Status: Positive for: Alert and Oriented X 3 - Systems Exam Head: Present: Atraumatic, Normocephalic Pupils: Present: PERRL Extroacular Muscles: Present: EOMI Conjunctiva: Present: Normal Respiratory/Chest: Present: Clear to Auscultation, Good Air Exchange. No: Respiratory Distress, Accessory Muscle Use Cardiovascular: Present: Regular Rate and Rhythm, Normal S1, S2. No: Murmurs Abdomen: No: Tenderness, Distention, Peritoneal Signs Back: Present: Normal Inspection Upper Extremity: Present: Normal Inspection. No: Cyanosis, Edema Lower Extremity: Present: Normal Inspection. No: Edema Neurological: Present: GCS=15, CN II-XII Intact, Speech Normal Skin: Present: Pale (+pale appearing) Psychiatric: Present: Alert, Oriented x 3, Normal Insight, Normal Concentration Medical Decision Making ED Course and Treatment: 11/03/18 13:27 Impression: 52 year old female presenting to the emergency room for generalized weakness and dyspnea. ro anemia, cardiac intracranial, abodminal etiology Plan: -- EKG -- Labs -- CBC -- COAGs -- Chest X-ray -- Zofran injection -- IV fluids -- HCG, qualitative urine -- Urinalysis -- Reassess and disposition Prior Visits: Notes and results from previous visits were reviewed. Progress Notes: 11/03/18 13:42 EKG: Ordered, reviewed, and independently interpreted the EKG. Rate : 76 BPM Rhythm : NSR Interpretation : No ST-wave changes. 11/03/18 17:22 noted anemia, drop from previous. in er, guiac neg, minimal stool in rectal vault. pt with outpth/h end of nov, with similar h/h. ct neg. transfuiosn ordered. dr north accepts requests cards and neurolgy eval. - RAD Interpretation Radiology Orders: 11/03/18 13:18 CHEST PORTABLE [RAD] Stat - Medication Orders Current Medication Orders: Sodium Chloride (Sodium Chloride 0.9%) 500 mls @ 999 mls/hr IV .Q31M STA Stop: 11/03/18 13:49 Discontinued Medications Ondansetron HCl (Zofran Inj) 4 mg IVP STAT STA Stop: 11/03/18 13:20 - Scribe Statement The provider has reviewed the documentation as recorded by the Scribaman Alexander All medical record entries made by the Scribe were at my direction and personally dictated by me. I have reviewed the chart and agree that the record accurately reflects my personal performance of the history, physical exam, medical decision making, and the department course for this patient. I have also personally directed, reviewed, and agree with the discharge instructions and disposition.\ Disposition/Present on Arrival - Present on Arrival Any Indicators Present on Arrival: No History of DVT/PE: No History of Uncontrolled Diabetes: No Urinary Catheter: No History of Decub. Ulcer: No History Surgical Site Infection Following: None - Disposition Have Diagnosis and Disposition been Completed?: Yes Diagnosis: Near syncope, Anemia Disposition: HOSPITALIZED Disposition Time: 17:00 Condition: STABLE
[2018-11-03 14:06] LABS: BASO # 0.03 K/mm3 (0.0-2.0); BASO % 0.4 % (0.0-3.0); EOS # 0.2 (0.0-0.7); EOS % 2.5 % (1.5-5.0); GRAN # 4.99 (1.4-6.5); GRAN % 68.1 % (50.0-68.0); HEMOGLOBIN 8.3 g/dL (12.0-16.0); LYMPH # 1.5 (1.2-3.4); LYMPH % 20.7 % (22.0-35.0); MEAN CELL VOLUME 79.5 fl (80.0-105.0); MEAN CORPUSCULAR HEMOGLOBIN 23.9 pg (25.0-35.0); MEAN CORPUSCULAR HGB CONC 30.1 g/dl (31.0-37.0); MEAN PLATELET VOLUME 10.3 fl (7.0-11.0); MONO # 0.6 (0.1-0.6); MONO % 8.3 % (1.0-6.0); RBC 3.47 10^6/uL (3.5-6.1); WHITE BLOOD COUNT 7.3 10^3/uL (4.5-11.0)
[2018-11-03 14:15] LABS: INR 2.61; PARTIAL THROMBOPLASTIN TIME 36.5 Seconds (25.1-36.5); PROTHROMBIN TIME 30.4 SECONDS (9.4-12.5)
[2018-11-03 14:17] LABS: ALB/GLOB RATIO 1.3 (1.1-1.8); ALBUMIN 4.2 g/dL (3.0-4.8); ALT/SGPT 24 U/L (7-56); AST/SGOT 42 U/L (14-36); BLOOD UREA NITROGEN 16 mg/dL (7-21); CALCIUM 9.6 mg/dL (8.4-10.5); GFR NON-AFRICAN AMERICAN > 60; LIPASE 185 U/L (23-300)
[2018-11-03 14:28] LABS: TROPONIN I < 0.01 ng/mL
[2018-11-03 14:29] LABS: B-TYPE NATRIURETIC PEPTIDE 368 pg/mL (0-450)
--- NOTE | 2018-11-03 15:38 | RAD ---
Date of service: 11/03/2018 HISTORY: sob COMPARISON: Comparison is made with FINDINGS: LUNGS: No significant interval change in the lungs. No evidence of pleural effusion or pneumothorax. PLEURA: No significant pleural effusion identified, no pneumothorax apparent. CARDIOVASCULAR: No aortic atherosclerotic calcification present. Normal cardiac size. No pulmonary vascular congestion. OSSEOUS STRUCTURES: No significant abnormalities. VISUALIZED UPPER ABDOMEN: Normal. OTHER FINDINGS: None. IMPRESSION: No active disease.
--- NOTE | 2018-11-03 15:39 | CT ---
Date of service: 11/03/2018 PROCEDURE: CT HEAD WITHOUT CONTRAST. HISTORY: near syncope COMPARISON: Comparison is made with 09/09/2015 TECHNIQUE: Axial computed tomography images were obtained through the head/brain without intravenous contrast. Radiation dose: Total exam DLP = 918.21 mGy-cm. This CT exam was performed using one or more of the following dose reduction techniques: Automated exposure control, adjustment of the mA and/or kV according to patient size, and/or use of iterative reconstruction technique. FINDINGS: HEMORRHAGE: No intracranial hemorrhage. BRAIN: No mass effect or edema. No atrophy or chronic microvascular ischemic changes. VENTRICLES: Unremarkable. No hydrocephalus. CALVARIUM: Unremarkable. PARANASAL SINUSES: Mild mucosal thickening noted in the maxillary sinuses. MASTOID AIR CELLS: Unremarkable as visualized. No inflammatory changes. OTHER FINDINGS: None. IMPRESSION: No evidence of acute intracranial hemorrhage intracranial collection mass effect or midline shift.
--- NOTE | 2018-11-03 15:51 | CT ---
Date of service: 11/03/2018 PROCEDURE: CT Abdomen and Pelvis with contrast HISTORY: abd pain, anemia COMPARISON: Comparison is made with 02/28/2017 TECHNIQUE: Contrast dose: 147 mL of Omnipaque 350 intravenously. Axial and reformatted coronal and sagittal CT images of the abdomen and pelvis were obtained after IV contrast administration. Radiation dose: Total exam DLP = 1506.84 mGy-cm. This CT exam was performed using one or more of the following dose reduction techniques: Automated exposure control, adjustment of the mA and/or kV according to patient size, and/or use of iterative reconstruction technique. FINDINGS: LOWER THORAX: No evidence of acute pathology at the lung bases. The heart is enlarged. Postsurgical changes and pacemaker wires seen in the heart. There is a small hiatus hernia. LIVER: Unremarkable. No gross lesion or ductal dilatation. GALLBLADDER AND BILE DUCTS: Status post cholecystectomy. The common bile duct is mildly dilated likely due to prior cholecystectomy. No evidence of intrahepatic biliary ductal dilatation. PANCREAS: Unremarkable. No gross lesion or ductal dilatation. SPLEEN: Unremarkable. ADRENALS: Unremarkable. No mass. KIDNEYS AND URETERS: Unremarkable. No hydronephrosis. No solid mass. VASCULATURE: Unremarkable. No aortic aneurysm. No aortic atherosclerotic calcification or mural plaque present. BOWEL: The patient is status post prior gastric surgery likely sleeve gastrectomy. No evidence of high-grade bowel obstruction. No CT evidence of acute pathology in the GI system. Few colonic diverticulosis are noted. APPENDIX: No evidence of appendicitis. PERITONEUM: Unremarkable. No free fluid. No free air. LYMPH NODES: Unremarkable. No enlarged lymph nodes. BLADDER: The urinary bladder is not distended. REPRODUCTIVE: Uterus and adnexa are not visualized. BONES: No acute fracture. OTHER FINDINGS: None. IMPRESSION: No CT evidence of acute pathology in the abdomen and pelvis. Additional findings as discussed above
[2018-11-03 15:55] LABS: URINE BILIRUBIN NEGATIVE (NEGATIVE); URINE BLOOD NEGATIVE (NEGATIVE); URINE GLUCOSE (UA) NEGATIVE (NEGATIVE); URINE LEUKOCYTE ESTERASE SMALL Leu/uL (NEGATIVE); URINE PROTEIN NEGATIVE mg/dL (<30 mg/dL); URINE UROBILINOGEN 0.2 E.U./dL (<1 E.U./dL)
[2018-11-03 15:56] LABS: URINE APPEARANCE CLEAR (CLEAR); URINE COLOR YELLOW (YELLOW)
[2018-11-03 15:57] LABS: HCG,QUALITATIVE URINE NEGATIVE (NEGATIVE)
[2018-11-03 16:00] LABS: URINE BACTERIA TRACE (NEG); URINE RBC NEGATIVE /hpf (0-2)
[2018-11-03 18:05] VITALS: BMI 36.6
--- NOTE | 2018-11-03 18:43 | CARD ---
APPROVED REPORT Date of service: 11/03/2018 EKG Measurement Heart [id number] [id number] <Conclusion> Normal sinus rhythm Normal ECG
--- NOTE | 2018-11-04 09:07 | CON ---
DATE: 11/04/2018 REQUESTING PHYSICIAN: Dr. Perkins REASON FOR CONSULTATION: Near syncope, valvular heart disease. HISTORY: This is a 52-year-old woman with a fairly complex past medical history including mitral valve replacement and tricuspid valve annuloplasty a number of years ago, who was admitted after a near syncopal event. She states she was walking in [place] supermarket and felt extremely weak and lightheaded. She denied any palpitations. She had no defibrillator firings. She was brought to the emergency room. She was hemodynamically stable upon arrival and had no evidence of dysrhythmias. She was noted to have a hemoglobin of 8 and was transfused. She feels somewhat better. She is seen resting in bed on remote telemetry and is comfortable at the present time. She states that she had mechanical mitral valve replacement with a [employer] device in 2009, at which time tricuspid annuloplasty ring was placed as well. She reportedly has a history of left ventricular dysfunction. A defibrillator was placed in the past. She cannot recall having any shocks. She reportedly is followed by Dr. Quiros for this. At the time of her valve replacement surgery, cardiac catheterization report revealed no evidence of significant coronary disease. PAST HISTORY: Notable for gastric sleeve bariatric surgery a number of years ago, she recently underwent revision of this. She has had intermittent bowel irregularity since that time and has had some hematochezia as well. She has undergone prior right ankle surgery after a traumatic injury and had screws and plates placed at that time. MEDICATIONS AT HOME: Include Zestril 5 mg daily, Coreg 3.125 mg b.i.d., warfarin 5 mg daily and Ambien p.r.n. ALLERGIES: None. SOCIAL HISTORY: She does not smoke or drink. FAMILY HISTORY: Unremarkable for premature heart disease. REVIEW OF SYSTEMS: Ten-point review of systems is otherwise unremarkable. PHYSICAL EXAMINATION: GENERAL: She is an obese middle-aged woman. VITAL SIGNS: Her blood pressure is 110/70 with pulse of 76 and sinus, respirations are 16, she is afebrile. HEENT: Normocephalic, atraumatic. NECK: Supple. No JVD noted. CHEST: Clear to auscultation and percussion. HEART: PMI displaced laterally with crisp valve sounds heard and systolic murmur at the lower left sternal border. ABDOMEN: Soft, obese, nontender, normoactive bowel sounds. EXTREMITIES: No clubbing, cyanosis or edema. SKIN: Warm and dry. PSYCHIATRIC: Normal mood and affect. NEUROLOGIC: Alert and oriented x3. No gross motor or sensory deficits noted. DIAGNOSTIC DATA: White count 7.3, hemoglobin and hematocrit of 8.3 and 27.6 with an MCV of 79.5, platelet count is 407,000. INR 2.61. Potassium 3.9. BUN and creatinine of 16 and 0.8. LDH is 819. Troponin is negative. BNP is 368. Electrocardiogram reveals sinus rhythm with no significant abnormalities. Chest x-ray reveals post-sternotomy changes. A defibrillator system is noted in place. Abdominal and pelvic CT is reportedly unremarkable. IMPRESSION: 1. Recent near syncope, etiology unclear. Symptoms may have been exacerbated by significant anemia. She denies any dysrhythmias or defibrillator firings. She states that her hemoglobin prior to her recent gastric sleeve revision was 13, now with a resultant drop in hemoglobin of 5 g. Further evaluation is warranted. 2. Significant anemia, needs evaluation. Does have elevated lactate dehydrogenase and may have a component of hemolysis secondary to her mechanical valve replacement. 3. Status post mitral valve replacement and tricuspid valve annuloplasty. 4. History of gastric sleeve with recent revision. 5. Rest of problems as noted. RECOMMENDATIONS: 1. Attempts will be made to review old records. A followup CBC is advised. Arrangements will be made for interrogation of her [employer] defibrillator. 2. Anemia workup should proceed. 3. An echocardiogram will be ordered and reviewed. Further recommendations will be made based upon review of the above and her clinical course. Thank you for this consultation. Manuel Bejarano MD
[2018-11-04 11:06] LABS: BASO # 0.05 K/mm3 (0.0-2.0); BASO % 0.9 % (0.0-3.0); EOS # 0.3 (0.0-0.7); EOS % 4.7 % (1.5-5.0); GRAN # 2.67 (1.4-6.5); GRAN % 46.9 % (50.0-68.0); HEMOGLOBIN 9.5 g/dL (12.0-16.0); LYMPH # 2.2 (1.2-3.4); MEAN CORPUSCULAR HGB CONC 31.3 g/dl (31.0-37.0); MEAN PLATELET VOLUME 10.8 fl (7.0-11.0); MONO # 0.5 (0.1-0.6); MONO % 9.5 % (1.0-6.0); RBC 3.8 10^6/uL (3.5-6.1); RED CELL DISTRIBUTION WIDTH 18.1 % (11.5-14.5); WHITE BLOOD COUNT 5.7 10^3/uL (4.5-11.0)
[2018-11-04 11:07] LABS: INR 2.64
--- NOTE | 2018-11-04 11:09 | CP.PCM.PN ---
Subjective - Date & Time of Evaluation Date of Evaluation: 11/04/18 Time of Evaluation: 11:03 - Subjective Subjective: PGY-[address] Perkins S: Pt complained of chronic lower back pain. sharp, worsen when sitting down. Pt states that she use to take percocet at home for it. No radiation to any other places, no numbness/tingling, no weakness, no b&b incontinence. O: VS stable. Pt able to turn to recumbent position HEENT: EOMI, non icteric Card: Regular S1 S2 Pulm: CTA b/l no w/r/r Abd: soft NTND back: no bruises, SI joint tenderness b/l upon palpation Neuro: LE motor 5/5 b/1. 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 which may worsen her dizziness physical therapy Defer to primary doctor for any imaging Objective - Vital Signs/Intake and Output Vital Signs (last 24 hours): Temp Pulse Resp BP Pulse Ox 98 F 70 18 108/73 95 11/04/18 08:59 11/04/18 08:59 11/04/18 08:59 11/04/18 08:59 11/04/18 08:59 Intake and Output: 11/04/18 11/04/18 06:59 18:59 Intake Total 325 Balance 325 - Medications Medications: Current Medications Aspirin (Aspirin Chewable) 81 mg PO 2100 ALYSA Last Admin: 11/03/18 23:22 Dose: 81 mg Atorvastatin Calcium (Lipitor) 10 mg PO 2100 ALYSA Last Admin: 11/03/18 23:22 Dose: 10 mg Sotalol HCl (Betapace) 120 mg PO 2100 ALYSA Last Admin: 11/03/18 23:23 Dose: Not Given Warfarin Sodium (Coumadin) 5 mg PO 2100 ALYSA; Protocol Last Admin: 11/03/18 23:22 Dose: 5 mg - Labs Labs: 11/03/18 13:50 11/03/18 13:50 PT 30.4 SECONDS (9.4-12.5) H 11/03/18 13:50 INR 2.61 11/03/18 13:50 APTT 36.5 Seconds (25.1-36.5) 11/03/18 13:50
[2018-11-04] MEDS: Lidocaine 5% Patch TD SCH (11:21)
[2018-11-04 11:38] LABS: ALB/GLOB RATIO 1.4 (1.1-1.8); ALBUMIN 4.3 g/dL (3.0-4.8); ALT/SGPT 24 U/L (7-56); AST/SGOT 34 U/L (14-36); BLOOD UREA NITROGEN 11 mg/dL (7-21); CALCIUM 9.2 mg/dL (8.4-10.5); GFR NON-AFRICAN AMERICAN > 60
[2018-11-04 11:48] LABS: IRON 22 ug/dL (45-180)
[2018-11-04 11:57] LABS: % IRON SATURATION 4 % (20-55); TOTAL IRON BINDING CAPACITY 490 ug/dL (265-497)
[2018-11-04 16:55] VITALS: RESP 20
[2018-11-04 17:20] LABS: FERRITIN 7.7 ng/mL
[2018-11-04] MEDS ORDERED: Oxycodone/Acetaminophen 5/325 mg Tab PO PRN (18:24)
[2018-11-05 07:58] VITALS: BP 98/51; TEMP 97.8; O2SAT 100
--- NOTE | 2018-11-05 08:31 | CARD ---
APPROVED REPORT Date of service: 11/04/2018 EXAM: Two-dimensional and M-mode echocardiogram with Doppler and color Doppler. INDICATION SYNCOPE 2D DIMENSIONS IVSd1.2 (0.7-1.1cm)LVDd3.6 (3.9-5.9cm) PWd1.2 (0.7-1.1cm)LVDs2.9 (2.5-4.0cm) FS (%) 20.2 %LVEF (%)42.0 (>50%) M-Mode DIMENSIONS Left Atrium (MM)4.30 (2.5-4.0cm)Aortic Root3.10 (2.2-3.7cm) Aortic Cusp Exc.1.50 (1.5-2.0cm) Aortic Valve AoV Peak Jbqpxfdl907.0cm/Abhilash Peak GR.17mmHg Mitral Valve MV E Ddkfmgay561.0cm/s TDI Lateral E' Peak V6.43cm/sMedial E' Peak V6.63cm/sE/Lateral E'22.6 E/Medial E'21.9 Tricuspid Valve TR Peak [id number]/sRAP [id number] Peak Gr.36mmHg [id number] LEFT VENTRICLE The left ventricle is normal size. There is mild concentric left ventricular hypertrophy. The systolic function is mildly to moderately impaired. There is global hypokinesis of the left ventricle. RIGHT VENTRICLE The right ventricle is normal size. The right ventricular systolic function is normal. ATRIA The left atrium is mildly dilated. The right atrium size is normal. The interatrial septum is intact with no evidence for an atrial septal defect. AORTIC VALVE The aortic valve is mildly sclerotic. No aortic regurgitation is present. There is no aortic valvular stenosis. MITRAL VALVE There is a mechanical mitral valve. Gradients are normal for a prosthetic mitral valve. TRICUSPID VALVE The tricuspid valve leaflets are thickened , but open well. There is moderate tricuspid regurgitation. PULMONIC VALVE The pulmonary valve is normal in structure. GREAT VESSELS The aortic root is normal in size. The IVC is normal in size and collapses >50% with inspiration. PERICARDIAL EFFUSION There is no pleural effusion. There is no pericardial effusion. <Conclusion> Dilated LA. Normal LV size. Mild concentric LVH. Normally functioning mechanical mitral prosthesis. Mild to moderate LV systolic dysfunction with global hypokinesis. Moderate TR.
[2018-11-05 09:06] LABS: HEMOGLOBIN 9.2 g/dL (12.0-16.0); MEAN CELL VOLUME 80.9 fl (80.0-105.0); MEAN CORPUSCULAR HEMOGLOBIN 24.5 pg (25.0-35.0); MEAN CORPUSCULAR HGB CONC 30.3 g/dl (31.0-37.0); MEAN PLATELET VOLUME 10.3 fl (7.0-11.0); RBC 3.76 10^6/uL (3.5-6.1); RED CELL DISTRIBUTION WIDTH 18.3 % (11.5-14.5); WHITE BLOOD COUNT 6.9 10^3/uL (4.5-11.0)
[2018-11-05] MEDS: Lidocaine 5% Patch TD SCH (09:22)
--- NOTE | 2018-11-05 12:08 | PN ---
DATE: 11/05/2018 SUBJECTIVE: The patient is seen lying in bed on remote telemetry. She is feeling better. Upon transfusing, her hemoglobin is now 9.2. She denies any lightheadedness. No significant dysrhythmias have been noted. Of note, today is her first night. CURRENT MEDICATIONS: Include, aspirin, sotalol 120 mg b.i.d., warfarin, and Lipitor. PHYSICAL EXAMINATION: GENERAL: She is a middle-aged woman, who appears comfortable at the present time. VITAL SIGNS: Her blood pressure is 100/50 with pulse of 74 in sinus, respirations are 16. She is afebrile. HEENT: No JVD. CHEST: Clear to auscultation and percussion. HEART: PMI displaced laterally with systolic murmur noted at the lower left sternal border, crisp prosthetic valve sounds are heard. ABDOMEN: Soft and nontender, normoactive bowel sounds. EXTREMITIES: No edema. DIAGNOSTIC DATA: White count 6.9, hemoglobin and hematocrit 9.2 and 30.4, platelets count is 410,000. Rest of the morning blood work is pending. IMPRESSION: 1. Recent near syncope in setting of severe anemia, likely related to degree of anemia. No evidence of dysrhythmia is documented or symptoms suggestive of such. 2. Status post mitral valve replacement. Echocardiogram reveals evidence of normally functioning mechanical mitral valve with physiologic gradients. 3. Left ventricular function appears mild to moderately reduced with global hypokinesis. Moderate tricuspid regurgitation is present. 4. Status post implantable cardioverter-defibrillator implant with no clinical evidence of recent discharge by history. 5. Rest of problems as noted. RECOMMENDATIONS: From the cardiac standpoint, her current management should continue. [employer] ICD rep was contacted and will perform an interrogation on her device today. Assuming no significant dysrhythmias are noted, no further intervention will be planned. Anemia workup should proceed as planned. Assuming her defibrillator check is unremarkable, from a cardiac standpoint she appears stable, will be discharged today with outpatient followup. Manuel Bejarano MD
[2018-11-05 14:38] VITALS: PULSE 63
--- NOTE | 2018-11-05 15:01 | DS ---
FINAL DIAGNOSES: Near syncope improved, anemia requiring blood cell transfusion, iron-deficiency anemia, history of recent significant nasal epistaxis approximately 1 month ago leading to iron-deficiency anemia, chronic insomnia, history of mitral valve replacement, history of tricuspid valve repair, chronic hypertension, hyperlipidemia, obesity, degenerative arthritis. DISPOSITION: Home. The patient was advised to follow up with her PMD, Vijay Saul, medical doctor within 48 hours. Discharge meds were Ambien 5 mg p.o. at bedtime p.r.n. insomnia, baby aspirin 81 mg p.o. at bedtime, Betapace 120 mg p.o. daily, Coumadin 5 mg p.o. daily, Lipitor 10 mg p.o. daily. SUMMARY: This 53-year-old female was admitted to [facility] with near syncope and significant anemia after a reported significant nosebleed approximately 1 month prior. The patient was seen in cardiac consultation by Dr. Manuel Bejarano, who cleared the patient for discharge after performing a defibrillator check and also echocardiography was performed and showed dilated left atrium, normal left ventricular size, mild concentric left ventricular hypertrophy, normally functioning mechanical mitral valve prosthesis, [id number] systolic dysfunction and moderate tricuspid regurgitation. This report was reviewed by Dr. Manuel Bejarano from Cardiology. The patient was anxious for discharge given that it was her birthday and tolerated blood cell transfusion with a post transfusion of hemoglobin of 9.2 and hematocrit of 30.4. Of note, her iron saturation level was 4% consistent with iron-deficiency anemia, and the patient was advised to take ferrous gluconate 324 mg p.o. 3 times daily and to follow up with her PMD, Dr. Arnaud Saul medical doctor within 48 hours for further management of all of the above issues and completion of GI workup as an outpatient including endoscopy and GI followup regarding iron-deficiency anemia issues. At the time of her discharge, temperature was 97.8, respirations 20, pulse 74 and blood pressure 130/88. The patient was cleared by Dr. Bejarano for discharge to home. He has recommended she follow up with her alliances consultant within the next few days as well. T4 level was normal at 6.9. Hemoglobin was stable at 9.2 with hematocrit of 30.4, and the patient was advised for any change in signs and symptoms to present directly to the [facility] ER. Hopefully, she will be compliant with all the above recommendations which were reviewed with both herself and nurse Ciarra Smith, registered nurse. Vianca Perkins MD MTDFélix
--- NOTE | 2018-11-05 15:10 | HP ---
DATE OF EXAM: 11/03/2018 HISTORY OF PRESENT ILLNESS: This 53-year-old female was examined at her bedside on the cardiac glaser on the evening of 11/03/2018 and this case was reviewed in detail with herself and was reviewed in detail with nurse Green, registered nurse. The patient presented to the [facility] ER and was evaluated by Dr. Javier Albert with whom I have discussed this case. She is 52 years old with a past medical history of mitral valve replacement, surgery as well as tricuspid valve repair with chronic COPD and a pacemaker defibrillator for cardiac arrhythmia in her past on both baby aspirin and Coumadin. On the evening of admission, she complained of generalized weakness, dyspnea, associated lightheadedness and nausea. The patient was admitted for near syncope and is awaiting evaluation by Cardiology and Neurology. MEDICATIONS: She states Ambien, Coumadin, Betapace, baby aspirin, Lipitor, occasional Percocet and Lidoderm for low back pain. ALLERGIES: SHE HAS NO KNOWN ALLERGIES TO MEDICATION. SOCIAL HISTORY: She is a current nondrinker and nonsmoker. FAMILY HISTORY: Significant and that her both parents are alive in their 80s with no evidence of atherosclerotic heart disease. REVIEW OF SYSTEMS: HEAD: No headache or seizure. EYE: No change in visual acuity. EAR: No hearing loss. THROAT: No swallowing difficulty. NECK: No stiffness. CARDIAC: As per HPI. PULMONARY: No cough. No hemoptysis. GI: No vomiting. : No dysuria. SKIN: No rash. VASCULAR: No claudication. NEUROLOGICAL: No knowledge of seizure or stroke. ENDOCRINOLOGIC: She has hyperlipidemia. No knowledge of diabetes. PHYSICAL EXAMINATION: GENERAL: She was in a normal sinus rhythm on cardiac cath technologist. VITAL SIGNS: Temperature of 98, respirations 19, pulse 79, blood pressure 117/79 and pulse ox 99% room air. HEENT: Head; normocephalic and atraumatic. Eyes; no icterus. Ears; clear. Throat; noninjected. NECK: Supple. HEART: S1 and S2. LUNGS: Clear. ABDOMEN: Soft. EXTREMITIES: No edema. SKIN: Without rash. NEUROLOGICAL: Intact. PSYCHOLOGICAL: Alert and oriented x3. VASCULAR: Legs warm to touch. LABORATORY DATA: White count 7300, hemoglobin 8.3, hematocrit 27.6 and platelets 407,000. PT/INR 2.61, therapeutic. Sodium 136, potassium 3.9, chloride 102, bicarb 28, BUN 16, creatinine 0.8, random blood sugar 99, calcium 9.6, magnesium 2.0, bilirubin 0.5, AST 42, ALT 24 and alk phos 115. Troponin less than 0.01. Lipase 185 normal. Urinalysis, negative and trace bacteriuria. Chest x-ray was reviewed, it showed no active disease. EKG was reviewed, it showed normal sinus rhythm. Abdominal pelvic CT was reviewed, it showed no acute pathology in the abdomen or pelvis, an area of small diverticulosis was noted. Head CT was reviewed. It showed no evidence of stroke or intracranial hemorrhage. IMPRESSION: A 53-year-old female with history of mitral and tricuspid valve surgery, hyperlipidemia, defibrillator for cardiac arrhythmia in her past, hyperlipidemia, obesity, now admitted with near syncope. PLAN: Is to maintain this patient on the cardiac unit. She is awaiting Cardiology evaluation with Dr. Manuel Bejarano and Neurological evaluation with Dr. Matt Hernandez. I have discussed medications with the patient and nursing including to continue a baby aspirin, Betapace, Coumadin and Lipitor. She continues on heart-healthy diet and cardiac cath technologist and based on clinical results, additional diagnostic workup will be entertained. Greater than 75 minutes was spent in the care management, review of labs, orders and x-rays. All questions were answered and reviewed with her nurse. Vianca Perkins MD MTDFélix
--- NOTE | 2018-11-06 08:05 | PN ---
DATE: 11/04/2018 SUBJECTIVE: This 53-year-old female was examined on the cardiac glaser at the [facility] on the afternoon of 11/04/2018. This case was reviewed with her nurse, Ciarra Smith, registered nurse. The patient was seen earlier today by Dr. Manuel Bejarano from Cardiology. He is aware the patient is status post blood transfusion and is requesting a followup CBC for the a.m. She will need interrogation of her defibrillator and he recommends anemia workup should proceed. He has ordered an echocardiogram which she will review and states further recommendations will be made based upon review of the above and her clinical course. PHYSICAL EXAMINATION: GENERAL: At the time of my evaluation, the patient was alert and oriented, denying any fever, chills, chest pain or shortness of breath. VITAL SIGNS: She was in sinus rhythm on the air sampling and monitoring with a temperature of 98.6, respirations 20, pulse 89 and blood pressure 123/76 and pulse ox 97% room air. Physical exam remains unchanged. LABORATORY DATA: White count 5700, hemoglobin post transfusion 9.5, hematocrit 30.4, platelets 397,000. PT/INR 2.64, therapeutic. Sodium 139, K 4.1, chloride 105, bicarb 26, BUN 11, creatinine 0.7, random blood sugar 88, calcium 9.2. Bilirubin 0.4, AST 34, ALT 24, alk phos 108. Vitamin B12 level 500. T4 normal at 6.9. Vitamin D level normal at 30.1. Urine culture shows no growth. IMPRESSION: A 53-year-old female with multiple medical problems including history of mitral and tricuspid valve surgery, hyperlipidemia, chronic defibrillator, hyperlipidemia, obesity, admitted with anemia after a significant nosebleed approximately 1 month ago. PLAN: The plan at present is to await 2-D echocardiography results and clearance by Cardiology regarding discharge. I am awaiting her iron studies and she does continue on p.r.n. Ambien, baby aspirin, Betapace, Coumadin 5 mg p.o. daily, Lipitor 10 mg p.o. daily and heart-healthy diet. Based on her clinical progress, additional diagnostic workup will be entertained. The patient is anxious for discharge and states she will follow up with her PMD, Dr. Saul, upon discharge. All questions were answered. Vianca Perkins MD RYLIE
== END 2018-11-05 18:12 | disposition home or self-care (01) ==
LOC: ED 12:59 → ERH 16:10 → INTOOBSV 16:10 → 3RSO 17:27
PROVIDERS: ADMIT Internal Medicine; ATTEND Internal Medicine
DX: D50.9 Iron deficiency anemia, unspecified (principal); E66.9 Obesity, unspecified; J44.9 Chronic obstructive pulmonary disease, unspecified; K21.9 Gastro-esophageal reflux disease without esophagitis; I10 Essential (primary) hypertension; E78.5 Hyperlipidemia, unspecified; I36.1 Nonrheumatic tricuspid (valve) insufficiency; G89.29 Other chronic pain; Z68.36 Body mass index [BMI] 36.0-36.9, adult; Z95.2 Presence of prosthetic heart valve; Z95.810 Presence of automatic (implantable) cardiac defibrillator; Z98.84 Bariatric surgery status; Z79.01 Long term (current) use of anticoagulants; Z90.710 Acquired absence of both cervix and uterus
CPT/HCPCS: 36415; 36430; 70450; 71045; 74177; 80053; 81001; 82306; 82550; 82607; 82728; 83010; 83540; 83550; 83615; 83690; 83735; 83880; 84436; 84484; 84703; 85025; 85027; 85044; 85610; 85730; 86850; 86900; 86920; 87086; 93005; 93306; 96374; 96375; 99285; C9113; G0378; J1885; J2405; J7040; P9016; Q9967

== ENCOUNTER 2018-12-13 13:16 | Inpatient (IN) | payer OTHER ==
[2018-12-13 13:18] VITALS: BMI 36.6
--- NOTE | 2018-12-13 13:46 | ED PDOC ---
Arrival/HPI - General Historian: Patient - History of Present Illness Narrative History of Present Illness (Text): 12/13/18 13:36 This is a 53 year-old F whose past medical history includes mitral valve surgery, COPD, has AICD and is on coumadin, presents to [facility] Emergency Department complaining of R-sided chest pain x1 day. Patient reports chest pain with sudden onset localized to right side that is intermittent and non-radiating. Patient states the pain is "tight" in quality and quantifies the pain as 6/10 in severity. Patient did not attempt to take any medications and denies alleviating factors. Patient reports associated nausea and vomiting (x5 bouts of watery liquid). Patient also reports associated decreased appetite, dizziness, palpitations, fatigue, and right-sided back pain that is stabbing in quality and she rates it a 10/10 in severity. Patient otherwise denies numbness/tingling in lower extremities, diaphoresis, headache, blurred vision, neck pain, recent trauma, diarrhea, sick contacts, and/or recent travel. PMD: Dr. Jenkins ([facility]) Time/Duration: 24 hours Symptom Onset: Sudden Symptom Course: Unchanged Severity Level: 6 <Arturo Esqueda - Last Filed: 12/13/18 15:37> <Nasir Solis - Last Filed: 12/13/18 16:26> - General Chief Complaint: Chest Pain Time Seen by Provider: 12/13/18 13:27 Past Medical History - Provider Review Nursing Documentation Reviewed: Yes - Infectious Disease Hx of Infectious Diseases: None - Tetanus Immunization Tetanus Immunization: Unknown - Cardiac Hx Cardiac Disorders: Yes (Cardiomyopathy) Hx Congestive Heart Failure: Yes Hx Hypertension: Yes - Pulmonary Hx Respiratory Disorders: Yes Hx Asthma: Yes Hx Sleep Apnea: Yes (has not been using home cpap, no snoring after gastric sleeve sx 2013) - Neurological Hx Neurological Disorder: Yes Hx Dizziness: Yes - HEENT Hx HEENT Disorder: Yes (Reading glasses) - Renal Hx Renal Disorder: No - Endocrine/Metabolic Hx Endocrine Disorders: No - Hematological/Oncological Hx Blood Disorders: Yes Other/Comment: BLOOD TRANSFUSION 2008 - Integumentary Hx Dermatological Disorder: No - Musculoskeletal/Rheumatological Hx Musculoskeletal Disorders: Yes Hx Falls: Yes - Gastrointestinal Hx Gastrointestinal Disorders: Yes Hx Gastroesophageal Reflux: Yes - Genitourinary/Gynecological Hx Genitourinary Disorders: No - Psychiatric Hx Psychophysiologic Disorder: No Hx Substance Use: No - Surgical History Hx Gastric Bypass Surgery: Yes (revision 09/2018) Hx Hysterectomy: Yes (2010) Hx Open Heart Surgery: Yes Hx Valve Replacement: Yes Other/Comment: gastric sleeve 2013, pt fell and shattered r ankle 2009 had plate and 16 screws inplanted 10 screws have since been removed - Anesthesia Hx Anesthesia: Yes Hx Anesthesia Reactions: No Hx Malignant Hyperthermia: No - Suicidal Assessment Feels Threatened In Home Enviroment: No <Arturo Esqueda - Last Filed: 12/13/18 15:37> Family/Social History - Physician Review Nursing Documentation Reviewed: Yes Family/Social History: Unknown Family HX Smoking Status: Never Smoked Hx Alcohol Use: No Hx Substance Use: No Hx Substance Use Treatment: No <Arturo Esqueda - Last Filed: 12/13/18 15:37> Allergies/Home Meds <Arturo Esqueda - Last Filed: 12/13/18 15:37> <Nasir Solis - Last Filed: 12/13/18 16:26> Allergies/Adverse Reactions: Allergies No Known Allergies Allergy (Verified 11/03/18 13:11) Review of Systems - Review of Systems Constitutional: Fatigue Eyes: Normal ENT: Normal Respiratory: Normal Cardiovascular: Chest Pain, Palpitations. absent: Edema, Syncope Gastrointestinal: Nausea, Vomiting Genitourinary Female: Normal Musculoskeletal: Back Pain (right thoracic/lumbar) Skin: Normal Neurological: Dizziness Endocrine: Normal Hemo/Lymphatic: Normal Psychiatric: Normal <Arturo Esqueda - Last Filed: 12/13/18 15:37> - Physician Review All systems were reviewed & negative as marked: Yes <Nasir Solis - Last Filed: 12/13/18 16:26> Physical Exam Vital Signs Reviewed: Yes Vital Signs Temp Pulse Resp BP Pulse Ox 12/13/18 13:22 98.0 F 59 L 18 148/96 H 99 Temperature: Afebrile Blood Pressure: Hypertensive Pulse: Regular Respiratory Rate: Normal Appearance: Positive for: Non-Toxic, Uncomfortable Pain Distress: Moderate Mental Status: Positive for: Alert and Oriented X 3 - Systems Exam Head: Present: Atraumatic, Normocephalic Pupils: Present: PERRL Extroacular Muscles: Present: EOMI Conjunctiva: Present: Normal Mouth: Present: Moist Mucous Membranes Neck: Present: Normal Range of Motion Respiratory/Chest: Present: Clear to Auscultation, Good Air Exchange. No: Respiratory Distress, Accessory Muscle Use Cardiovascular: Present: Regular Rate and Rhythm, Normal S1, S2. No: Murmurs Abdomen: Present: Normal Bowel Sounds. No: Tenderness, Distention, Peritoneal Signs Back: Present: Normal Inspection, Paraspinal Tenderness (right-sided ) Upper Extremity: Present: Normal Inspection Lower Extremity: Present: Normal Inspection, NORMAL PULSES. No: Edema Neurological: Present: GCS=15, CN II-XII Intact, Speech Normal Skin: Present: Warm, Dry, Normal Color. No: Rashes <Arturo Esqueda - Last Filed: 12/13/18 15:37> Vital Signs Temp Pulse Resp BP Pulse Ox 12/13/18 13:22 98.0 F 59 L 18 148/96 H 99 - Systems Exam Head: Present: Atraumatic, Normocephalic Pupils: Present: PERRL Extroacular Muscles: Present: EOMI Conjunctiva: Present: Normal Mouth: Present: Moist Mucous Membranes Neck: Present: Normal Range of Motion Respiratory/Chest: Present: Tender to Palpation (Tenderness in her right chest wall, right upper back ) Cardiovascular: Present: Regular Rate and Rhythm, Normal S1, S2. No: Murmurs Abdomen: Present: Normal Bowel Sounds. No: Tenderness, Distention, Peritoneal Signs Back: Present: Normal Inspection Upper Extremity: Present: Normal Inspection. No: Cyanosis, Edema Lower Extremity: Present: Normal Inspection. No: Edema Neurological: Present: GCS=15, CN II-XII Intact, Speech Normal Skin: Present: Warm, Dry, Normal Color. No: Rashes Psychiatric: Present: Alert, Oriented x 3, Normal Insight, Normal Concentration <Nasir Solis - Last Filed: 12/13/18 16:26> Medical Decision Making ED Course and Treatment: 12/13/18 13:56 IMPRESSION This is a 53 year-old F whose past medical history includes mitral valve surgery, COPD, has AICD and is on coumadin, presents to [facility]3] Emergency Department complaining of R-sided chest pain x1 day. ASSESSMENT Chest Pain ACS R/O PLAN - CXR - EKG - Troponin x1 - CBC - CMP - Urinalysis - Lipase - Amylase Medications administered in ED: - ASA 324mg PO - Pepcid 20mg IVP - NS 1L bolus 12/13/18 15:32 Patient is in pain after administration of aspirin and pepcid Morphine 4mg IVP ordered 12/13/18 15:37 CXR: no active disease Lipase w.n.l Troponin negative CBC unremarkable Amylase w.n.l CMP unremarkable <KristinamadouArturo porter - Last Filed: 12/13/18 15:37> ED Course and Treatment: 12/13/18 14:25 Impression: 53 year female presents to the emergency department for right-sided chest pain x1 day. Patient Seen with Resident: In agreement with resident note which contains more details about the patient. Patient seen and evaluated with resident. Came up with plan and treatment together. Differential Diagnosis included but are not limited to: chest pain r/o ACS vs. gastritis vs musculoskeletal Plan: -- Labs -- X-ray of chest -- Ecotrin -- Pepcid -- IV fluids -- Toradol -- Urinalysis -- Reassess and disposition Prior Visits: Notes and results from previous visits were reviewed. Patient was last seen in the emergency department on 11/03/18 for worsening generalized weakness and dyspnea since earlier that day. Pt was hospitalized in stable condition with diagnosis of near syncope and anemia. Progress Notes: 12/13/18 16:24 Patient did not want to take Toradol due to some contraindications to her meds. Morphine IV ordered for pain control. Case discussed with Dr. Perkins who admitted the patient on her last admission. [facility] and to admit to telemetry. - RAD Interpretation Narrative RAD Interpretations (Text): X-ray of chest reviewed by radiologist, shows: Dictated By: Anjel Fu MD Dictated Date/Time: 12/13/18 14:32 Impression: No active disease. Radiology Orders: 12/13/18 13:53 CHEST PORTABLE [RAD] Stat Edge Polisher: Radiologist - EKG Interpretation EKG Interpretation (Text): 12/13/18 EKG: Ordered, reviewed, and independently interpreted the EKG. Rate : 60 BPM Rhythm : NSR Interpretation : No ST-segment elevations or depressions, T-wave inversions in V1, normal intervals. Comparison : No change from previous EKG Interpreted by ED Physician: Yes Type: 12 lead EKG - Medication Orders Current Medication Orders: Sodium Chloride (Sodium Chloride 0.9%) 1,000 mls @ 999 mls/hr IV .Q1H1M STA Stop: 12/13/18 14:54 Discontinued Medications Aspirin (Ecotrin) 324 mg PO STAT STA Stop: 12/13/18 13:53 Famotidine (Pepcid) 20 mg IVP STAT STA Stop: 12/13/18 13:54 Ketorolac Tromethamine (Toradol) 30 mg IVP STAT STA Stop: 12/13/18 13:56 <Nasir Solis - Last Filed: 12/13/18 16:26> - Scribe Statement The provider has reviewed the documentation as recorded by the Scribe Brigitte Weir All medical record entries made by the Scribe were at my direction and personally dictated by me. I have reviewed the chart and agree that the record accurately reflects my personal performance of the history, physical exam, medical decision making, and the department course for this patient. I have also personally directed, reviewed, and agree with the discharge instructions and disposition. <Nasir Solis - Last Filed: 12/13/18 16:26> Disposition/Present on Arrival - Present on Arrival Any Indicators Present on Arrival: No History of DVT/PE: No History of Uncontrolled Diabetes: No Urinary Catheter: No History of Decub. Ulcer: No History Surgical Site Infection Following: None <Artuor Esqueda - Last Filed: 12/13/18 15:37> - Disposition Have Diagnosis and Disposition been Completed?: Yes Disposition Time: 15:45 Patient Plan: Observation <Nasir Solis - Last Filed: 12/13/18 16:26> - Disposition Diagnosis: Chest pain Condition: GUARDED Discharge Instructions (ExitCare): Chest Pain (ED) Referrals: Carl Saul MD [Primary Care Provider] - Follow up with primary Forms: [employer] ([place])
[2018-12-13] MEDS ORDERED: Sodium Chloride 0.9% 1,000 ML IV STA (13:54)
--- NOTE | 2018-12-13 14:36 | RAD ---
Date of service: 12/13/2018 HISTORY: chest pain COMPARISON: 01/04/2018 FINDINGS: LUNGS: No active pulmonary disease. PLEURA: No significant pleural effusion identified, no pneumothorax apparent. CARDIOVASCULAR: No aortic atherosclerotic calcification present. Mild cardiomegaly single lead pacemaker OSSEOUS STRUCTURES: Sternal wires VISUALIZED UPPER ABDOMEN: Normal. OTHER FINDINGS: None. IMPRESSION: No active disease.
[2018-12-13 14:59] LABS: BASO # 0.04 K/mm3 (0.0-2.0); BASO % 0.4 % (0.0-3.0); EOS # 0.2 (0.0-0.7); EOS % 2.6 % (1.5-5.0); GRAN # 5.92 (1.4-6.5); GRAN % 64.2 % (50.0-68.0); HEMOGLOBIN 9.5 g/dL (12.0-16.0); LYMPH # 2.3 (1.2-3.4); LYMPH % 25.3 % (22.0-35.0); MEAN CELL VOLUME 74.2 fl (80.0-105.0); MEAN CORPUSCULAR HEMOGLOBIN 21.9 pg (25.0-35.0); MEAN CORPUSCULAR HGB CONC 29.5 g/dl (31.0-37.0); MEAN PLATELET VOLUME 11.3 fl (7.0-11.0); MONO # 0.7 (0.1-0.6); MONO % 7.5 % (1.0-6.0); RBC 4.34 10^6/uL (3.5-6.1); RED CELL DISTRIBUTION WIDTH 18.8 % (11.5-14.5); WHITE BLOOD COUNT 9.2 10^3/uL (4.5-11.0)
[2018-12-13 15:04] LABS: INR 1.32; PROTHROMBIN TIME 14.6 SECONDS (9.4-12.5)
[2018-12-13 15:06] LABS: ALB/GLOB RATIO 1.3 (1.1-1.8); ALBUMIN 4.3 g/dL (3.0-4.8); ALT/SGPT 36 U/L (7-56); AMYLASE 133 U/L (35-125); AST/SGOT 38 U/L (14-36); BLOOD UREA NITROGEN 12 mg/dL (7-21); CALCIUM 9.3 mg/dL (8.4-10.5); GFR NON-AFRICAN AMERICAN > 60; LIPASE 200 U/L (23-300)
[2018-12-13 15:17] LABS: TROPONIN I < 0.01 ng/mL
[2018-12-13] MEDS ORDERED: Morphine 4 mg/ml ISec IVP STA ×2 (15:31→18:07)
[2018-12-13 17:48] LABS: URINE BILIRUBIN NEGATIVE (NEGATIVE); URINE BLOOD NEGATIVE (NEGATIVE); URINE GLUCOSE (UA) NEGATIVE (NEGATIVE); URINE LEUKOCYTE ESTERASE NEGATIVE Leu/uL (NEGATIVE); URINE PROTEIN NEGATIVE mg/dL (<30 mg/dL); URINE UROBILINOGEN 0.2 E.U./dL (<1 E.U./dL)
[2018-12-13 18:00] LABS: URINE APPEARANCE CLEAR (CLEAR); URINE COLOR YELLOW (YELLOW)
[2018-12-13] MEDS ORDERED: Pneumococcal 23-Valent Vaccine IM ONE (22:58)
[2018-12-13] MEDS ORDERED: Influenza Vaccine 60 mcg/0.5 mL SYR (4YR UP) IM ONE (22:58)
--- NOTE | 2018-12-13 23:01 | CARD ---
APPROVED REPORT Date of service: 12/13/2018 EKG Measurement Heart [id number] <Conclusion> Normal sinus rhythm Slow R wave progression V1-3. Minor NDSTT abnormalities on the anterior precordial leads. Abnormal ECG
[2018-12-14] MEDS ORDERED: Morphine 2 mg/ml ISec IVP STA ×2 (10:28→22:06)
[2018-12-14] MEDS ORDERED: Barium Sulfate Susp 2.1% w/v, 2.0% w/w 450 mL Bottle PO ONE (10:36)
--- NOTE | 2018-12-14 14:03 | CON ---
DATE: 12/14/2018 REQUESTING PHYSICIAN: Vianca Perkins MD REASON FOR CONSULTATION: Chest pain. HISTORY: This is a 53-year-old woman known to us from prior admissions who has a history of prior mitral valve replacement and severe LV dysfunction as well as a defibrillator implant, who presents to the emergency room complaining of right-sided chest and back pain, which she describes as a sharp stabbing sensation. While in the emergency room, she complained of retrosternal chest tightness as well and was admitted. She apparently has been having nausea and vomiting for several days as well. At the time of her surgery for valve replacement, she reportedly had normal coronary arteries and apparently underwent cardiac catheterization approximately 2 years ago and was again found to have no significant coronary disease. She is currently sitting in chair on telemetry and complains of intermittent back pain with deep inspiration. She does have a history of left ventricular dysfunction. She does have sleep apnea. She underwent bariatric surgery with a gastric sleeve in 2013 and subsequent revision. She has a history of gastroesophageal reflux disease, prior ankle fracture requiring surgery. CURRENT MEDICATIONS: Include sotalol 120 mg daily, warfarin 5 mg daily and iron supplement. ALLERGIES: NONE. SOCIAL HISTORY: She does not smoke. She denies alcohol use. FAMILY HISTORY: Unremarkable for premature heart disease. REVIEW OF SYSTEMS: A 10-point review of systems is notable mainly for problems mentioned above. PHYSICAL EXAMINATION: GENERAL: She is a anxious-appearing, middle-aged woman. VITAL SIGNS: Her blood pressure is 156/90 with a pulse of 70 and sinus, occasional PVCs noted, respirations are 16. She is afebrile. HEENT: Normocephalic, atraumatic. NECK: Supple. No JVD noted. CHEST: Few scattered rhonchi heard. HEART: PMI displaced laterally with soft tones noted. Systolic murmur is noted at the lower left sternal border. ABDOMEN: Soft and nontender with normoactive bowel sounds. EXTREMITIES: No edema. SKIN: Warm and dry. PSYCHIATRIC: Normal mood and affect. NEUROLOGIC: Alert and oriented x3. No gross motor or sensory deficits appreciable. DIAGNOSTIC DATA: White count is 9.2, hemoglobin and hematocrit 9.5 and 32.2 with an MCV of 74. Platelet count is 405,000. INR is 1.32, potassium 4.4. BUN and creatinine 12 and 0.6. Electrocardiogram reveals sinus rhythm with nonspecific ST-T abnormalities. Chest x-ray reveals increased cardiac silhouette. A defibrillator system is noted in place. IMPRESSION: 1. Chest and back pain, doubt cardiac ischemia. Given prior history of normal coronary arteries on recent catheterization, some aspects of her pains are more consistent with neuropathic cause. She may also have some significant worsening gastroesophageal reflux disease. 2. Known left ventricular dysfunction, status post ICD implant. 3. Mitral valve disease status post replacement. RECOMMENDATIONS: Her current medications should be continued for now. A workup for GI and neuropathic pain should be considered. She does have a mechanical mitral valve prosthesis and an INR of 2.5-3.5 is appropriate. Intensified Coumadin therapy is recommended at this time. Assuming her cardiac enzymes are negative, I would not pursue additional evaluation for ischemic heart disease at this time. Her sotalol should be increased to twice daily dosing, which would be appropriate. With her subtherapeutic INR, I would advise that she be given a dose-adjusted Lovenox until her INR is greater than 2.5. Thank you for this consultation. I will be happy to follow along as needed. Manuel Bejarano MD
[2018-12-14] MEDS: Famotidine 20mg/50ml 20 MG/50 ML BAG IVPB SCH ×2 (14:09→23:15)
[2018-12-14] MEDS: Enoxaparin 80 mg Syringe SC SCH ×2 (14:25→18:32)
--- NOTE | 2018-12-14 15:37 | CT ---
Date of service: 12/14/2018 PROCEDURE: CT Abdomen and Pelvis with contrast HISTORY: Abdominal pain COMPARISON: Comparison made with prior study dated 11/03/18. TECHNIQUE: Contiguous helical/transaxial sections of the abdomen pelvis performed without following oral contrast material. IV contrast not injected per request. Study is therefore somewhat limited. Comparison made with prior additional 2D sagittal and coronal reformats generated. Radiation dose: Total exam DLP = 1015.49 mGy-cm. This CT exam was performed using one or more of the following dose reduction techniques: Automated exposure control, adjustment of the mA and/or kV according to patient size, and/or use of iterative reconstruction technique. FINDINGS: LOWER THORAX: Heart size is mildly enlarged. No significant pericardial effusion.. There is a small hiatal hernia with what appears represent small amount of layering fluid suggesting reflux. Clinical correlation recommended. There are mild scarring changes seen in the right lung base/middle lobe region. There is a small hernia. Tiny linear density seen just beneath the right posterior hemidiaphragm likely representing a metallic cholecystectomy clip. LIVER: Liver exhibits normal size and attenuation pattern. No obvious hepatic mass collection or calcification. GALLBLADDER AND BILE DUCTS: Cholecystectomy. PANCREAS: Unremarkable. No gross lesion or ductal dilatation. SPLEEN: Unremarkable. ADRENALS: Unremarkable. No mass. KIDNEYS AND URETERS: Unremarkable. No hydronephrosis. No solid mass. VASCULATURE: Unremarkable. No aortic aneurysm. No aortic atherosclerotic calcification or mural plaque present. BOWEL: Evaluation of the bowel is somewhat limited due to the lack of oral contrast material. The stomach is incompletely distended. Apparent postoperative changes of gastric sleeve procedure. Visualized loops of small bowel exhibit normal contour and caliber. No evidence of acute mechanical small bowel obstruction. Stool and air seen throughout the large bowel. Scattered colonic diverticula seen along the sigmoid colon and to a lesser degree distal descending colon junction. APPENDIX: Normal appendix. PERITONEUM: Unremarkable. No free fluid. No free air. Gross free intraperitoneal air. No free or loculated fluid collections LYMPH NODES: Unremarkable. No enlarged lymph nodes. BLADDER: The urinary bladder is incompletely distended which in part accounts for thick-walled appearance. Rule out cystitis therefore correlation with urinalysis recommended. REPRODUCTIVE: Hysterectomy. BONES: The osseous structures appear intact however minor multilevel degenerative spondylosis of the lower thoracic or lumbar spine. OTHER FINDINGS: None. IMPRESSION: Cholecystectomy. Hysterectomy. Postoperative changes of gastric sleeve.. Diverticulosis without radiographic evidence of acute diverticulitis. No acute intra abdominal pathology.
--- NOTE | 2018-12-14 15:44 | HP ---
DATE OF EXAM: 12/14/2018 HISTORY OF PRESENT ILLNESS: This 53-year-old female was examined at her bedside on the cardiac unit at the [facility] on the morning of November. Present for the interview was nurse Aleshia Almaraz, registered nurse. The patient was admitted with substernal chest pressure as well as severe abdominal pain. This morning she complained of nausea, vomiting that required parenteral morphine for pain control. PAST MEDICAL HISTORY: Is extensive and includes history of ventricular tachycardia status post implantable defibrillator and history of severe iron-deficiency anemia for which she has been unable to complete an outpatient colonoscopy to this date. She has comorbidities of gastric sleeve performed in [facility] in 2014 and a gastric sleeve revision done at the [facility], in [place] in September 2018. Status post her most recent gastric sleeve revision she has been plagued with problems with nausea, vomiting, obstipation and inability to eat much more than ice and crackers and occasional potato chips. She follows with a customer support executive by the name of Dr. Jorge. Did complete an endoscopy which she was told was unremarkable, but was unable to complete a colonoscopy for what sounds like the tortuous colon. At present. She was admitted to my service in October 2018 with severe iron-deficiency anemia, at which time she was noted to have a hemoglobin of 8.3 and received blood cell transfusion. According to the patient, who showed me laboratories, she did have a hemoglobin of 10 with hematocrit of 33.4 after discharge and now complains of fatigue and weakness with her hemoglobin being 9.5 and 32.2, MCV is 74.2 and the patient is concerned that she is having occult GI bleeding. The patient came to the emergency room yesterday with what she describes as 5/10 substernal chest pressure and also complained of severe abdominal pain today requiring an abdominal pelvic CT that is pending at present. OUTPATIENT MEDICATIONS: Include Ambien, Betapace, Coumadin and Fergon. ALLERGIES: SHE HAS NO KNOWN ALLERGIES TO MEDICATION. SOCIAL HISTORY: She is a nondrinker, nonsmoker and non IV drug misuser. FAMILY HISTORY: Noncontributory. REVIEW OF SYSTEMS: CONSTITUTIONAL: She denied fever and chills. HEAD: No headache or seizures. EYES: No change in visual acuity. EARS: No hearing loss. THROAT: No swallowing difficulty. NECK: No stiffness. CARDIAC: As per HPI. PULMONARY: No cough. No hemoptysis. GI: Difficulty eating, obstipation, iron-deficiency anemia and no successful colonoscopy to date. VASCULAR: No claudication. PSYCHOLOGICAL: Chronic anxiety. NEUROLOGICAL: No stroke. ENDOCRINOLOGIC: No knowledge of diabetes mellitus. Family history is noncontributory. PHYSICAL EXAMINATION: VITAL SIGNS: At the present time, she was in normal sinus rhythm on the equipment monitor phototypesetting with temperature of 97.8, respirations 18, pulse 71 and blood pressure 157/96 with a pulse ox of 98% room air. HEENT: Head normocephalic and atraumatic. Eyes: No icterus. Ears: Clear. Throat: Noninjected. NECK: Supple. HEART: S1 and S2. LUNGS: Clear. ABDOMEN: Obese and nontender. No rebound. No guarding. No tenderness. There was some mild midepigastric discomfort on palpation. No CVA tenderness. EXTREMITIES: No edema. SKIN: Without rash. NEUROLOGICAL: Intact. PSYCHOLOGICAL: Anxious. VASCULAR: Legs warm to touch. LABORATORY DATA: White count 9200, hemoglobin 9.5, hematocrit 32.2, MCV 74.2 and platelets 405,000. PT/INR is subtherapeutic at 1.32. Sodium 138, potassium 4.4, chloride 105, bicarb 26, BUN 12, creatinine 0.6, random blood sugar 77, calcium 9.3, bilirubin 0.3, AST 38, ALT 36 and alk phos 112. Troponin less than 0.01. Amylase elevated at 133 with a lipase of 200. Urinalysis was unremarkable. EKG was reviewed, it showed normal sinus rhythm with nonspecific ST-T wave changes. Chest x-ray was reviewed, it showed no active pulmonary disease, no effusion, no CHF, no infiltrate. IMPRESSION: This is a 53-year-old female with substernal chest pressure, rule out atherosclerotic heart disease and unstable angina, also with abdominal pain, nausea and vomiting in the setting of gastric sleeve revision since when the patient cannot eat or drink a normal diet and also has a worsening iron-deficiency anemia despite taking iron supplementation and has not yet had a successful colonoscopy to date. PLAN: At present is to continue Ambien, Betapace, Coumadin and Fergon. I have ordered a stat abdominal pelvic CT with oral contrast. She is ordered to have a heart-healthy diet as tolerated and consultations with Dr. Manuel Bejarano from Cardiology and Dr. Pedro Luis Newby from GI are pending. The patient was given a stat dose of morphine for pain control. She is quite concerned regarding all of the issues as listed above and will require inpatient certification until cleared by consultants from Cardiology and Gastroenterology. Greater than 75 minutes was spent in the care management, outlining of orders, testings and discussion of this patient with herself and nursing. All questions were answered. Vianca Perkins MD MTDD
[2018-12-14 17:12] LABS: INR 1.59; PROTHROMBIN TIME 17.7 SECONDS (9.4-12.5)
[2018-12-15] MEDS: Enoxaparin 80 mg Syringe SC SCH ×2 (06:47→12:08)
[2018-12-15 07:14] LABS: HEMOGLOBIN 9.1 g/dL (12.0-16.0); MEAN CELL VOLUME 73.9 fl (80.0-105.0); MEAN CORPUSCULAR HEMOGLOBIN 21.6 pg (25.0-35.0); MEAN CORPUSCULAR HGB CONC 29.2 g/dl (31.0-37.0); RBC 4.22 10^6/uL (3.5-6.1); RED CELL DISTRIBUTION WIDTH 18.9 % (11.5-14.5); WHITE BLOOD COUNT 6.9 10^3/uL (4.5-11.0)
[2018-12-15 07:24] LABS: INR 1.76; PROTHROMBIN TIME 19.9 SECONDS (9.4-12.5)
[2018-12-15 07:42] LABS: BLOOD UREA NITROGEN 8 mg/dL (7-21); CALCIUM 9.5 mg/dL (8.4-10.5); GFR NON-AFRICAN AMERICAN > 60
--- NOTE | 2018-12-15 08:19 | CP.PCM.CON ---
<Usman Castellon - Last Filed: 12/15/18 15:02> History of Present Illness - History of Present Illness History of Present Illness: GI Consult Note for Dr. Newby Reason for Consultation: Iron Deficiency Anemia and Poor PO intake Patient is a 53 yo F with PMH of rheumatic heart disease requiring mechanical mitral valve replacement on comadin, tricuspid valve repair, ventricular tachycardia s/p AICD, CHFrEF, diverticulosis, and obesity presents to [facility] due to chest pain/pressure and right back pain. Patient states that pain has since resolved. Patient was evaluated by cardiology and stated that cardiac ischemia is unlikely. GI was consulted for history of iron deficiency anemia and beni sea/vomiting. Patient states that since her gastric sleeve revision in 09/2018 she has had persistent nausea and vomiting and has been unable to consistently tolerate liquids and solids. Patient states that she can only tolerating eating ice. Patient states she feels tired and weak all of the time since the surgery. Review of chart shows lab work consistent with iron deficiency anemia in 10/2018. Patient had upper endoscopy in 10/2018, which showed a hiatal hernia, but no active bleeding. Patient was unable to tolerate bowel prep for colonoscopy and thus was unable to undergo the procedure. The last colonoscopy performed was 05/12/2018, which showed severe diverticulosis and adhesions of the distal sigmoid. Currently, patient denies CP, SOB, n/v/d, abdominal pain, fever, chills, HILL, dizziness, or dysuria. PMH: as above Surg: Mechanical mitral valve replacement, tricuspid valve repair, gastric sleeve (2014, revision 2018), right ankle fracture repair, total abdominal hysterectomy, AICD, cholecystectomy, loop recorder placement, All: NKDA SH: Denied tobacco, EtOH, and illicit drug use FHx: Sister (CAD), Grandmother (leukemia), Aunt (Breast CA), Son (Colon CA) Medications: Dulcolax, Coumadin, Sotalol, Fergon, Ambien Review of Systems - Review of Systems All systems: reviewed and no additional remarkable complaints except (12 point ROS reviewed and is negative other than what is stated in HPI.) Past Patient History - Infectious Disease Hx of Infectious Diseases: None - Tetanus Immunizations Tetanus Immunization: Unknown - Past Social History Smoking Status: Never Smoked - CARDIAC Hx Cardiac Disorders: Yes (Cardiomyopathy,CAD,H/O MITRAL VALVE REPAIR) Hx Congestive Heart Failure: Yes Hx Hypertension: Yes (LAST CHECKED OCT 2018) Hx Peripheral Edema: Yes - PULMONARY Hx Respiratory Disorders: Yes Hx Asthma: Yes Hx Chronic Obstructive Pulmonary Disease (COPD): Yes Hx Sleep Apnea: Yes (has not been using home cpap, no snoring after gastric sleeve sx 2013) - NEUROLOGICAL Hx Neurological Disorder: Yes Hx Dizziness: Yes - HEENT Hx HEENT Problems: Yes (Reading glasses) - RENAL Hx Chronic Kidney Disease: No - ENDOCRINE/METABOLIC Hx Endocrine Disorders: No - HEMATOLOGICAL/ONCOLOGICAL Hx Blood Disorders: Yes Other/Comment: BLOOD TRANSFUSION 2008 - INTEGUMENTARY Hx Dermatological Problems: No - MUSCULOSKELETAL/RHEUMATOLOGICAL Hx Musculoskeletal Disorders: Yes (SCIATICA) Hx Back Pain: Yes Hx Falls: Yes - GASTROINTESTINAL Hx Gastrointestinal Disorders: Yes (COLITIS,UNABLE TO TOLERATE LIQUIDS AND SOME FOOD.) Hx Gastroesophageal Reflux: Yes Other/Comment: GASTRIC SLEEV,GASTRIC BYPASS SX WITH REVISION. 10-08 - GENITOURINARY/GYNECOLOGICAL Hx Genitourinary Disorders: Yes Hx Urinary Tract Infection: Yes - PSYCHIATRIC Hx Psychophysiologic Disorder: No Hx Substance Use: No - SURGICAL HISTORY Hx Surgeries: Yes Hx Gastric Bypass Surgery: Yes (revision 09/2018) Hx Hysterectomy: Yes (2010) Hx Open Heart Surgery: Yes Hx Valve Replacement: Yes Other/Comment: gastric sleeve 2013, pt fell and shattered r ankle 2009 had plate and 16 screws inplanted 10 screws have since been removed - ANESTHESIA Hx Anesthesia: Yes Hx Anesthesia Reactions: No Hx Malignant Hyperthermia: No Meds Allergies/Adverse Reactions: Allergies Allergy/AdvReac Type Severity Reaction Status Date / Time No Known Allergies Allergy Verified 12/13/18 21:46 - Medications Medications: Current Medications Enoxaparin Sodium (Lovenox) 80 mg SC Q12H ALYSA; Protocol Last Admin: 12/15/18 06:47 Dose: 80 mg Ferrous Gluconate (Fergon) 324 mg PO TID ALYSA Last Admin: 12/14/18 23:14 Dose: 324 mg Famotidine (Pepcid 20mg/50ml Premix) 20 mg in 50 mls @ 100 mls/hr IVPB Q12 ALYSA Last Admin: 12/14/18 23:15 Dose: 100 mls/hr Ondansetron HCl (Zofran Inj) 4 mg IVP Q6H PRN PRN Reason: Nausea/Vomiting Last Admin: 12/14/18 23:13 Dose: 4 mg Sotalol HCl (Betapace) 120 mg PO DAILY ALYSA Last Admin: 12/14/18 11:41 Dose: 120 mg Warfarin Sodium (Coumadin) 10 mg PO 1800 ALYSA; Protocol Last Admin: 12/14/18 18:32 Dose: 10 mg Zolpidem Tartrate (Ambien) 5 mg PO HS PRN; Protocol PRN Reason: Insomnia Physical Exam - Constitutional Appears: No Acute Distress - Head Exam Head Exam: NORMAL INSPECTION - Eye Exam Eye Exam: Normal appearance Pupil Exam: NORMAL ACCOMODATION - ENT Exam ENT Exam: Mucous Membranes Moist, Normal Exam - Neck Exam Neck exam: Positive for: Normal Inspection - Respiratory Exam Respiratory Exam: Clear to Auscultation Bilateral. absent: Rales, Rhonchi, Wheezes - Cardiovascular Exam Cardiovascular Exam: +S1, +S2, Systolic Murmur (right sternal border, displaced PMI). absent: Gallop, Rubs - GI/Abdominal Exam GI & Abdominal Exam: Soft. absent: Distended, Guarding, Rebound, Tenderness - Extremities Exam Extremities exam: Positive for: normal inspection - Back Exam Back exam: NORMAL INSPECTION - Neurological Exam Neurological exam: Alert, CN II-XII Intact, Oriented x3 - Skin Skin Exam: Normal Color, Warm Results - Vital Signs Recent Vital Signs: Last Vital Signs Temp 98.6 F 12/15/18 06:00 Pulse 82 12/15/18 06:00 Resp 20 12/15/18 06:00 BP 112/69 12/15/18 06:00 Pulse Ox 99 12/15/18 06:00 - Labs Result Diagrams: 12/15/18 07:00 12/15/18 07:00 Labs: Laboratory Results - last 24 hr 12/14/18 12/15/18 12/15/18 16:51 07:00 07:00 WBC 6.9 D RBC 4.22 Hgb 9.1 L Hct 31.2 L MCV 73.9 L MCH 21.6 L MCHC 29.2 L RDW 18.9 H Plt Count 337 MPV 11.0 PT 17.7 H INR 1.59 Sodium 140 Potassium 3.9 Chloride 105 Carbon Dioxide 30 Anion Gap 8 L BUN 8 Creatinine 0.8 Est GFR ( Amer) > 60 Est GFR (Non-Af Amer) > 60 Random Glucose 73 Calcium 9.5 12/15/18 07:00 WBC RBC Hgb Hct MCV MCH MCHC RDW Plt Count MPV PT 19.9 H INR 1.76 Sodium Potassium Chloride Carbon Dioxide Anion Gap BUN Creatinine Est GFR ( Amer) Est GFR (Non-Af Amer) Random Glucose Calcium Assessment & Plan - Assessment and Plan (Free Text) Assessment: 53 yo F with PMH of rheumatic heart disease requiring mechanical mitral valve replacement on comadin, tricuspid valve repair, ventricular tachycardia s/p AICD, CHFrEF, diverticulosis, and obesity presents to [facility] for atypical chest pain. Patient was evaluated by drilling field operator, who stated that pain is unlikely due to cardiac ischemia. GI consulted for iron deficiency anemia and poor PO intake. Iron studies reviewed from 10/2018 consistent with iron deficiency anemia. Patient was placed on PO iron, but with inappropriate hemoglobin r esponse. 1. Atypical Chest Pain possibly 2/2 GERD 2. Iron deficiency anemia 3. H/o sleeve gastrectomy 4. H/o mechanical mitral valve Plan: - Abdomen Duplex, r/o portal vein thrombosis - Will obtain EGD and colonoscopy records from [facility] - Plan for EGD/Colonoscopy on Tuesday - Hold Coumadin - CLD Patient seen and discussed in detail with Dr. Newby. Ze Castellon DO PGY2 <Pedro Luis Newby V - Last Filed: 12/15/18 22:32> Meds - Medications Medications: Current Medications Enoxaparin Sodium (Lovenox) 80 mg SC Q12H ALYSA; Protocol Last Admin: 12/15/18 12:08 Dose: 80 mg Ferrous Gluconate (Fergon) 324 mg PO TID [facility] Last Admin: 12/15/18 17:35 Dose: 324 mg Famotidine (Pepcid 20mg/50ml Premix) 20 mg in 50 mls @ 100 mls/hr IVPB Q12 ALYSA Last Admin: 12/15/18 09:53 Dose: 100 mls/hr Ondansetron HCl (Zofran Inj) 4 mg IVP Q6H PRN PRN Reason: Nausea/Vomiting Last Admin: 12/14/18 23:13 Dose: 4 mg Sotalol HCl (Betapace) 120 mg PO DAILY ALYSA Last Admin: 12/15/18 09:51 Dose: 120 mg Warfarin Sodium (Coumadin) 10 mg PO 1800 ALYSA; Protocol Zolpidem Tartrate (Ambien) 5 mg PO HS PRN; Protocol PRN Reason: Insomnia Results - Vital Signs Recent Vital Signs: Last Vital Signs Temp 97.8 F 12/15/18 17:51 Pulse 64 12/15/18 17:59 Resp 20 12/15/18 17:51 BP 110/70 12/15/18 12:00 Pulse Ox 99 12/15/18 06:00 - Labs Result Diagrams: 12/15/18 07:00 12/15/18 07:00 Labs: Laboratory Results - last 24 hr 12/15/18 12/15/18 12/15/18 07:00 07:00 07:00 WBC 6.9 D RBC 4.22 Hgb 9.1 L Hct 31.2 L MCV 73.9 L MCH 21.6 L MCHC 29.2 L RDW 18.9 H Plt Count 337 MPV 11.0 Differential Comment PT 19.9 H INR 1.76 Sodium 140 Potassium 3.9 Chloride 105 Carbon Dioxide 30 Anion Gap 8 L BUN 8 Creatinine 0.8 Est GFR ( Amer) > 60 Est GFR (Non-Af Amer) > 60 Random Glucose 73 Calcium 9.5 Attending/Attestation - Attestation I have personally seen and examined this patient.: Yes I have fully participated in the care of the patient.: Yes I have reviewed all pertinent clinical information: Yes Notes (Text): This is an addendum to GI consult report dictated by the GI Fellow.The patient was seen and examined earlier. Medical records, lab studies, imagings were reviewed. Last 24 hours events reviewed. Agreed with the above treatment plan as outlined in GI Fellow 's notes with the addition of the following dicussed with patient awaiting for endo reports from [facility] Clear liquid diet on lovenox 12/15/18 22:27
[2018-12-15] MEDS: Famotidine 20mg/50ml 20 MG/50 ML BAG IVPB SCH ×2 (09:53→22:19)
--- NOTE | 2018-12-15 13:10 | PN ---
DATE: 12/15/2018 SUBJECTIVE: This 53-year-old female was examined at her bedside on the morning of 12/15/2018 in the presence of her nurse, Alexandra Mello, registered nurse. The patient has had persistent abdominal pain requiring IV morphine and IV Pepcid. She is being treated with vomiting with IV Zofran. She has only been cleared for clear liquids by Dr. Pedro Luis Newby from GI and she did undergo a CT of the abdomen that showed no evidence of small bowel obstruction but the presence of a gastric sleeve, hiatal hernia, and diverticulosis. The patient was also seen by Dr. Manuel Bejarano, who concurs with her current cardiac medication including Coumadin, Betapace and now Lovenox in the setting of a subtherapeutic PT/INR and Betapace has been suggested to be increased to twice daily as tolerated. PHYSICAL EXAMINATION: VITAL SIGNS: At present, the patient remains in sinus rhythm on the nail machine operator with temperature 98.6, respirations 20, pulse 67 and blood pressure 112/69 and a pulse ox of 99%. HEENT: Head: Normocephalic, atraumatic. Eyes: No icterus. Ears: Clear. Throat: Noninjected. NECK: Supple. HEART: S1, S2. LUNGS: Clear. ABDOMEN: Soft. Mild tenderness throughout all four quadrants. No rebound, no guarding. EXTREMITIES: No edema. SKIN: Without rash. NEUROLOGICAL: Deconditioned. VASCULAR: Legs warm to touch. PSYCHOLOGICAL: Chronic anxiety. LABORATORY DATA: White count 6900; hemoglobin 9.1, previously 9.5; hematocrit 31.2; MCV 73.9; platelets 337,000. PT/INR 1.76. Sodium 140, K 3.9, chloride 105, bicarb 30, BUN 8, creatinine 0.8, random blood sugar 73. IMPRESSION: A 53-year-old female with abdominal pain of unclear etiology with history of gastric sleeve repair, obesity, chronic insomnia, history of ventricular tachycardia with implantable defibrillator, history of Coumadin for chronic anticoagulation in the setting of cardiomyopathy, iron-deficiency anemia with subtherapeutic PT/INR, and peptic ulcer disease with gastroesophageal reflux disease. PLAN: The plan at present is to continue Zofran, IV Pepcid, subcu Lovenox, oral iron, Coumadin, Betapace, Ambien. She continues on clear liquid diet. She is scheduled to have repeat PT/INR. Diet will not be advanced until cleared by Dr. Pedro Luis Newby from GI. The patient is not cleared for discharge to home given persistence of nausea, vomiting, and inability to tolerate anything more than clear liquids at present. Hospital workup will be determined by co-consultants this was discussed for greater than 35 minutes with the patient at bedside in the presence of nurse, Alexandra Mello, registered nurse. Vianca Perkins MD MTDD
--- NOTE | 2018-12-15 13:57 | PN ---
DATE: 12/15/2018 SUBJECTIVE: The patient is seen sitting in bed on telemetry. She feels somewhat better. She has had no recurrent chest pain. A CT of the chest and abdomen was performed yesterday with results pending. Her INR this morning is 1.76. She remains on Lovenox while her INR is below therapeutic range. CURRENT MEDICATIONS: Include sotalol 120 mg daily, Lovenox 80 mg every 12 hours, Pepcid and warfarin. PHYSICAL EXAMINATION GENERAL: She is a overweight middle-aged woman. VITAL SIGNS: Blood pressure is 112/70 with pulse of 80 in sinus, respirations 16 and she is afebrile. HEENT: No JVD. CHEST: Few scattered rhonchi heard. HEART: [place] valve sounds noted. ABDOMEN: Soft, obese and nontender with normoactive bowel sounds. EXTREMITIES: No edema. DIAGNOSTIC DATA: Potassium 3.9, BUN and creatinine 8 and 0.8. White count 6.9, hemoglobin and hematocrit 9.1 and 31.2 with an MCV of 73.9 and platelet count 337,000. IMPRESSION: 1. Recent chest and back pain, appears noncardiac in nature. 2. Mitral valve disease status post mechanical mitral valve replacement with subtherapeutic INR. 3. Hyperchromic microcytic anemia, unclear if prior workup has been performed. 4. Paroxysmal atrial fibrillation, remains on once daily sotalol which is an unusual dosing recommendation as it is usually taken bid. Lovenox will be continued until the INR is greater than 2.5. Therapeutic range is 2.5 to 3.5. Results of her CT scan will be checked. It should be verified with the primary casting inspector as to whether her sotalol dose is appropriate or should be increased to b.i.d. We will continue to follow and make further recommendations as appropriate. Manuel Bejarano MD MTDD
[2018-12-16 07:11] LABS: INR 2.18; PROTHROMBIN TIME 24.6 SECONDS (9.4-12.5)
--- NOTE | 2018-12-16 09:01 | PN ---
DATE: 12/16/2018 SUBJECTIVE: The patient is seen lying in bed on telemetry. She feels better. Plan is being made for colonoscopy on Tuesday to evaluate her progressive microcytic anemia. Her current medications include sotalol 120 mg daily, warfarin on hold, iron supplement, Lovenox, Pepcid and Zofran. OBJECTIVE: GENERAL: She is a middle-aged woman who is comfortable at the present time. VITAL SIGNS: Blood pressure is 105/76 with pulse 60 in sinus, respirations are 16 and she is afebrile. HEENT: No JVD. CHEST: Clear to auscultation and percussion. HEART: [place] prosthetic valve sounds heard. ABDOMEN: Soft, obese, nontender with normoactive bowel sounds. EXTREMITIES: No edema. DIAGNOSTIC DATA: INR is 2.18 from this morning. IMPRESSION: 1. Recent chest and back pain, appears to be noncardiac in nature. 2. Mitral valve disease status post valve replacement with mechanical prosthesis, remains on Lovenox pending colonoscopy. 3. Iron-deficiency anemia, workup in progress. 4. Rest of problems as noted. RECOMMENDATIONS: From cardiac standpoint, she is stable to proceed with colonoscopy as planned. Coumadin will remain on hold and she will remain on subcutaneous Lovenox for anticoagulation given her prosthetic valve. Following colonoscopy, warfarin will be resumed. We will continue to follow and make further recommendations as appropriate. Manuel Bejarano MD
[2018-12-16] MEDS: Famotidine 20mg/50ml 20 MG/50 ML BAG IVPB SCH ×2 (09:19→22:14)
--- NOTE | 2018-12-16 10:29 | CP.PCM.PN ---
<MariejovaniRuben chino - Last Filed: 12/16/18 14:43> Subjective - Date & Time of Evaluation Date of Evaluation: 12/16/18 Time of Evaluation: 11:44 - Subjective Subjective: No acute events overnight. Concerned about lovenox and metoprolol medications. Concerned about INR. +nausea. Objective - Vital Signs/Intake and Output Vital Signs (last 24 hours): Temp Pulse Resp BP Pulse Ox 97.8 F 62 19 122/87 98 12/16/18 05:12 12/16/18 09:19 12/16/18 05:12 12/16/18 09:19 12/16/18 05:12 Intake and Output: 12/16/18 12/16/18 06:59 18:59 Intake Total 720 Output Total 3 Balance 717 - Medications Medications: Current Medications Enoxaparin Sodium (Lovenox) 80 mg SC Q12H [facility]; Protocol Last Admin: 12/16/18 00:00 Dose: 80 mg Ferrous Gluconate (Fergon) 324 mg PO TID [facility] Last Admin: 12/16/18 09:19 Dose: 324 mg Famotidine (Pepcid 20mg/50ml Premix) 20 mg in 50 mls @ 100 mls/hr IVPB Q12 [facility] Last Admin: 12/16/18 09:19 Dose: 100 mls/hr Ondansetron HCl (Zofran Inj) 4 mg IVP Q6H PRN PRN Reason: Nausea/Vomiting Last Admin: 12/14/18 23:13 Dose: 4 mg Sotalol HCl (Betapace) 120 mg PO DAILY [facility] Last Admin: 12/16/18 09:19 Dose: 120 mg Warfarin Sodium (Coumadin) 10 mg PO 1800 [facility]; Protocol Zolpidem Tartrate (Ambien) 5 mg PO HS PRN; Protocol PRN Reason: Insomnia Last Admin: 12/15/18 22:19 Dose: 5 mg - Labs Labs: 12/15/18 07:00 12/15/18 07:00 PT 24.6 SECONDS (9.4-12.5) H 12/16/18 06:35 INR 2.18 12/16/18 06:35 - Constitutional Appears: Non-toxic, No Acute Distress - Head Exam Head Exam: ATRAUMATIC, NORMAL INSPECTION - Eye Exam Eye Exam: EOMI, Normal appearance - Respiratory Exam Respiratory Exam: Clear to Ausculation Bilateral, NORMAL BREATHING PATTERN - Cardiovascular Exam Cardiovascular Exam: REGULAR RHYTHM, +S1, +S2 - GI/Abdominal Exam GI & Abdominal Exam: Soft, Normal Bowel Sounds. absent: Tenderness - Neurological Exam Neurological Exam: Alert, Awake, Oriented x3 - Psychiatric Exam Psychiatric exam: Normal Affect, Normal Mood - Skin Skin Exam: Normal Color, Warm Assessment and Plan - Assessment and Plan (Free Text) Assessment: 53 yo F with PMH of rheumatic heart disease requiring mechanical mitral valve replacement on comadin, tricuspid valve repair, ventricular tachycardia s/p AICD, CHFrEF, diverticulosis, and obesity presents to [facility] for atypical chest pain. Patient was evaluated by fashion stylist, who stated that pain is unlikely due to cardiac ischemia. GI consulted for iron deficiency anemia and poor PO intake. Iron studies reviewed from 10/2018 consistent with iron deficiency anemia. Patient was placed on PO iron, but with inappropriate hemoglobin response. 1. Atypical Chest Pain possibly 2/2 GERD 2. Iron deficiency anemia 3. H/o sleeve gastrectomy 4. H/o mechanical mitral valve Plan: - Abdomen Duplex, r/o portal vein thrombosis - Will obtain EGD and colonoscopy records from [facility] - Plan for EGD/Colonoscopy on Tuesday - Hold Coumadin. Lovenox to bridge. NEED to hold day of dose. - Follow INR, may need PO vit K prior to endoscopy - CLD Patient seen and discussed in detail with Dr. Newby. See attestation <Pedro Luis Newby V - Last Filed: 12/16/18 23:56> Objective - Vital Signs/Intake and Output Vital Signs (last 24 hours): Temp Pulse Resp BP Pulse Ox 98.2 F 55 L 21 132/82 98 12/16/18 18:00 12/16/18 22:31 12/16/18 18:00 12/16/18 18:00 12/16/18 05:12 Intake and Output: 12/16/18 12/17/18 18:59 06:59 Intake Total 132 Balance 132 - Medications Medications: Current Medications Enoxaparin Sodium (Lovenox) 80 mg SC Q12H [facility]; Protocol Last Admin: 12/16/18 14:13 Dose: Not Given Ferrous Gluconate (Fergon) 324 mg PO TID [facility] Last Admin: 01/26/19 18:04 Dose: 324 mg Famotidine (Pepcid 20mg/50ml Premix) 20 mg in 50 mls @ 100 mls/hr IVPB Q12 [facility] Last Admin: 12/16/18 22:14 Dose: 100 mls/hr Amino Acids/Electrolytes/Dextrose (Clinimix 4.25/5 % "E" (2000 Ml)) 2,000 mls @ 82 mls/hr IV .Q24H [facility] Last Admin: 12/16/18 18:04 Dose: 82 mls/hr Fat Emulsion Intravenous (Intralipid 20%) 250 mls @ 21 mls/hr IV MWF@1800 [facility] Metoclopramide HCl (Reglan) 10 mg IVP ACHS [facility] Ondansetron HCl (Zofran Inj) 4 mg IVP Q6H PRN PRN Reason: Nausea/Vomiting Last Admin: 12/14/18 23:13 Dose: 4 mg Sotalol HCl (Betapace) 120 mg PO Q12 [facility] Last Admin: 12/16/18 22:31 Dose: Not Given Warfarin Sodium (Coumadin) 10 mg PO 1800 [facility]; Protocol Zolpidem Tartrate (Ambien) 5 mg PO HS PRN; Protocol PRN Reason: Insomnia Last Admin: 12/16/18 23:22 Dose: 5 mg - Labs Labs: 12/15/18 07:00 12/15/18 07:00 PT 24.6 SECONDS (9.4-12.5) H 12/16/18 06:35 INR 2.18 12/16/18 06:35 Attending/Attestation - Attestation I have personally seen and examined this patient.: Yes I have fully participated in the care of the patient.: Yes I have reviewed all pertinent clinical information, including history, physical exam and plan: Yes Notes (Text): patient is able to tolerate some liquid diet INR is elevated now to 2.1 Coumadin is on hold We will start the patient on Dulcolax tablets Will give 1 bottle magnesium citrate tomorrow and 1 more bottle on Tuesday a.m. for bowel preparation We did not receive previous endoscopy reports yet from [facility] Spoke with the nursing syrup shed supervisor and she was trying to get the records Patient's was at bedside 12/16/18 23:52
[2018-12-16] MEDS: Enoxaparin 80 mg Syringe SC SCH ×4 (11:17→23:45)
--- NOTE | 2018-12-16 16:49 | PN ---
DATE: 12/16/2018 SUBJECTIVE: This 53-year-old female was examined at her bedside on the cardiac glaser at the [facility] on the morning of Sunday, December 16, 2018. Present for the interview was her and nurse Jing Mello, registered nurse. I have discussed this case in great detail with Dr. Pedro Luis Newby from GI. The patient is being readied and has been cardiac cleared for attempt at colonoscopy, endoscopy by Dr. Newby on Tuesday. The patient's Coumadin has been withheld and she is currently receiving subcu Lovenox for anticoagulation prophylaxis of her replacement mitral valve. The patient was admitted with severe abdominal pain, nausea and vomiting and inability to tolerate any solid food. She is status post a gastric sleeve revision in September 2018 and since that time has lost 34 pounds at the expense of not being able to eat. PHYSICAL EXAMINATION VITAL SIGNS: At present she remains in normal sinus rhythm with a temperature of 97.8, respirations 19, pulse 64 and blood pressure 122/87. Pulse ox 98%. HEENT: Head normocephalic and atraumatic. Eyes: No icterus. Ears: Clear. Throat: Noninjected. NECK: Supple. HEART: S1 and S2. LUNGS: Clear. ABDOMEN: Soft. No rebound, no guarding. EXTREMITIES: No edema. SKIN: Without rash. NEUROLOGICAL: Intact. PSYCHOLOGICAL: Alert and anxious. VASCULAR: Legs warm to touch. LABORATORY DATA: White count 6900, hemoglobin 9.1, previously 9.5, hematocrit 31.2 and platelets 337,000. PT/INR is 2.18. Sodium 140, K 3.9, chloride 105, bicarb 30, BUN 8, creatinine 0.8 and random blood sugar 73. Urinalysis is unremarkable. IMPRESSION: A 53-year-old female with intractable nausea and vomiting and inability to tolerate any solid food status post gastric sleeve revision at [facility] in [place], [place] in September 2018 with a subsequent 34-pound weight loss and comorbidities of rheumatic heart disease status post mitral valve replacement on chronic anticoagulation with Coumadin, now on hold and receiving subcu Lovenox and comorbidities of history of palpitation, hypertension, insomnia, anxiety, iron-deficiency anemia, peptic ulcer disease with gastroesophageal reflux disease. The plan at present is to maintain the patient on the cardiac glaser. She continues on Zofran, Reglan, Pepcid, Lovenox. I have ordered parenteral nutrition, Intralipid infusion. Betapace has been adjusted to 120 mg p.o. every 12 hours as long as her systolic blood pressure is greater than 100 and pulse is greater than 50 and she is ordered to receive Ambien 5 mg p.o. at bedtime p.r.n. insomnia. The patient will be scheduled for a PT/INR, CBC in the a.m. Abdominal ultrasound has been ordered to rule out portal vein thrombosis. She can have a clear liquid diet as tolerated and greater than 35 minutes was spent in the care management, review of labs, orders and outlining of treatment plan for this patient today. All questions were answered. Vianca Perkins MD MTDFélix
[2018-12-17 04:19] LABS: HEMOGLOBIN 8.6 g/dL (12.0-16.0); MEAN CELL VOLUME 74.2 fl (80.0-105.0); MEAN CORPUSCULAR HGB CONC 29.7 g/dl (31.0-37.0); MEAN PLATELET VOLUME 10.5 fl (7.0-11.0); RBC 3.91 10^6/uL (3.5-6.1); WHITE BLOOD COUNT 7.1 10^3/uL (4.5-11.0)
[2018-12-17 05:08] LABS: INR 2.12
[2018-12-17] MEDS: Famotidine 20mg/50ml 20 MG/50 ML BAG IVPB SCH ×2 (10:38→22:30)
[2018-12-17] MEDS ORDERED: Bisacodyl 5mg EC Tab PO ONE ×2 (11:42→15:00)
[2018-12-17] MEDS ORDERED: Magnesium Citrate Oral SOL (300 ml) PO ONE (11:42)
--- NOTE | 2018-12-17 11:51 | CP.PCM.PN ---
Subjective - Date & Time of Evaluation Date of Evaluation: 12/17/18 Time of Evaluation: 11:47 - Subjective Subjective: Still with intermittent n/v. attempting reglan today with bowel prep. Otherwise no acute events. No bleeding, fevers. Objective - Vital Signs/Intake and Output Vital Signs (last 24 hours): Temp Pulse Resp BP Pulse Ox 98.3 F 57 L 18 123/76 99 12/17/18 06:00 12/17/18 10:42 12/17/18 06:00 12/17/18 10:42 12/17/18 06:00 Intake and Output: 12/17/18 12/17/18 06:59 18:59 Intake Total 240 Balance 240 - Medications Medications: Current Medications Bisacodyl (Dulcolax) 10 mg PO ONCE ONE Stop: 12/17/18 15:01 Enoxaparin Sodium (Lovenox) 80 mg SC Q12H [facility]; Protocol Last Admin: 12/16/18 23:45 Dose: 80 mg Ferrous Gluconate (Fergon) 324 mg PO TID [facility] Last Admin: 12/17/18 10:37 Dose: 324 mg Famotidine (Pepcid 20mg/50ml Premix) 20 mg in 50 mls @ 100 mls/hr IVPB Q12 [facility] Last Admin: 12/17/18 10:38 Dose: 100 mls/hr Amino Acids/Electrolytes/Dextrose (Clinimix 4.25/5 % "E" (2000 Ml)) 2,000 mls @ 82 mls/hr IV .Q24H [facility] Last Admin: 12/16/18 18:04 Dose: 82 mls/hr Fat Emulsion Intravenous (Intralipid 20%) 250 mls @ 21 mls/hr IV MWF@1800 [facility] Magnesium Citrate (Citrate Of Mag) 300 ml PO ONCE ONE Stop: 12/18/18 06:01 Metoclopramide HCl (Reglan) 10 mg IVP ACHS [facility] Last Admin: 12/17/18 10:38 Dose: 10 mg Ondansetron HCl (Zofran Inj) 4 mg IVP Q6H PRN PRN Reason: Nausea/Vomiting Last Admin: 12/14/18 23:13 Dose: 4 mg Sotalol HCl (Betapace) 120 mg PO Q12 [facility] Last Admin: 12/17/18 10:42 Dose: Not Given Warfarin Sodium (Coumadin) 10 mg PO 1800 [facility]; Protocol Zolpidem Tartrate (Ambien) 5 mg PO HS PRN; Protocol PRN Reason: Insomnia Last Admin: 12/16/18 23:22 Dose: 5 mg - Labs Labs: 12/17/18 04:00 12/15/18 07:00 PT 24.0 SECONDS (9.4-12.5) H 12/17/18 04:00 INR 2.12 12/17/18 04:00 - Constitutional Appears: Non-toxic, No Acute Distress - Head Exam Head Exam: ATRAUMATIC, NORMAL INSPECTION - Eye Exam Eye Exam: EOMI, Normal appearance - Respiratory Exam Respiratory Exam: Clear to Ausculation Bilateral, NORMAL BREATHING PATTERN - Cardiovascular Exam Cardiovascular Exam: REGULAR RHYTHM, +S1, +S2 - GI/Abdominal Exam GI & Abdominal Exam: Soft, Normal Bowel Sounds. absent: Tenderness - Extremities Exam Extremities Exam: Normal Inspection. absent: Pedal Edema - Psychiatric Exam Psychiatric exam: Normal Affect, Normal Mood - Skin Skin Exam: Dry, Normal Color Assessment and Plan - Assessment and Plan (Free Text) Assessment: 53 yo F with PMH of rheumatic heart disease requiring mechanical mitral valve replacement on comadin, tricuspid valve repair, ventricular tachycardia s/p AICD, CHFrEF, diverticulosis, and obesity presents to [facility] for atypical chest pain. Patient was evaluated by livestock judging coach, who stated that pain is unlikely due to cardiac ischemia. GI consulted for iron deficiency anemia and poor PO intake. Iron studies reviewed from 10/2018 consistent with iron deficiency anemi a. Patient was placed on PO iron, but with inappropriate hemoglobin response. 1. Atypical Chest Pain possibly 2/2 GERD 2. Iron deficiency anemia 3. H/o sleeve gastrectomy 4. H/o mechanical mitral valve Plan: - Abdomen Duplex, r/o portal vein thrombosis - Will obtain EGD and colonoscopy records from [facility] - Plan for EGD/Colonoscopy on Tuesday. Consent in chart. - Hold Coumadin. Lovenox to bridge. NEED to hold day of dose. - Follow INR, may need vit K prior to endoscopy, will discuss with cardiology - Start bowel prep with reglan scheduled. Dulcolax and Mg Citrate ordered. May need enema in AM. - CLD, NPO PM. Patient seen and discussed in detail with Dr. Newby. See attestation
[2018-12-17] MEDS ORDERED: Phytonadione 10 mg/ml Inj (Adult) SC ONE (13:47)
[2018-12-17] MEDS ORDERED: Enoxaparin 80 mg Syringe SC STA (16:01)
--- NOTE | 2018-12-17 18:47 | PN ---
DATE: 12/17/2018 SUBJECTIVE: This 53-year-old female was examined on the morning of 12/17/2018, in the presence of nurse, Alexandra Mello, on the cardiac glaser at the [facility]. She is being prepped for endoscopy and colonoscopy by Dr. Pedro Luis Newby from GI. Her Coumadin has been discontinued. She is receiving subcu Lovenox, and today's PT/INR was 2.12. The patient was given one dose of vitamin K 5 mg p.o. in anticipation of endoscopies in the a.m. She remains in a normal sinus rhythm on the quality assurance monitor body but still remains unable to eat due to abdominal pain and nausea and vomiting when she tries to take solid food. PHYSICAL EXAMINATION: VITAL SIGNS: Temperature 98.3, respirations 18, pulse 72, blood pressure 123/76, pulse ox 99% on room air. HEENT: Head: Normocephalic, atraumatic. Eyes: No icterus. Ears: Clear. Throat: Noninjected. NECK: Supple. HEART: S1, S2. LUNGS: Clear. ABDOMEN: Soft. EXTREMITIES: No edema. SKIN: Without rash. NEUROLOGICAL: Intact. PSYCHOLOGICAL: Alert. VASCULAR: Legs warm to touch. LABORATORY DATA: PT/INR 2.12. White count 7100, hemoglobin 8.6, hematocrit 29, platelets 307,000. Sodium 140, K 3.9, chloride 105, bicarb 30, BUN 8, creatinine 0.8, random blood sugar 73. Urinalysis was unremarkable. IMPRESSION: A 53-year-old female with abdominal pain, inability to tolerate solid food, status post gastric sleeve in 09/2018, subsequent to which she has lost 34 pounds secondary to being unable to eat any food, also with comorbidities of mitral valve replacement as a result of rheumatic fever as a child, chronic insomnia, chronic hypertension, iron deficiency anemia, peptic ulcer disease with gastroesophageal reflux disease. PLAN: At present is to continue Ambeffie Betapace. She is being prepped with citrate of magnesia. She is receiving SQ Lovenox. Coumadin is on hold. She requested Dulcolax 10 mg one dose. She continues on ferrous gluconate, Intralipid, IV Pepcid, IV Reglan and p.r.n. Zofran. The patient will have repeat PT/INR and CBC in the a.m. I have asked nurse, Alexandra Mello, to discuss the antibiotic prophylaxis given the patient's mechanical mitral valve and ICD with Dr. Pedro Luis Newby from . The patient remains on clear liquid diet. She will be n.p.o. after midnight, and based on clinical results, additional diagnostic workup and testing will be entertained. Greater than 35 minutes was spent in the care, adjustment of orders and outlining of treatment plan for this patient today and discussion of her case with nurse, Riaz. All questions were answered. Vianca Perkins MD MTDD
[2018-12-18 04:22] LABS: INR 1.46; PROTHROMBIN TIME 16.2 SECONDS (9.4-12.5)
[2018-12-18 04:49] LABS: HEMOGLOBIN 8.4 g/dL (12.0-16.0); MEAN CELL VOLUME 74.1 fl (80.0-105.0); MEAN CORPUSCULAR HEMOGLOBIN 21.5 pg (25.0-35.0); MEAN CORPUSCULAR HGB CONC 29.1 g/dl (31.0-37.0); MEAN PLATELET VOLUME 11.3 fl (7.0-11.0); RBC 3.9 10^6/uL (3.5-6.1); RED CELL DISTRIBUTION WIDTH 19.7 % (11.5-14.5); WHITE BLOOD COUNT 6.8 10^3/uL (4.5-11.0)
[2018-12-18] MEDS ORDERED: Magnesium Citrate Oral SOL (300 ml) PO ONE (06:00)
[2018-12-18] MEDS ORDERED: Bisacodyl 5mg EC Tab PO ONE (06:00)
[2018-12-18] MEDS: Famotidine 20mg/50ml 20 MG/50 ML BAG IVPB SCH ×3 (10:33→22:58)
[2018-12-18] MEDS ORDERED: Sodium Chloride 0.9% 1,000 ML IV SCH (12:30)
--- NOTE | 2018-12-18 13:21 | PN ---
DATE: 12/18/2018 SUBJECTIVE: This 53-year-old female was examined on the cardiac glaser at the [facility] on 12/18/2018. Her case was reviewed in detail with her nurse Amada. The patient is being prepped for endoscopy/colonoscopy today under the direction of Dr. Pedro Luis Newby because of intractable abdominal pain, inability to eat solid food, persistent vomiting status post a gastric sleeve revision in September 2018 as well as iron-deficiency anemia, as discussed with the patient. Admission hemoglobin of 9.5 is presently 8.4. The patient states that her advertising intern at the [facility] in [place], [place] had planned on starting her on intravenous iron infusions. As discussed with the patient, this will be considered tomorrow post procedures. She is in a normal sinus rhythm on cardiac monitor technician. PHYSICAL EXAMINATION: VITAL SIGNS: Temperature 98.5, respirations 18, pulse 58 and blood pressure 111/59. Pulse ox 98% room air. HEENT: Head; normocephalic, atraumatic. Eyes: No icterus. Ears: Clear. Throat: Noninjected. NECK: Supple. HEART: Regular S1 and S2. LUNGS: Clear. ABDOMEN: Soft. No rebound, no guarding. EXTREMITIES: No edema. SKIN: Without rash. NEUROLOGIC: Intact. PSYCHOLOGIC: Alert. VASCULAR: Legs warm to touch. LABORATORY DATA: White count 6800, hemoglobin 8.4, hematocrit 28.9, platelets 329,000. PT/INR 1.46. Sodium 140, K 3.9, chloride 105, bicarb 30, BUN 8, creatinine 0.8, random blood sugar 73, calcium 9.5. Urinalysis was unremarkable. IMPRESSION: A 53-year-old female admitted with nausea, vomiting, abdominal pain, iron-deficiency anemia and inability to eat solid food status post a gastric sleeve revision in September 2018 at the [facility] in [place], [place] and since she has lost 34 pounds due to her inability to eat, with comorbidities of mitral valve replacement secondary to rheumatic fever as a child, chronic anxiety, chronic insomnia, hypertension, obesity, iron-deficiency anemia, peptic ulcer disease with gastroesophageal reflux disease and gastroparesis. PLAN: The plan is to continue Ambien, Betapace, IV PPN. Coumadin and Lovenox are currently on hold. She continues on oral iron, Intralipid., Pepcid, IV Reglan and IV Zofran p.r.n. nausea and vomiting. Based on her clinical results, additional diagnostic workup and testing will be entertained. She is currently n.p.o. and was advised of all of the above. Greater than 35 minutes was spent in the care and management, review of labs, orders and x-rays and discussion of this patient with her nurse Amada Sood registered nurse. Nurse Barrie will also discuss antibiotic prophylaxis and the fact that the patient has an ICD implantable defibrillator with Dr. Newby prior to endoscopy. All questions were answered. Vianca Perkins MD MTDD
[2018-12-18] MEDS ORDERED: Propofol 10 mg/ml Inj (20 ML) ONE (14:08)
[2018-12-18] MEDS ORDERED: Midazolam 2 MG/2 ML VIAL ONE (14:09)
[2018-12-18] MEDS ORDERED: Etomidate 20 mg/10ml Inj IV ONE (14:10)
[2018-12-18 14:52] VITALS: O2SAT 100
[2018-12-18] MEDS ORDERED: Fat Emulsion 20% IV 250 ML IV SCH (18:00)
[2018-12-18 18:30] VITALS: RESP 21; TEMP 98.7
[2018-12-18] MEDS: Enoxaparin 80 mg Syringe SC SCH ×2 (22:50→23:16)
[2018-12-19 07:23] LABS: HEMOGLOBIN 8.6 g/dL (12.0-16.0); MEAN CELL VOLUME 74.7 fl (80.0-105.0); MEAN CORPUSCULAR HEMOGLOBIN 21.7 pg (25.0-35.0); MEAN CORPUSCULAR HGB CONC 29.1 g/dl (31.0-37.0); PLATELET COUNT 316 10^3/uL (120.0-450.0); RBC 3.96 10^6/uL (3.5-6.1); RED CELL DISTRIBUTION WIDTH 19.9 % (11.5-14.5); WHITE BLOOD COUNT 6.4 10^3/uL (4.5-11.0)
[2018-12-19 07:33] LABS: BLOOD UREA NITROGEN 10 mg/dL (7-21); GFR NON-AFRICAN AMERICAN > 60
[2018-12-19 07:36] LABS: INR 1.2; PROTHROMBIN TIME 13.6 SECONDS (9.4-12.5)
[2018-12-19] MEDS: Enoxaparin 80 mg Syringe SC SCH (10:03)
[2018-12-19 10:05] VITALS: BP 125/75; PULSE 66
[2018-12-19] MEDS: Famotidine 20mg/50ml 20 MG/50 ML BAG IVPB SCH (10:13)
[2018-12-19] MEDS ORDERED: Potassium Chloride 20 mEq ER Tab PO ONE (10:23)
--- NOTE | 2018-12-19 10:40 | CP.PCM.PN ---
Subjective - Date & Time of Evaluation Date of Evaluation: 12/19/18 Time of Evaluation: 10:36 - Subjective Subjective: GI Progress Note for Dr. Newby Patient seen and examined at bedside. No acute overnight events. Patient tolerating diet and reports normal BM. Patient denies CP, SOB, n/v/d, abdominal pain, fever, chills, HILL, or dizziness. Objective - Vital Signs/Intake and Output Vital Signs (last 24 hours): Temp Pulse Resp BP Pulse Ox 98.7 F 66 21 125/75 100 12/18/18 18:30 12/19/18 10:01 12/18/18 18:30 12/19/18 10:01 12/18/18 15:16 Intake and Output: 12/19/18 12/19/18 06:59 18:59 Intake Total 50 Balance 50 - Medications Medications: Current Medications Enoxaparin Sodium (Lovenox) 80 mg SC Q12 [facility] Last Admin: 12/19/18 10:03 Dose: 80 mg Famotidine (Pepcid) 20 mg PO 1000,2200 [facility] Ferrous Gluconate (Fergon) 324 mg PO TID [facility] Last Admin: 12/19/18 10:01 Dose: 324 mg Amino Acids/Electrolytes/Dextrose (Clinimix 4.25/5 % "E" (2000 Ml)) 2,000 mls @ 82 mls/hr IV .Q24H [facility] Last Admin: 12/18/18 22:59 Dose: Not Given Fat Emulsion Intravenous (Intralipid 20%) 250 mls @ 21 mls/hr IV MWF@1800 [facility] Last Admin: 12/18/18 22:59 Dose: Not Given Metoclopramide HCl (Reglan) 5 mg PO 0600,1130,1630,2200 [facility] Ondansetron HCl (Zofran Tab) 4 mg PO Q8H PRN PRN Reason: Nausea/Vomiting Sotalol HCl (Betapace) 120 mg PO Q12 [facility] Last Admin: 12/19/18 10:01 Dose: 120 mg Warfarin Sodium (Coumadin) 10 mg PO 1800 [facility] Zolpidem Tartrate (Ambien) 5 mg PO HS PRN; Protocol PRN Reason: Insomnia Last Admin: 12/18/18 23:35 Dose: 5 mg - Labs Labs: 12/19/18 07:00 12/19/18 07:00 PT 13.6 SECONDS (9.4-12.5) H 12/19/18 07:00 INR 1.20 12/19/18 07:00 - Constitutional Appears: No Acute Distress - Head Exam Head Exam: NORMAL INSPECTION - Eye Exam Eye Exam: Normal appearance Pupil Exam: NORMAL ACCOMODATION - ENT Exam ENT Exam: Mucous Membranes Moist, Normal Exam - Neck Exam Neck Exam: Normal Inspection - Respiratory Exam Respiratory Exam: Clear to Ausculation Bilateral. absent: Rales, Rhonchi, Wheezes - Cardiovascular Exam Cardiovascular Exam: RRR, +S1, +S2. absent: Gallop, Rubs, Murmur - GI/Abdominal Exam GI & Abdominal Exam: Soft. absent: Distended, Guarding, Tenderness, Rebound - Extremities Exam Extremities Exam: Normal Inspection - Back Exam Back Exam: NORMAL INSPECTION - Neurological Exam Neurological Exam: Alert, Awake, Oriented x3 - Psychiatric Exam Psychiatric exam: Normal Affect - Skin Skin Exam: Normal Color, Warm Assessment and Plan - Assessment and Plan (Free Text) Assessment: 53 yo F with PMH of rheumatic heart disease requiring mechanical mitral valve replacement on comadin, tricuspid valve repair, ventricular tachycardia s/p AICD, CHFrEF, diverticulosis, and obesity presents to [facility] for atypical chest pain. Patient was evaluated by hair worker, who stated that pain is unlikely due to cardiac ischemia. GI consulted for iron deficiency anemia and poor PO intake. Iron studies reviewed from 10/2018 consistent with iron deficiency anemia. 1. Atypical Chest Pain, resolved 2. Iron deficiency anemia 3. H/o sleeve gastrectomy 4. H/o mechanical mitral valve Plan: - Clear for DC from GI standpoint - Colonoscopy records from [facility] reviewed - Resume anticoagulation - Recommend transition to PO medications - See official report for procedure results Patient seen and discussed in detail with Dr. Newby. Ze Castellon, DO PGY2
--- NOTE | 2018-12-19 20:25 | US ---
PROCEDURE: Portal vein duplex ultrasound. CLINICAL HISTORY: Deteriorating liver function. Evaluate for portal vein thrombosis. PHYSICIAN(S): Naseem Blackburn M.D. FINDINGS: The extrahepatic portal vein is patent with hepatopetal flow. No sonographic evidence for thrombus or obstruction is seen. The 3 hepatic veins are visualized centrally and patent. The hepatic artery is patent. The spleen is normal in size. No ascites is appreciated in the upper abdomen IMPRESSION: 1. Patent portal vein with hepatopetal flow.
--- NOTE | 2018-12-20 01:37 | DS ---
HISTORY OF PRESENT ILLNESS: This 53-year-old female was examined on the cardiac glaser at the [facility] on the morning of 12/19/2018 in the presence of her nurse, Amada Thomas, registered nurse. 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 DISPOSITION: Home. HOSPITAL COURSE: The patient will follow up with her primary care physician in 48 hours. The patient also will follow up with her photoengraving sketch maker, Dr. Mclean, medical doctor within the next week and also we will follow up with her trash collector supervisor regarding the scheduling of intravenous iron infusion. The patient was given copies of most recent laboratories as well as her endoscopy, colonoscopy reports completed by Dr. Pedro Luis Newby on Tuesday12/18/2018 to be reviewed with her bariatric surgeon who may need to consider a surgical repair of her current gastric sleeve revision. In summary, this 53-year-old female was admitted to [facility] with nausea, vomiting, intolerance to any solid foods and required IV fluids, IV TPN, and was readied for endoscopy and colonoscopy which was completed and revealed diverticulosis, internal hemorrhoids with no evidence of colonic pathology. She had an L-shaped stomach, status post her gastric sleeve revision done by [facility]. The patient was cleared for discharge by Dr. Pedro Luis Newby from GI. She was told to eat nothing more than a pureed diet and liquids at this point in time. At the time of her discharge interview, her temperature was 98.7, respirations 21, pulse 62 and blood pressure 112/67. She was in a normal sinus rhythm on lunchroom monitor. Her labs show white count 6400, hemoglobin 8.6, hematocrit 29.6, platelets 316,000. Her PT/INR is 1.2, but she will go home and resume Coumadin 7.5 mg p.o. daily while bridging herself with Lovenox 80 mg subcutaneously every 12 and monitoring her INR on a daily PT/INR testing apparatus. She was given potassium 40 mEq p.o. x1 dose. For discharge, potassium of 3.3 with a sodium of 141, chloride 107, bicarb of 29, BUN of 10, creatinine 0.6 and random blood sugar 70 on the morning of discharge. The patient is discharged to home. We will follow up with PMD and surgical [facility] [place] within the next 48 hours and discharge medications will also include Ambien 5 mg p.o. at bedtime p.r.n. insomnia, Betapace 120 mg p.o. b.i.d., Coumadin 7.5 mg p.o. daily, monitoring INR daily, and holding for any Coumadin, any INR level greater than 3.0. She continues on ferrous gluconate 324 mg p.o. t.i.d., Lovenox 80 mg subcutaneously Every 12, Pepcid 20 mg p.o. b.i.d. p.r.n., and has been advised for any change in signs and symptoms to present directly to the [facility] emergency room. Greater than 35 minutes was spent in the care management, review of labs, orders and adjustment of medication for this patient today and the patient was discharged with instructions given in the presence of her nurse, Amada Zuñiga. All questions were answered. Vianca Perkins MD MTDD
== END 2018-12-19 12:16 | disposition home or self-care (01) | DRG 313 ==
LOC: ED 13:16 → ERH 16:23 → 2RNO 18:56 → OBSVTOIN 12-14 12:00
PROVIDERS: ADMIT Internal Medicine; ATTEND Internal Medicine
PROC: 0DJ08ZZ Inspection of Upper Intestinal Tract, Via Natural or Artificial Opening Endoscopic (ICD-10-PCS; principal; 2018-12-18 14:45)
PROC: 0DJD8ZZ Inspection of Lower Intestinal Tract, Via Natural or Artificial Opening Endoscopic (ICD-10-PCS; 2018-12-18 14:45)
DX: R07.89 Other chest pain (principal); I50.20 Unspecified systolic (congestive) heart failure; I42.9 Cardiomyopathy, unspecified; R10.9 Unspecified abdominal pain; I11.0 Hypertensive heart disease with heart failure; R11.2 Nausea with vomiting, unspecified; D50.9 Iron deficiency anemia, unspecified; I48.0 Paroxysmal atrial fibrillation; I25.10 Atherosclerotic heart disease of native coronary artery without angina pectoris; J44.9 Chronic obstructive pulmonary disease, unspecified; K44.9 Diaphragmatic hernia without obstruction or gangrene; K31.84 Gastroparesis; K57.30 Diverticulosis of large intestine without perforation or abscess without bleeding; K64.8 Other hemorrhoids; K21.9 Gastro-esophageal reflux disease without esophagitis; K27.9 Peptic ulcer, site unspecified, unspecified as acute or chronic, without hemorrhage or perforation; F51.04 Psychophysiologic insomnia; F41.9 Anxiety disorder, unspecified; E66.9 Obesity, unspecified; Z68.36 Body mass index [BMI] 36.0-36.9, adult; Z98.84 Bariatric surgery status; Z79.01 Long term (current) use of anticoagulants; Z95.2 Presence of prosthetic heart valve; Z95.810 Presence of automatic (implantable) cardiac defibrillator